=== PATIENT | female | born 1960 | race Caucasian/White ===

== ENCOUNTER 2017-02-16 16:38 | Emergency (ER) | payer OTHER ==
[2017-02-16] MEDS ORDERED: BACIGUENT PACKET TP ONE (17:39)
[2017-02-16] MEDS ORDERED: KEFZOL 1 GM IM ONE (17:40)
[2017-02-16] MEDS ORDERED: BACIGUENT PACKET ONE (17:44)
[2017-02-16] MEDS ORDERED: KEFZOL 1 GM ONE (17:44)
--- NOTE | 2017-02-16 17:46 | ERPHSYRPT ---
- History of Present Illness Time Seen by Provider: 02/16/17 17:39 Source: patient Exam Limitations: no limitations Patient Subjective Stated Complaint: pain and ulcer to left lower leg for one year. took antibiotics in december and it got better but over the past month has gotten worse. Triage Nursing Assessment: ambulated to room without difficulty. skin w/d, color normal. has open area to left ankle with minimal drainage. Physician History: 56-year-old white female arrives with complaint of a ulcer on her left lower leg symptoms for a year. She states she has been seen by her family secondary to this having been recently placed on Bactrim and then changed to doxycycline today when she was seen by nurse practitioner. She has no nausea no vomiting no fevers She does feel like her ulcer is worse for the past couple days. Past medical history includes GERD, osteoarthritis, seizures in the distant past. Past surgical history includes cholecystectomy, tubal ligation, hernia and varicose veins. \ Social history is positive for tobacco Timing/Duration: other (symptoms for a year worse the past couple of weeks) Severity: moderate Modifying Factors: Improves With: other (patient had been on Bactrim and was placed on doxycycline today by outpatient clinic) Allergies/Adverse Reactions: No Known Drug Allergies Allergy (Verified 02/16/17 16:58) Home Medications: Doxycycline Hyclate 100 mg [Vibramycin 100 MG] 100 mg PO BID 02/16/17 [ History] Hx Tetanus, Diphtheria Vaccination/Date Given: No Hx Influenza Vaccination/Date Given: No Hx Pneumococcal Vaccination/Date Given: No - Review of Systems Constitutional: No Fever, No Chills Eyes: No Symptoms Ears, Nose, & Throat: No Symptoms Respiratory: No Cough, No Dyspnea Cardiac: No Chest Pain, No Edema, No Syncope Abdominal/Gastrointestinal: No Abdominal Pain, No Nausea, No Vomiting, No Diarrhea Genitourinary Symptoms: No Dysuria Musculoskeletal: Other (left leg pain at ulcer) Skin: Other (venous stasis ulcer left distal leg) Neurological: No Dizziness, No Focal Weakness, No Sensory Changes Psychological: No Symptoms Endocrine: No Symptoms All Other Systems: Reviewed and Negative - Past Medical History Pertinent Past Medical History: Yes Neurological History: Seizures ENT History: No Pertinent History Cardiac History: No Pertinent History Respiratory History: No Pertinent History Endocrine Medical History: No Pertinent History Musculoskeletal History: Osteoarthritis GI Medical History: GERD History: No Pertinent History Psycho-Social History: No Pertinent History Female Reproductive Disorders: No Pertinent History Other Medical History: last seizure was 1968 - Past Surgical History Past Surgical History: Yes Neuro Surgical History: No Pertinent History Cardiac: No Pertinent History Respiratory: No Pertinent History Gastrointestinal: Cholecystectomy, Hernia Repair Genitourinary: No Pertinent History Musculoskeletal: No Pertinent History Female Surgical History: Tubal Ligation Other Surgical History: Varicose vein surgery - Social History Smoking Status: Current every day smoker How long have you smoked: 30 Exposure to second hand smoke: No Drug Use: none Patient Lives Alone: No - Nursing Vital Signs Nursing Vital Signs: Initial Vital Signs Temperature 98 F 02/16/17 16:53 Pulse Rate 59 L 02/16/17 16:53 Respiratory Rate 16 02/16/17 16:53 Blood Pressure 164/88 02/16/17 16:53 O2 Sat by Pulse Oximetry 97 02/16/17 16:53 Pain Scale Pain Intensity 10 - Physical Exam General Appearance: no apparent distress, alert Eye Exam: PERRL/EOMI, eyes nml inspection Ears, Nose, Throat Exam: normal ENT inspection, TMs normal, pharynx normal, moist mucous membranes Neck Exam: normal inspection, non-tender, supple, full range of motion Respiratory Exam: normal breath sounds, lungs clear, No respiratory distress Cardiovascular Exam: regular rate/rhythm, normal heart sounds, normal peripheral pulses Gastrointestinal/Abdomen Exam: soft, normal bowel sounds, No tenderness, No mass Back Exam: normal inspection, normal range of motion, No CVA tenderness, No vertebral tenderness Extremity Exam: other (patient with multiple varicosities the lower legs venous- stasis ulcer approximately 4 cm left medial lower leg appears to be dry and is not weeping) Neurologic Exam: alert, oriented x 3, cooperative, normal mood/affect, nml cerebellar function, nml station & gait, sensation nml, No motor deficits Skin Exam: warm, dry, other (4 cm venous stasis ulcer left medial leg appears to be dry does not appear to be weeping), No rash Lymphatic Exam: No adenopathy SpO2 Interpretation: normal (97%) SpO2: 97 - Course Nursing assessment & vital signs reviewed: Yes Ordered Tests: Active Orders 24 hr Category Date Time Status Wound Care STAT Care 02/16/17 17:39 Active Medication Summary Generic Name Dose Route Start Last Admin Trade Name Freq PRN Reason Stop Dose Admin Cefazolin Sodium 1 g 02/16/17 17:40 Kefzol 1 Gm IM 02/16/17 17:41 STAT ONE Discontinued Medications Generic Name Dose Route Start Last Admin Trade Name Freq PRN Reason Stop Dose Admin Bacitracin 0.9 gm 02/16/17 17:39 Baciguent Packet TP 02/16/17 17:40 STAT ONE - Progress Progress: improved Progress Note: 02/16/17 17:44 56-year-old white female with the what appears to be a venous stasis ulcer on her left medial lower leg symptoms for a year. She states that it had improved with antibiotics in the past however recently it had become erythematous and began to feel painful. She hasn't seen her family doctor was placed on Bactrim she states that she was changed to doxycycline today by the outpatient clinic. She states she has not been placed on anything for pain. Will go ahead and have the nurses clean the area apply bacitracin. Will give the patient was shot of Rocephin. Will have patient remain on doxycycline. Will write for a very small amount of the [place] patient has been warned that she is not to be on this medication for more than a brief period of time. - Departure Time of Disposition: 17:46 Departure Disposition: Home Clinical Impression: Venous stasis ulcer Qualifiers: Venous stasis ulcer site: other part of lower leg Varicose vein presence: with varicose veins Laterality: left Non-pressure ulcer stage: unspecified non- pressure ulcer stage Qualified Code(s): I83.028 - Varicose veins of left lower extremity with ulcer other part of lower leg; L97.829 - Non-pressure chronic ulcer of other part of left lower leg with unspecified severity Condition: Fair Critical Care Time: No Additional Instructions: Return home. Doxycycline as previously prescribed to today by outpatient clinic. [place] 5/325 #12 one orally every 4-6 hours as needed for pain. Clean area and apply bacitracin daily. Follow-up with Dr. Marquez. Return for acute distress or for severe symptoms. Prescriptions: Hydrocodone/Acetaminophen [[place] 5-325 Tablet] 1 tab PO Q4-6HPRN PRN #12 tablet PRN Reason: Pain
[2017-02-16 17:54] VITALS: BP 127/84; PULSE 52; O2SAT 96
== END 2017-02-16 18:14 | disposition home or self-care (01) ==
LOC: ED 16:38
DX: I83.028 Varicose veins of left lower extremity with ulcer other part of lower leg (principal); L97.829 Non-pressure chronic ulcer of other part of left lower leg with unspecified severity; Z79.899 Other long term (current) drug therapy
CPT/HCPCS: 96372; 99284; J0690; A9270-GY

== ENCOUNTER 2017-07-17 11:38 | Emergency (ER) | payer OTHER, SELFPAY ==
--- NOTE | 2017-07-17 12:11 | ERPHSYRPT ---
- History of Present Illness Time Seen by Provider: 07/17/17 11:58 Source: patient Exam Limitations: no limitations Patient Subjective Stated Complaint: pt states she noticed her right foot hurting for the past 1 week. worse over the past few days. denies any injury. states she has trouble with circulation in both extremities. Triage Nursing Assessment: pt pink, warm, dry. bilaterl lower extremities have edema. pedal pulses equal and palpable. no bruising or deformities noted. Physician History: 56-year-old white female arrives with complaint of pain and swelling of her right foot and distal leg symptoms 1 week she denies any injury. Patient does have a history of [place] these she apparently has had superficial thrombophlebitis in the past. She states she takes [place] for pain she is also been taking Advil and Aleve without relief. She states she contacted her vascular specialist and he recommended that she come to the emergency room because she was unable to get into her clinic here at [facility]. Patient has not had any fevers no nausea no vomiting she denies any injury to her leg Past medical history includes GERD, osteoarthritis, seizures Varicosities in her legs Superficial thrombophlebitis Past surgical history includes cholecystectomy, tubal ligation, hernia, varicose veins. social history is positive for [place]bb[place] use. Method of Injury: unknown Occurred: last week Quality: constant Severity of Pain-Max: mild Severity of Pain-Current: mild Lower Extremities Pain: leg: right, foot: right Modifying Factors: Improves With: nothing Associated Symptoms: none Allergies/Adverse Reactions: No Known Drug Allergies Allergy (Verified 07/17/17 11:58) Home Medications: Meloxicam 15 mg [Meloxicam 15 MG] 15 mg PO DAILY 07/17/17 [History] Hx Tetanus, Diphtheria Vaccination/Date Given: Yes (up to date) Hx Influenza Vaccination/Date Given: No Hx Pneumococcal Vaccination/Date Given: No Immunizations Up to Date: Yes - Review of Systems Constitutional: No Fever, No Chills Eyes: No Symptoms Ears, Nose, & Throat: No Symptoms Respiratory: No Cough, No Dyspnea Cardiac: No Chest Pain, No Edema, No Syncope Abdominal/Gastrointestinal: No Abdominal Pain, No Nausea, No Vomiting, No Diarrhea Musculoskeletal: Arthralgias, Other (pain and swelling right distal leg and foot ) Skin: No Rash Neurological: No Dizziness, No Focal Weakness, No Sensory Changes Psychological: No Symptoms Endocrine: No Symptoms All Other Systems: Reviewed and Negative - Past Medical History Pertinent Past Medical History: Yes Neurological History: Seizures ENT History: No Pertinent History Cardiac History: No Pertinent History Respiratory History: No Pertinent History Endocrine Medical History: No Pertinent History Musculoskeletal History: Osteoarthritis GI Medical History: GERD History: No Pertinent History Psycho-Social History: No Pertinent History Female Reproductive Disorders: No Pertinent History Other Medical History: last seizure was 1968 - Past Surgical History Past Surgical History: Yes Neuro Surgical History: No Pertinent History Cardiac: No Pertinent History Respiratory: No Pertinent History Gastrointestinal: Cholecystectomy, Hernia Repair Genitourinary: No Pertinent History Musculoskeletal: No Pertinent History Female Surgical History: Tubal Ligation Other Surgical History: Varicose vein surgery - Social History Smoking Status: Current every day smoker How long have you smoked: 40 Exposure to second hand smoke: No Drug Use: none Patient Lives Alone: No - Female History Hx Now: No - Nursing Vital Signs Nursing Vital Signs: Initial Vital Signs Temperature 98.0 F 07/17/17 11:57 Pulse Rate 58 L 07/17/17 11:57 Respiratory Rate 18 07/17/17 11:57 Blood Pressure 144/95 07/17/17 11:57 O2 Sat by Pulse Oximetry 99 07/17/17 11:57 Pain Scale Pain Intensity 6 - Physical Exam General Appearance: alert, obese Eyes, Ears, Nose, Throat Exam: moist mucous membranes Neck Exam: non-tender, supple Cardiovascular/Respiratory Exam: chest non-tender, normal breath sounds, regular rate/rhythm, no respiratory distress Gastrointestinal/Abdominal Exam: non-tender, guarding Back Exam: normal inspection, No vertebral tenderness Hips Exam: bilateral: non-tender, normal inspection, normal range of motion, no evidence of injury Legs Exam: right leg: swelling, left leg: non-tender, normal inspection, bilateral leg: normal range of motion, no evidence of injury, other (multiple varicosities bilateral lower legs and feet pain with palpation right distal leg anteriorly posteriorly pain with palpation right proximal foot dorsal pedal posterior tibial pulses intact and symmetrical bilaterally good capillary refill all toes bilaterally) Knees Exam: bilateral knee: non-tender, normal inspection, normal range of motion, no evidence of injury Foot Exam: right foot: swelling, other (pain with palpation right proximal foot) , left foot: non-tender, normal inspection, bilateral foot: normal range of motion, no evidence of injury DTR - Lower Extremities Exam: ankle (R): 2+, ankle (L): 2+ Neuro/Tendon Exam: normal sensation, normal motor functions Mental Status Exam: alert, oriented x 3, cooperative Skin Exam: normal color, warm, dry SpO2 Interpretation: normal (99%) SpO2: 99 Oxygen Delivery: Room Air - Course Nursing assessment & vital signs reviewed: Yes - Radiology Exams Right Foot X-ray Interpretation: Discussed w/ radiologist, Other (osteopeninia and mild spurring of the midfoot and plantar calcaneus. No new or acute findings) Right Ankle X-ray Interpretation: Discussed w/ radiologist, Other (x-ray right ankle: Osteopenia and tiny spurring of the midfoot and plantar calcaneus. Diffuse soft tissue swelling/edema. Tiny soft tissue calcific granuloma in the anterior lateral lower leg. No acute fracture, dislocation, or suspicious bony lesions.) - Radiology Ultrasound Exam Venous Upper Extremity Ultrasound: discussed w/radiologist, Other (venous Doppler right lower extremity : Right leg negative for DVT) Ordered Tests: Active Orders 24 hr Category Date Time Status ANKLE (3 VIEWS) Stat Exams 07/17/17 13:15 Completed FOOT (MINIMUM 3 VIEWS) Stat Exams 07/17/17 13:15 Completed VENOUS UNILAT/LIMITED EXTREMIT [US] Stat Exams 07/17/17 13:00 Completed BMP Stat Lab 07/17/17 12:15 Completed CBC W DIFF Stat Lab 07/17/17 12:15 Completed D-DIMER QUANTITATION Stat Lab 07/17/17 12:15 Completed Medication Summary Discontinued Medications Generic Name Dose Route Start Last Admin Trade Name Amanda PRN Reason Stop Dose Admin Hydrocodone Bitart/Acetaminophen 1 tab 07/17/17 13:17 07/17/17 13:22 [place] 5/325 Mg PO 07/17/17 13:18 1 tab STAT ONE Administration Hydrocodone Bitart/Acetaminophen Confirm 07/17/17 13:21 [place] 5/325 Mg Administered 07/17/17 13:22 Dose 1 tab .ROUTE .STK-MED ONE Lab/Rad Data: Laboratory Result Diagrams 07/17/17 12:15 07/17/17 12:15 Laboratory Results 07/17/17 07/17/17 07/17/17 Range/Units 12:15 12:15 12:15 WBC 4.0 (4.0-10.5) K/mm3 RBC 3.72 L (4.1-5.4) M/mm3 Hgb 11.3 L (12.0-16.0) gm/dl Hct 37.4 (35-47) % MCV 100.5 H (78-100) fl MCH 30.3 (26-32) pg MCHC 30.2 L (32-36) g/dl RDW 14.0 (11.5-14.0) % Plt Count 167 (150-450) K/mm3 MPV 10.4 H (6-9.5) fl Gran % 48.1 (36.0-66.0) % Lymphocytes % 37.9 (24.0-44.0) % Monocytes % 7.9 (0.0-12.0) % Eosinophils % 5.4 H (0.00-5.0) % Basophils % 0.7 (0.0-0.4) % Basophils # 0.03 (0-0.4) D-Dimer 464.23 (0-500) ng/mL Sodium 143 (136-145) mEq/L Potassium 4.1 (3.5-5.1) mEq/L Chloride 108 H (98-107) mEq/L Carbon Dioxide 28.5 (21-32) mEq/L Anion Gap 10.2 (5-15) MEQ/L BUN 20 (9-20) mg/dL Creatinine 0.63 (0.55-1.30) mg/dl Estimated GFR > 60 ML/MIN Glucose 89 (70-110) MG/DL Calcium 8.8 (8.5-10.1) mg/dL - Progress Progress: improved Progress Note: 07/17/17 13:18 56-year-old white female with history of superficial thrombophlebitis of her lower extremities in the past complains of pain in her right foot and distal leg symptoms for a week. Patient states she talked with her specialist today and she was recommended to come into the emergency room she does state that she's been having swelling. Patient had venous Doppler done of her right lower extremity no thromboembolism are noted. D-dimer within normal limits chemistry CBC essentially normal. Patient is tender with palpation to the distal right leg and proximal foot. Will go ahead and obtain x-ray to rule out osseous injury. Patient is on [place] at home for pain she states that these aren't helping her however she hasn't taken any this morning. Patient does have an appointment with her nurse practitioner tomorrow. Will give patient [place] await x-ray report. 07/17/17 13:56 X-ray the patient's right ankle shows osteopenia and tiny spurring of the midfoot and plantar calcaneus. Diffuse soft tissue swelling/edema. Tiny soft tissue calcific granuloma in the anterior lateral lower leg. No acute fracture , dislocation, or suspicious bony lesion. X-ray of the patient's right foot shows osteopenia and mild spurring of the mid foot and plantar calcaneus. No new/acute findings. Patient is already on meloxicam Patient has [place] at home prescribed by her family doctor. She is given [place] one tablet here in the emergency room she did not take any this morning. Patient states she has crutches and a walker at home. Will apply Adebayo wrap to the patient's right ankle. Patient is continue using her walker or crutches weightbearing as tolerated right foot and ankle. Take her meloxicam and [place] as prescribed by her family doctor. Patient states she is scheduled to see Awa Burden tomorrow. She'll be advised to ice and elevate her right ankle. I have told her I only want the [place] wrap on for a day or 2 unless told differently by her family doctor. - Departure Time of Disposition: 13:58 Departure Disposition: Home Clinical Impression: Pain in right ankle and joints of right foot Condition: Fair Critical Care Time: No Referrals: TOBIAS ROBERTSON [Primary Care Provider] - Additional Instructions: Return home. Ice and elevate your right ankle and foot 24-48 hours. Meloxicam as prescribed by your family doctor. [place] as prescribed by your family doctor. Use your crutches or walker weight-bearing as tolerated right foot. Follow-up with your family doctor (nurse practitioner) tomorrow as scheduled. Return for acute distress or for severe symptoms.
[2017-07-17 12:26] LABS: BASOPHIL % 0.7 % (0.0-0.4); Basophil (Absolute #) 0.03 (0-0.4); Eosinophil % 5.4 % (0.00-5.0); Eosinophil (Absolute #) 0.22 (0-0.5); Granulocyte Absolute (ANC) 1.94 (1.4-6.9); Granulocytes % 48.1 % (36.0-66.0); Hematocrit 37.4 % (35-47); Hemoglobin 11.3 gm/dl (12.0-16.0); Lymphocyte (Absolute #) 1.53 (1.0-4.6); Lymphocytes % 37.9 % (24.0-44.0); Mean Cell Volume 100.5 fl (78-100); Mean Corpuscular Hgb Concent. 30.2 g/dl (32-36); Mean Platelet Volume 10.4 fl (6-9.5); Monocyte (Absolute #) 0.32 (0.0-1.3); Monocytes % 7.9 % (0.0-12.0); Platelet Count 167 K/mm3 (150-450); Red Blood Count 3.72 M/mm3 (4.1-5.4)
[2017-07-17 12:28] LABS: Mean Corpuscular Hemoglobin 30.3 pg (26-32)
[2017-07-17 13:00] LABS: ANION GAP 10.2 MEQ/L (5-15); BLOOD UREA NITROGEN 20 mg/dL (9-20); CHLORIDE 108 mEq/L (98-107); Calcium 8.8 mg/dL (8.5-10.1); Carbon Dioxide 28.5 mEq/L (21-32); Creatinine 1 0.63 mg/dl (0.55-1.30); EST GLOMERULAR FILTRATION RATE > 60 ML/MIN; Glucose 89 MG/DL (70-110); Potassium 4.1 mEq/L (3.5-5.1); SODIUM 143 mEq/L (136-145)
[2017-07-17] MEDS ORDERED: NORCO 5/325 MG PO ONE (13:17)
[2017-07-17] MEDS ORDERED: NORCO 5/325 MG ONE (13:21)
--- NOTE | 2017-07-17 13:22 | XRAY ---
Indication: Right lower extremity pain and swelling 1 week. Pain with walking/activity. Two-dimensional sonogram and color Doppler imaging of the major venous vessels of the right leg was performed. Comparison: None No thrombus seen in the examined deep venous vessels of the right leg including greater saphenous vein. Veins demonstrate normal compressibility. Venous waveforms are normal with and without augmentation. Impression: Right leg negative for DVT.
--- NOTE | 2017-07-17 13:44 | XRAY ---
Indication: Pain and swelling 1 week. Comparison: June 20, 2010. 3 nonweightbearing views of the right foot again demonstrates osteopenia and mild spurring of the midfoot and plantar calcaneus. No new/acute findings.
--- NOTE | 2017-07-17 13:49 | XRAY ---
Indication: Pain and swelling 1 week. Comparison: June 20, 2010. 3 views of the right ankle again demonstrates osteopenia and tiny spurring of the midfoot and plantar calcaneus. Diffuse soft tissue swelling/edema. Tiny soft tissue calcific granuloma in the anterior lateral lower leg. No acute fracture, dislocation, or suspicious bony lesions.
[2017-07-17 13:50] VITALS: O2SAT 99
[2017-07-17 14:19] VITALS: BP 168/81; PULSE 59
== END 2017-07-17 14:20 | disposition home or self-care (01) ==
LOC: ED 11:38
DX: M25.571 Pain in right ankle and joints of right foot (principal); M19.90 Unspecified osteoarthritis, unspecified site; I83.93 Asymptomatic varicose veins of bilateral lower extremities; K21.9 Gastro-esophageal reflux disease without esophagitis; G40.909 Epilepsy, unspecified, not intractable, without status epilepticus
CPT/HCPCS: 36415; 73610; 73630; 80048; 85025; 85379; 93971; 99284; A9270-GY

== ENCOUNTER 2018-02-12 16:13 | Emergency (ER) | payer OTHER ==
[2018-02-12 16:43] VITALS: O2SAT 96
[2018-02-12] MEDS ORDERED: TORAdol 30 mg Injection IM ONE (17:11)
[2018-02-12] MEDS ORDERED: TORAdol 30 mg Injection ONE (17:14)
--- NOTE | 2018-02-12 17:17 | ERPHSYRPT ---
- History of Present Illness Time Seen by Provider: 02/12/18 16:49 Source: patient Exam Limitations: no limitations Patient Subjective Stated Complaint: fell yesterday outside. pain to left lower leg and foot and left ribs. also having pain and swelling to right hand. also having a headache. denies striking head. Triage Nursing Assessment: ambulated to room per self. skin w/d, color normal, resp easy. tender left lower leg, left lateral ribs, and right hand. swelling and discoloration noted to right hand. Physician History: 57-year-old white female arrives with complaint of pain in her left ribs, left foot right hand after falling yesterday. She states she has a headache however she did not hit her head nor did she have loss of consciousness. Past medical history includes GERD, osteoarthritis, seizures. Past surgical history includes cholecystectomy, tubal ligation, varicose veins, hernia Social history patient denies tobacco alcohol or illicit drug use Timing/Duration: yesterday Severity: moderate Modifying Factors: Improves With: nothing Associated Symptoms: chest pain (pain in the left ribs with palpation and movement), No nausea, No vomiting, No abdominal pain, No shortness of breath, No heartburn, No diaphoresis, No cough, No chills, No fever, No headaches, No loss of appetite, No malaise, No rash, No syncope, No seizure, No weakness Allergies/Adverse Reactions: No Known Drug Allergies Allergy (Verified 02/12/18 16:23) Home Medications: Furosemide 60 mg PO DAILY 02/12/18 [History] Ibuprofen 200 mg [Motrin 200 mg] 200 mg PO QIDPRN PRN 02/12/18 [History] Naproxen 500 mg PO BID 02/12/18 [History] Potassium Chloride 10 Meq Tab* [Klor Con 10 MEQ] 10 meq PO DAILY 02/12/18 [ History] Hx Tetanus, Diphtheria Vaccination/Date Given: No Hx Influenza Vaccination/Date Given: No Hx Pneumococcal Vaccination/Date Given: Yes - Review of Systems Constitutional: No Fever, No Chills Eyes: No Symptoms Ears, Nose, & Throat: No Symptoms Respiratory: Other (left rib pain) Cardiac: Chest Pain (left rib pain) Abdominal/Gastrointestinal: No Abdominal Pain, No Nausea, No Vomiting, No Diarrhea Musculoskeletal: Other (right hand pain and bruising and swelling, left foot pain) Skin: No Rash Neurological: No Dizziness, No Focal Weakness, No Sensory Changes Psychological: No Symptoms Endocrine: No Symptoms All Other Systems: Reviewed and Negative - Past Medical History Pertinent Past Medical History: Yes Neurological History: Epilepsy ENT History: No Pertinent History Cardiac History: Hypertension, Other Respiratory History: COPD Endocrine Medical History: No Pertinent History Musculoskeletal History: Osteoarthritis, Osteoporosis GI Medical History: GERD History: No Pertinent History Psycho-Social History: No Pertinent History Female Reproductive Disorders: No Pertinent History Other Medical History: vericose veins in B LE, surgery on B LE for vericose veins, torn R meniscus - Past Surgical History Past Surgical History: Yes Neuro Surgical History: No Pertinent History Cardiac: No Pertinent History Respiratory: No Pertinent History Gastrointestinal: Cholecystectomy, Hernia Repair Genitourinary: No Pertinent History Musculoskeletal: No Pertinent History Female Surgical History: Tubal Ligation Other Surgical History: Varicose vein surgery - Social History Smoking Status: Current every day smoker How long have you smoked: 40 Exposure to second hand smoke: No Drug Use: none Patient Lives Alone: No - Female History Hx Now: No - Nursing Vital Signs Nursing Vital Signs: Initial Vital Signs Temperature 98.1 F 02/12/18 16:15 Pulse Rate 80 02/12/18 16:15 Respiratory Rate 16 02/12/18 16:15 Blood Pressure 134/96 02/12/18 16:15 O2 Sat by Pulse Oximetry 96 02/12/18 16:15 Pain Scale Pain Intensity 6 - Physical Exam General Appearance: no apparent distress, alert Eye Exam: PERRL/EOMI, eyes nml inspection Ears, Nose, Throat Exam: normal ENT inspection, TMs normal, pharynx normal, moist mucous membranes Neck Exam: normal inspection, non-tender, supple, full range of motion Respiratory Exam: normal breath sounds, chest tenderness, other (Left ribs tender with palpation inferior to left breast) Cardiovascular Exam: regular rate/rhythm, normal heart sounds, normal peripheral pulses, capillary refill <2 sec, No murmur Gastrointestinal/Abdomen Exam: soft, normal bowel sounds, No tenderness, No mass Back Exam: normal inspection, normal range of motion, No CVA tenderness, No vertebral tenderness Extremity Exam: other (Moderate amount of edema right posterior hand, full range of motion all extremities, left pressing machine tender with palpation medially and laterally) Neurologic Exam: alert, oriented x 3, 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, 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, normal mood/affect, nml cerebellar function, nml station & gait, sensation nml, No motor deficits Skin Exam: normal color, warm, dry, No rash SpO2 Interpretation: normal (96%) SpO2: 96 Oxygen Delivery: Room Air - Course Nursing assessment & vital signs reviewed: Yes EKG Interpreted by Me: RATE (69 bpm), Sinus Rhythm, NORMAL AXIS, Other (EKG: Sinus rhythm, 69 bpm, normal axis, no acute ST or T wave changes noted) - Radiology Exams Right Hand X-ray Interpretation: Interpreted by me (fracture of right fourth metacarpal) Left Foot X-ray Interpretation: Interpreted by me, Negative, No Fracture, No Subluxation Chest X-ray Interpretation: Interpreted by me (chest x-ray: no rib fractures, no pneumothorax, no pneumonia) Ordered Tests: Active Orders 24 hr Category Date Time Status EKG-ER Only STAT Care 02/12/18 17:18 Active CHEST 2 VIEWS (PA AND LAT) Stat Exams 02/12/18 17:10 Taken FOOT (MINIMUM 3 VIEWS) Stat Exams 02/12/18 17:11 Taken HAND (MINIMUM 3 VIEWS) Stat Exams 02/12/18 17:09 Taken Medication Summary Discontinued Medications Generic Name Dose Route Start Last Admin Trade Name Amanda PRN Reason Stop Dose Admin Ketorolac Tromethamine 60 mg 02/12/18 17:11 02/12/18 17:15 Toradol 30 Mg Injection IM 02/12/18 17:12 60 mg STAT ONE Administration Ketorolac Tromethamine Confirm 02/12/18 17:14 Toradol 30 Mg Injection Administered 02/12/18 17:15 Dose 60 mg .ROUTE .STK-MED ONE - Progress Progress: improved Progress Note: 02/12/18 18:23 57-year-old white female arrives with complaint of moderate amount of pain and bruising to her dorsal right hand, pain in her left foot, and pain in her left ribs inferior to her breast after falling yesterday. X-ray of the right hand shows a fracture of her right fourth metacarpal. X-ray of the left foot no fractures or subluxation. Chest x-ray no rib fractures no pneumothorax no pneumonia. Will go ahead and place acewrap and postop shoe on the patient's left foot, will place OCL splint on the patient's right hand. Will write for Nelson for pain. Patient will need to follow-up with [facility]. 02/12/18 18:33 - Departure Time of Disposition: 18:33 Departure Disposition: Home Clinical Impression: Fracture of fourth metacarpal bone of right hand Qualifiers: Encounter type: initial encounter Fracture type: closed Metacarpal location: shaft Fracture alignment: displaced Qualified Code(s): S62.324A - Displaced fracture of shaft of fourth metacarpal bone, right hand, initial encounter for closed fracture Contusion of rib on left side Qualifiers: Encounter type: initial encounter Qualified Code(s): S20.212A - Contusion of left front wall of thorax, initial encounter Sprain of left foot Qualifiers: Encounter type: initial encounter Qualified Code(s): S93.602A - Unspecified sprain of left foot, initial encounter Condition: Fair Critical Care Time: No Referrals: TOBIAS ROBERTSON [Primary Care Provider] - Instructions: Preventing Falls Additional Instructions: Return home. Ice to left ribs left foot and right hand 24-48 hours. Elevate right hand 24-48 hours. Nelson as prescribed for pain. Follow-up with [facility] fracture clinic tomorrow a.m. 8:00. Return for acute distress or for severe symptoms. Prescriptions: Hydrocodone/Acetaminophen [Nelson 5-325 Tablet] 1 tab PO Q4-6HPRN PRN #12 tablet MDD 6 tablets PRN Reason: Pain
[2018-02-12 18:15] VITALS: BP 138/90; PULSE 69
--- NOTE | 2018-02-13 09:31 | XRAY ---
Exam: Two-view chest from 02/12/2018 Comparison: Two-view chest from 04/18/2016. Indication: Patient fell yesterday, complains of left-sided rib pain. Findings: Upright PA and lateral chest films are submitted for evaluation. The heart size and contour are normal. There is slight tortuosity of the distal descending thoracic aorta. The remainder of the wisam and mediastinal structures appears unremarkable. There is mild hyperinflation of the lungs. No air space infiltrates, vascular congestion, pleural fluid, or pneumothorax is seen. The bones appear demineralized. Subtle chronic changes are seen within the lower thoracic spine. This exam does not represent a detailed left rib exam, but a gross left rib fracture is not seen. Impression: 1. Mildly hyperinflated chest without evidence of acute cardiopulmonary disease. 2. No left-sided pneumothorax or pleural effusion is seen. I see no gross evidence of acute fracture of the left rib cage on the PA chest film. However, assessment is limited. If pain persists, left rib films may be helpful for further liquidation.
--- NOTE | 2018-02-13 10:10 | XRAY ---
Exam: 3 view right hand series from 02/12/2018. Comparison: None. Indication: Patient fell yesterday, complains of pain and swelling. Findings: AP, oblique, and 2 lateral radiographs are submitted for evaluation. There is an oblique, slightly overriding fracture of the distal shaft of the right fourth metacarpal. There is about 3.8 mm radial displacement of the distal fractured element at the radial margin of the fracture on the AP image. I also note minimal/mild palmar angulation of the distal fractured element on the lateral radiograph. Overlying soft tissue swelling is seen along the dorsal aspect of the metacarpal region. I also note an old healed fracture of the distal right radius. A sclerotic rimmed oval calcification adjacent to the distal right ulna is believed to represent an ununited old avulsion fracture injury. No other acute fracture or dislocation is seen. The joint spaces appear unremarkable. Impression: 1. Mildly overriding, oblique fracture of distal shaft of right fourth metacarpal with about 3.8 mm lateral displacement of the main distal fractured element along the radial margin of the fracture site. Cortical step-off deformity is slightly less along the ulnar aspect of the fracture measuring 2.5 mm. I also note minimal/mild palmar angulation of the distal fractured element on the lateral radiographs. 2. No other acute right hand fracture or dislocation is seen. 3. Old healed fractures of the distal right radius and ulnar styloid process.
--- NOTE | 2018-02-13 10:20 | XRAY ---
Exam: 3 views of the left foot from 02/12/2018. Comparison: 3 views of the left foot from 06/12/2007. Indication: Patient fell yesterday, complains of pain across the top of her left foot. Findings: AP, oblique, and lateral images of the left foot were obtained. I see no acute fracture or dislocation. The bones are demineralized. The tarsal-metatarsal joints align correctly. There are claw toe deformities of the left second through fifth toes with hyperextension of the respective second through fifth MTP joints and significant flexion of the PIP joints of the second through fifth toes. A tiny plantar left calcaneal spur is again seen. No radiopaque soft tissue foreign body is seen. No other significant focal bone or joint abnormality is seen. Impression: 1. No acute left foot fracture or dislocation is seen. 2. Claw toe deformities of the left second through fifth toes. To a lesser extent, I believe this was seen on the prior left foot study from 06/12/2007 as well. 3. Stable tiny plantar left calcaneal spur.
== END 2018-02-12 18:52 | disposition home or self-care (01) ==
LOC: ED 16:13
DX: S62.324A Displaced fracture of shaft of fourth metacarpal bone, right hand, initial encounter for closed fracture (principal); S20.212A Contusion of left front wall of thorax, initial encounter; S93.602A Unspecified sprain of left foot, initial encounter; W18.39XA Other fall on same level, initial encounter; R51 Headache; R07.89 Other chest pain; M79.641 Pain in right hand; M79.672 Pain in left foot
CPT/HCPCS: 29126; 71046; 73130; 73630; 93005; 96372; 99284; J1885

== ENCOUNTER 2019-01-04 14:11 | Emergency (ER) | payer OTHER ==
--- NOTE | 2019-01-04 14:54 | ERPHSYRPT ---
- History of Present Illness Time Seen by Provider: 01/04/19 14:51 Source: patient Exam Limitations: no limitations Patient Subjective Stated Complaint: states has had lower abd and lower back pain for three to four months. states she has been seeing family doctor and is supposed to get a ct scan done but is waiting on insurance to approve it. states pain keeps getting worse. hx of a fall in september with injury to both knees. Triage Nursing Assessment: ambulated to room per self without difficulty. skin w/d, color normal, resp easy. gait normal. abd soft, nontender at this time. lower backfiller. Physician History: Ms Montaño is a 58 years old female came to ER states has had lower abdominal and lower back pain for three to four months. states she has been seeing family doctor and is supposed to get a ct scan done but is waiting on insurance to approve it. states pain keeps getting worse. hx of a fall in september with injury to both knees Timing/Duration: week(s) (12- 14 weeks) Severity: mild Associated Symptoms: abdominal pain, other (back pain), No heartburn, No diaphoresis, No chills, No chest pain, No fever, No headaches, No loss of appetite, No malaise, No rash, No seizure, No weakness Allergies/Adverse Reactions: No Known Drug Allergies Allergy (Verified 02/12/18 16:23) Home Medications: Furosemide 60 mg PO DAILY 02/12/18 [History] Ibuprofen 200 mg [Motrin 200 mg] 200 mg PO QIDPRN PRN 02/12/18 [History] Naproxen 500 mg PO BID 02/12/18 [History] Potassium Chloride 10 Meq Tab* [Klor Con 10 MEQ] 10 meq PO DAILY 02/12/18 [ History] Hx Tetanus, Diphtheria Vaccination/Date Given: No Hx Influenza Vaccination/Date Given: No Hx Pneumococcal Vaccination/Date Given: Yes - Review of Systems Constitutional: No Fever, No Chills Eyes: No Symptoms Ears, Nose, & Throat: No Symptoms Respiratory: No Cough, No Dyspnea Cardiac: No Chest Pain, No Edema, No Syncope Abdominal/Gastrointestinal: Abdominal Pain, No Nausea, No Vomiting, No Diarrhea Genitourinary Symptoms: No Dysuria Musculoskeletal: Back Pain, No Neck Pain Skin: No Rash Neurological: No Dizziness, No Focal Weakness, No Sensory Changes Psychological: No Symptoms Endocrine: No Symptoms All Other Systems: Reviewed and Negative - Past Medical History Pertinent Past Medical History: Yes Neurological History: Epilepsy ENT History: No Pertinent History Cardiac History: Hypertension, Other Respiratory History: COPD Endocrine Medical History: No Pertinent History Musculoskeletal History: Osteoarthritis, Osteoporosis GI Medical History: GERD History: No Pertinent History Psycho-Social History: No Pertinent History Female Reproductive Disorders: No Pertinent History Other Medical History: vericose veins in B LE, surgery on B LE for vericose veins, torn R meniscus - Past Surgical History Past Surgical History: Yes Neuro Surgical History: No Pertinent History Cardiac: No Pertinent History Respiratory: No Pertinent History Gastrointestinal: Cholecystectomy, Hernia Repair Genitourinary: No Pertinent History Musculoskeletal: No Pertinent History Female Surgical History: Tubal Ligation Other Surgical History: Varicose vein surgery - Social History Smoking Status: Current every day smoker How long have you smoked: 49 Exposure to second hand smoke: No Drug Use: none Patient Lives Alone: No - Nursing Vital Signs Nursing Vital Signs: Initial Vital Signs Temperature 98.3 F 01/04/19 14:16 Pulse Rate 73 01/04/19 14:16 Respiratory Rate 16 01/04/19 14:16 Blood Pressure 161/77 01/04/19 14:16 O2 Sat by Pulse Oximetry 98 01/04/19 14:16 Pain Scale Pain Intensity 7 - Physical Exam General Appearance: no apparent distress, alert Eye Exam: PERRL/EOMI, eyes nml inspection Ears, Nose, Throat Exam: normal ENT inspection, TMs normal, pharynx normal, moist mucous membranes Neck Exam: normal inspection, non-tender, supple, full range of motion Respiratory Exam: normal breath sounds, lungs clear, No respiratory distress Cardiovascular Exam: regular rate/rhythm, normal heart sounds, normal peripheral pulses Gastrointestinal/Abdomen Exam: soft, normal bowel sounds, No tenderness, No mass Back Exam: normal inspection, normal range of motion, No CVA tenderness, No vertebral tenderness Extremity Exam: normal inspection, normal range of motion, pelvis stable Neurologic Exam: alert, oriented x 3, cooperative, normal mood/affect, nml cerebellar function, nml station & gait, sensation nml, No motor deficits Skin Exam: normal color, warm, dry, No rash Lymphatic Exam: No adenopathy SpO2: 98 - Course Nursing assessment & vital signs reviewed: Yes - Radiology Exams Abdomen X-ray Interpretation: Reviewed by me, Negative Ordered Tests: Active Orders 24 hr Category Date Time Status OBSTR/ACUTE ABDOMEN SERIES Stat Exams 01/04/19 14:29 Taken AMYLASE Stat Lab 01/04/19 14:47 Completed CBC W DIFF Stat Lab 01/04/19 14:47 Completed CMP Stat Lab 01/04/19 14:47 Completed CULTURE,URINE Stat Lab 01/04/19 14:45 Received LIPASE Stat Lab 01/04/19 14:47 Completed UA W/RFX UR CULTURE Stat Lab 01/04/19 14:45 Completed Lab/Rad Data: Laboratory Result Diagrams 01/04/19 14:47 01/04/19 14:47 Laboratory Results 01/04/19 01/04/19 01/04/19 Range/Units 14:47 14:47 14:45 WBC 7.8 (4.0-10.5) K/mm3 RBC 4.45 (4.1-5.4) M/mm3 Hgb 13.6 (12.0-16.0) gm/dl Hct 43.4 (35-47) % MCV 97.5 (78-100) fl MCH 30.6 (26-32) pg MCHC 31.3 L (32-36) g/dl RDW 14.1 H (11.5-14.0) % Plt Count 261 (150-450) K/mm3 MPV 10.2 H (6-9.5) fl Gran % 68.9 H (36.0-66.0) % Eos # (Auto) 0.18 (0-0.5) Absolute Lymphs (auto) 1.71 (1.0-4.6) Absolute Monos (auto) 0.52 (0.0-1.3) Lymphocytes % 21.8 L (24.0-44.0) % Monocytes % 6.6 (0.0-12.0) % Eosinophils % 2.3 (0.00-5.0) % Basophils % 0.4 (0.0-0.4) % Absolute Granulocytes 5.40 (1.4-6.9) Basophils # 0.03 (0-0.4) Sodium 143 (137-145) mmol/L Potassium 3.9 (3.5-5.1) mmol/L Chloride 104 (98-107) mmol/L Carbon Dioxide 32 H (22-30) mmol/L Anion Gap 11.4 (5-15) MEQ/L BUN 21 H (7-17) mg/dL Creatinine 0.65 (0.52-1.04) mg/dL Estimated GFR > 60.0 ML/MIN Glucose 87 (74-106) mg/dL Calcium 9.3 (8.4-10.2) mg/dL Total Bilirubin 0.60 (0.2-1.3) mg/dL AST 19 (14-36) U/L ALT 15 (0-35) U/L Alkaline Phosphatase 80 (38-126) U/L Serum Total Protein 7.7 (6.3-8.2) g/dL Albumin 4.2 (3.5-5.0) g/dL Amylase 83 (30-110) U/L Lipase 57 (23-300) U/L Urine Color YELLOW (YELLOW) Urine Appearance CLOUDY (CLEAR) Urine pH 5.0 (5-6) Ur Specific [place] 1.024 (1.005-1.025) Urine Protein NEGATIVE (Negative) Urine Ketones NEGATIVE (NEGATIVE) Urine Blood MODERATE (0-5) Cedrick/ul Urine Nitrite NEGATIVE (NEGATIVE) Urine Bilirubin NEGATIVE (NEGATIVE) Urine Urobilinogen NEGATIVE (0-1) mg/dL Ur Leukocyte Esterase MODERATE (NEGATIVE) Urine WBC (Auto) 26-50 (0-5) /HPF Urine RBC (Auto) 6-10 (0-2) /HPF U Hyaline Cast (Auto) 3-5 (0-2) /LPF U Epithel Cells (Auto) MANY (FEW) /HPF Urine Bacteria (Auto) FEW (NEGATIVE) /HPF Urine Mucus (Auto) SLIGHT (NEGATIVE) /HPF Urine Culture Reflexed YES (NO) Urine Glucose NEGATIVE (NEGATIVE) mg/dL - Progress Progress: improved Counseled pt/family regarding: lab results, diagnosis, need for follow-up, rad results - Departure Departure Disposition: Home Clinical Impression: Constipation by delayed colonic transit Lumbalgia Qualifiers: Chronicity: chronic Back pain laterality: unspecified Sciatica presence: without sciatica Qualified Code(s): M54.5 - Low back pain; G89.29 - Other chronic pain UTI (urinary tract infection) Qualifiers: Urinary tract infection type: site unspecified Hematuria presence: without hematuria Qualified Code(s): N39.0 - Urinary tract infection, site not specified Condition: Stable Critical Care Time: No Referrals: TOBIAS ROBERTSON [Primary Care Provider] - Instructions: Abdominal Muscle Strain, Constipation, Adult (DC), Low Back Pain (DC) Additional Instructions: ABDOMINAL PAIN 1. There are several different causes for abdominal pain, some of which may not be able to be identified on initial examination. 2. The important thing to remember is that bodily functions can change in a short period of time. If you notice any of the following symptoms, return to the emergency department or consult your doctor immediately: A. Worsening pain or no improvement in the next 12 hours. B. Increasing, severe abdominal pain C. Blood in stool D. Black stools E. Persistent vomiting F. Fever or chills or other symptoms BACK INJURY 1. May apply moist heat frequently for relief of pain. Take care not to burn the skin. Do not use heat for more than 30 minutes at a time. 2. Try to sleep on a firm bed, flat on your back. 3. If no improvement is noticed in 2-3 days, follow up with your family physician. 4. If you notice any numbness, tingling, weakness, or problems with your bowel or bladder, you should call your family physician or return to the emergency department. Discharge/Care Plan SAVI MONTAÑO was seen on 01/04/19 in the Emergency Room. The patient was counseled regarding Diagnosis,Lab results, Imaging studies, need for follow up and when to return to the Emergency Room. Prescriptions given: Discharge Note I have spoken with the patient and/or caregivers. I have explained the patient' s condition, diagnosis and treatment plan based on the information available to me at this time. I have answered the patient's and/or caregiver's questions and addressed any concerns. The patient and/or caregivers have as good understanding of the patient's diagnosis, condition and treatment plan as can be expected at this point. The vital signs have been stable. The patient's condition is stable and appropriate for discharge from the emergency department. The patient will pursue further outpatient evaluation with the primary care physician or other designated or consulting physician as outlined in the discharge instructions. The patient and/or caregivers are agreeable to this plan of care and follow-up instructions have been explained in detail. The patient and/or caregivers have received these instruction. The patient/and or caregivers are aware that any significant change in condition or worsening of symptoms should prompt an immediate return to this or the closest emergency department or call 911. Prescriptions: Ciprofloxacin [Cipro 500 MG] 500 mg PO BIDAC #20 tablet
[2019-01-04 14:56] LABS: BASOPHIL % 0.4 % (0.0-0.4); Basophil (Absolute #) 0.03 (0-0.4); Eosinophil % 2.3 % (0.00-5.0); Eosinophil (Absolute #) 0.18 (0-0.5); Granulocytes % 68.9 % (36.0-66.0); Hematocrit 43.4 % (35-47); Hemoglobin 13.6 gm/dl (12.0-16.0); Lymphocyte (Absolute #) 1.71 (1.0-4.6); Lymphocytes % 21.8 % (24.0-44.0); Mean Cell Volume 97.5 fl (78-100); Mean Corpuscular Hemoglobin 30.6 pg (26-32); Mean Corpuscular Hgb Concent. 31.3 g/dl (32-36); Mean Platelet Volume 10.2 fl (6-9.5); Monocytes % 6.6 % (0.0-12.0); Platelet Count 261 K/mm3 (150-450); Red Blood Count 4.45 M/mm3 (4.1-5.4); Red Cell Distribution Width 14.1 % (11.5-14.0); White Blood Count 7.8 K/mm3 (4.0-10.5)
[2019-01-04 15:07] LABS: ALBUMIN 4.2 g/dL (3.5-5.0); ALKALINE PHOSPHATASE 80 U/L (38-126); AMYLASE 83 U/L (30-110); ANION GAP 11.4 MEQ/L (5-15); BLOOD UREA NITROGEN 21 mg/dL (7-17); CHLORIDE 104 mmol/L (98-107); Calcium 9.3 mg/dL (8.4-10.2); Carbon Dioxide 32 mmol/L (22-30); Creatinine 1 0.65 mg/dL (0.52-1.04); Glucose 87 mg/dL (74-106); LIPASE 57 U/L (23-300); Potassium 3.9 mmol/L (3.5-5.1); SGOT/AST 19 U/L (14-36); SGPT/ALT 15 U/L (0-35); SODIUM 143 mmol/L (137-145); Total Protein 7.7 g/dL (6.3-8.2)
[2019-01-04 15:21] VITALS: BP 154/76; PULSE 68
[2019-01-04 15:29] VITALS: O2SAT 98
[2019-01-04 15:32] LABS: Appearance CLOUDY (CLEAR); Bilirubin NEGATIVE (NEGATIVE); Blood MODERATE Ery/ul (0-5); Epithelial Cells MANY /HPF (FEW); Glucose NEGATIVE (NEGATIVE); Ketones NEGATIVE (NEGATIVE); Leukocyte Esterase MODERATE (NEGATIVE); Mucus SLIGHT /HPF (NEGATIVE); Nitrite NEGATIVE (NEGATIVE); Protein,Urine Dip NEGATIVE (Negative); Specific Gravity 1.024 (1.005-1.025); Urobilinogen NEGATIVE mg/dL (0-1); WBC 26-50 /HPF (0-5)
[2019-01-04 15:33] LABS: Bacteria FEW /HPF (NEGATIVE)
--- NOTE | 2019-01-04 22:42 | XRAY ---
Indication: Abdomen/back pain. Comparison: Chest exam February 12, 2018. 2 views of the abdomen nonacute and nonobstructed with mild diffuse colonic fecal debris, cholecystectomy clips, and a few pelvic phleboliths. Solid organs unremarkable. Osseous structures intact with mild osteopenia. Single frontal chest remains hyperinflated and clear. Heart is not enlarged. Bony thorax intact with mild osteopenia, minimal degenerative changes, and mild multifocal thoracolumbar scoliosis. Impression: 1. Mild fecal stasis without obstruction. 2. Stable nonacute hyperinflated chest. 3. Incidental osteopenia and scoliosis.
== END 2019-01-04 15:46 | disposition home or self-care (01) ==
LOC: ED 14:11
DX: K59.01 Slow transit constipation (principal); M54.5 Low back pain; G89.29 Other chronic pain; N39.0 Urinary tract infection, site not specified; I10 Essential (primary) hypertension; J44.9 Chronic obstructive pulmonary disease, unspecified; M19.90 Unspecified osteoarthritis, unspecified site; K21.9 Gastro-esophageal reflux disease without esophagitis; M81.0 Age-related osteoporosis without current pathological fracture
CPT/HCPCS: 36415; 74022; 80053; 81001; 82150; 83690; 85025; 87086; 99283

== ENCOUNTER 2020-12-29 14:21 | Day surgery (SDC) | payer MEDICARE ==
[2020-12-29] MEDS ORDERED: Depo-Medrol 40 MG/ML IM ONE (14:22)
[2020-12-29] MEDS ORDERED: LIDOCAINE HCL 2% 100 MG/5 ML IJ ONE (14:22)
[2020-12-29] MEDS ORDERED: DIPRIVAN 200 MG/20 ML IV ONE (16:02)
[2020-12-29] MEDS ORDERED: Lactated Ringers 1,000 ML IV ONE (16:06)
--- NOTE | 2020-12-29 16:53 | XRAY ---
Indication: Bilateral L4-S1 MBB. Intraoperative fluoroscopy provided for 13 seconds. Single digital spot image submitted for interpretation demonstrate posterior needle tips projecting over the expected left and right L4-S1 nerve roots. Correlate with intraoperative findings/report.
--- NOTE | 2020-12-29 17:04 | XRAY ---
13 seconds of fluoroscopy was used in surgery for a bilateral L4-L5, L5-S1 MBB.
== END 2020-12-29 16:25 | disposition home or self-care (01) ==
LOC: SDC-PAIN 14:21
PROVIDERS: ATTEND Psychiatry & Neurology Pain Medicine
DX: M47.816 Spondylosis without myelopathy or radiculopathy, lumbar region (principal); I82.409 Acute embolism and thrombosis of unspecified deep veins of unspecified lower extremity; M19.90 Unspecified osteoarthritis, unspecified site; I10 Essential (primary) hypertension; J44.9 Chronic obstructive pulmonary disease, unspecified; K21.9 Gastro-esophageal reflux disease without esophagitis; G62.9 Polyneuropathy, unspecified; Z79.899 Other long term (current) drug therapy
CPT/HCPCS: 64493; 64494; 72020; 77002; J1030; J2704

== ENCOUNTER 2021-01-14 10:38 | Emergency (ER) | payer MEDICARE ==
[2021-01-14] MEDS ORDERED: MORPHINE SULFATE 4 MG INJ IV ONE (11:25)
[2021-01-14] MEDS ORDERED: Sodium Chloride 0.9% 1000 ML 1,000 ML IV STA ×2 (11:25→13:54)
[2021-01-14] MEDS ORDERED: Zofran 4 MG/2 ML VIAL IV ONE (11:25)
[2021-01-14] MEDS ORDERED: MORPHINE SULFATE 4 MG INJ ONE (11:41)
[2021-01-14] MEDS ORDERED: Zofran 4 MG/2 ML VIAL ONE (11:41)
[2021-01-14] MEDS ORDERED: Sodium Chloride 0.9% 1000 ML 1,000 ML ONE ×2 (11:41→13:19)
--- NOTE | 2021-01-14 11:47 | ERPHSYRPT ---
- History of Present Illness Time Seen by Provider: 01/14/21 11:03 Patient Subjective Stated Complaint: "I have nausea and my stomach hurts. I was seen at [facility] a week ago and was put on antibiotics and steriods, I was tested for Covid but I was negative. I went to see Dr. Marquez on Sunday because I was still not better and I'm still not better today." Triage Nursing Assessment: Pt presents to ER with complaints of right middle quad abd pains for over a week along with nausea and some shortness of breath. Pt is alert and oriented x 3. Pt respirations slightly labored, mild wheezes noted throughout. Hx of smoking. Pt is able to ambulate with a slow gait, hx of back pain/issues who she see's a pain doctor for. Pt abd is slightly distended and pt states had diarrhea this AM. Pt is tender upon exam. Pt denies vomiting. Pt skin pink, warm, and dry. Physician History: 60 years old female presented in the ER with chief complaint of nausea and right mid abdominal pain for almost 1 week. Patient reports moderate intensity dull aching to sharp pain, intermittent without any significant aggravating or relieving factors, associated with nausea and dry heaving but no vomiting. She is unable to eat or drink because of worsening nausea. She also have a couple of episodes of loose stools yesterday. Patient reports she was recently evaluated at [facility] and later on in the primary care office for cough and wheezing, was on antibiotics and steroids. She still have some cough but is getting better. No fever or chills reported. Denies any urinary symptoms. Timing/Duration: week(s), intermittent, gradual onset, worse Activities at Onset: rest Quality: aching, dullness, sharpness Abdominal Pain Onset Location: RLQ, flank Pain Radiation: no radiation Severity of Pain-Max: moderate Severity of Pain-Current: moderate Modifying Factors: Improves With: nothing Associated Symptoms: diarrhea, nausea, No vomiting Previous symptoms: no prior history Allergies/Adverse Reactions: No Known Drug Allergies Allergy (Verified 01/14/21 11:18) Home Medications: Furosemide 60 mg PO DAILY 02/12/18 [History] Ibuprofen 200 mg [Motrin 200 mg] 200 mg PO QIDPRN PRN 02/12/18 [History] Naproxen 500 mg PO BID 02/12/18 [History] Potassium Chloride 10 Meq Tab* [Klor Con 10 MEQ] 10 meq PO DAILY 02/12/18 [History] Hx Tetanus, Diphtheria Vaccination/Date Given: Yes Hx Influenza Vaccination/Date Given: Yes Hx Pneumococcal Vaccination/Date Given: Yes Immunizations Up to Date: Yes Travel Risk - International Travel Have you traveled outside of the country in past 3 weeks: No - Coronavirus Screening Are you exhibiting any of the following symptoms?: Yes Symptoms: Shortness of Breath, Vomiting/Diarrhea Close contact with a COVID-19 positive Pt in past 14-21 Days: No - Vaccine Status Have you recieved a Covid-19 vaccination: Yes 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 - Vaccination Dates Date of 2cond Vaccination (if applicable): october 19 - Review of Systems Constitutional: Fatigue, Weakness Eyes: No Symptoms Ears, Nose, & Throat: No Symptoms Respiratory: Cough, Wheezing Cardiac: No Symptoms Abdominal/Gastrointestinal: Abdominal Pain, Nausea, Diarrhea Genitourinary Symptoms: No Symptoms Musculoskeletal: Arthralgias, Back Pain Neurological: No Symptoms Psychological: No Symptoms Endocrine: No Symptoms Hematologic/Lymphatic: No Symptoms Immunological/Allergic: No Symptoms - Past Medical History Pertinent Past Medical History: Yes Neurological History: Seizures ENT History: No Pertinent History Cardiac History: Hypertension, Peripheral Vascular Disease Respiratory History: Bronchitis Endocrine Medical History: No Pertinent History Musculoskeletal History: Osteoarthritis GI Medical History: GERD History: No Pertinent History Psycho-Social History: No Pertinent History Female Reproductive Disorders: No Pertinent History Other Medical History: HX ALSO FX RIGHT UPPER HUMERUS. - Past Surgical History Past Surgical History: Yes Neuro Surgical History: No Pertinent History Cardiac: No Pertinent History Respiratory: No Pertinent History Gastrointestinal: Cholecystectomy, Hernia Repair Genitourinary: No Pertinent History Musculoskeletal: No Pertinent History Female Surgical History: Tubal Ligation Other Surgical History: Varicose vein surgery - Social History Smoking Status: Former smoker How long have you smoked: 49 Exposure to second hand smoke: No Drug Use: none Patient Lives Alone: No - Female History Hx Now: No - Nursing Vital Signs Nursing Vital Signs: Initial Vital Signs Temperature 98.2 F 01/14/21 10:58 Pulse Rate 58 L 01/14/21 10:58 Respiratory Rate 20 01/14/21 10:58 Blood Pressure 137/91 01/14/21 10:58 O2 Sat by Pulse Oximetry 92 L 01/14/21 10:58 Pain Scale Pain Intensity 0 - Physical Exam General Appearance: no apparent distress, alert Eye Exam: PERRL/EOMI, eyes nml inspection Ears, Nose, Throat Exam: normal ENT inspection, TMs normal, pharyngeal erythema Neck Exam: normal inspection, non-tender, supple, carotid bruit Respiratory Exam: airway intact, wheezing (Minimal wheezing), No respiratory distress, No accessory muscle use, No crackles/rales Cardiovascular Exam: regular rate/rhythm, normal heart sounds Gastrointestinal/Abdomen Exam: soft, normal bowel sounds, tenderness (Right flank and right lower quadrant with no rebound tenderness.) Back Exam: normal inspection, normal range of motion Extremity Exam: normal inspection, normal range of motion, pelvis stable Neurologic Exam: alert, oriented x 3, cooperative Skin Exam: normal color SpO2 Interpretation: normal SpO2: 92 O2 Delivery: Room Air - Course EKG Interpreted by Me: RATE (60), Sinus Rhythm, NORMAL AXIS, NORMAL INTERVALS, Non-specific ST Changes Ordered Tests: Active Orders 24 hr Category Date Time Status IV Insertion STAT Care 01/14/21 11:25 Completed NPO (ED) STAT Care 01/14/21 11:25 Completed ABDOMEN AND PELVIS W CONTRAST [CT] Stat Exams 01/14/21 11:27 Completed CHEST 1 VIEW (PORTABLE) Stat Exams 01/14/21 11:27 Completed AMYLASE Stat Lab 01/14/21 11:45 Completed CBC W DIFF Stat Lab 01/14/21 11:45 Completed CMP Stat Lab 01/14/21 11:45 Completed LIPASE Stat Lab 01/14/21 11:45 Completed TROPONIN Q3H Lab 01/14/21 13:00 Completed UA W/RFX UR CULTURE Stat Lab 01/14/21 12:47 Completed Respiratory Therapy Assessment DAILY RT 01/14/21 13:35 Completed Medication Summary Discontinued Medications Generic Name Dose Route Start Last Admin Trade Name Freq PRN Reason Stop Dose Admin Albuterol Sulfate 2.5 mg 01/14/21 12:51 01/14/21 13:35 Proventil 2.5 Mg/3 Ml Neb IH 01/14/21 12:52 2.5 mg STAT ONE Administration Albuterol Sulfate Confirm 01/14/21 13:23 Proventil 2.5 Mg/3 Ml Neb Administered 01/14/21 13:24 Dose 2.5 mg IH .STK-MED ONE Calcium Gluconate 1,000 mg 01/14/21 12:51 01/14/21 13:22 Calcium Gluconate 10% 1000 Mg IV 01/14/21 12:52 1,000 mg STAT ONE Administration Calcium Gluconate Confirm 01/14/21 13:16 Calcium Gluconate 10% 1000 Mg Administered 01/14/21 13:17 Dose 1,000 mg IV .STK-MED ONE Dextrose 50 ml 01/14/21 12:51 01/14/21 13:20 D50w 50 Ml Abboject IV 01/14/21 12:52 50 ml STAT ONE Administration Dextrose Confirm 01/14/21 13:19 D50w 50 Ml Abboject Administered 01/14/21 13:20 Dose 50 ml IV .STK-MED ONE Sodium Chloride 1,000 mls @ 999 mls/hr 01/14/21 11:25 01/14/21 12:49 Sodium Chloride 0.9% 1000 Ml IV 01/14/21 12:25 Infused .Q1H1M STA Infusion Sodium Chloride Confirm 01/14/21 11:41 Sodium Chloride 0.9% 1000 Ml Administered 01/14/21 11:42 Dose 1,000 mls @ ud .ROUTE .STK-MED ONE Sodium Chloride 1,000 mls @ 125 mls/hr 01/14/21 13:00 01/14/21 13:20 Sodium Chloride 0.9% 1000 Ml IV 02/13/21 12:59 125 mls/hr .Q8H JIGAR Administration Sodium Chloride 1,000 mls @ 999 mls/hr 01/14/21 13:54 Sodium Chloride 0.9% 1000 Ml IV 01/14/21 14:54 .Q1H1M STA Sodium Chloride Confirm 01/14/21 13:19 Sodium Chloride 0.9% 1000 Ml Administered 01/14/21 13:20 Dose 1,000 mls @ ud .ROUTE .STK-MED ONE Insulin Human Regular 10 unit 01/14/21 12:51 01/14/21 13:21 Humulin R IV 01/14/21 12:52 10 unit STAT ONE Administration Insulin Human Regular Confirm 01/14/21 13:17 Humulin R Administered 01/14/21 13:18 Dose 10 unit .ROUTE .STK-MED ONE Morphine Sulfate 4 mg 01/14/21 11:25 01/14/21 11:49 Morphine Sulfate 4 Mg Inj IV 01/14/21 11:26 4 mg STAT ONE Administration Morphine Sulfate Confirm 01/14/21 11:41 Morphine Sulfate 4 Mg Inj Administered 01/14/21 11:42 Dose 4 mg .ROUTE .STK-MED ONE Ondansetron HCl 4 mg 01/14/21 11:25 01/14/21 11:49 Zofran 4 Mg/2 Ml Vial IV 01/14/21 11:26 4 mg STAT ONE Administration Ondansetron HCl Confirm 01/14/21 11:41 Zofran 4 Mg/2 Ml Vial Administered 01/14/21 11:42 Dose 4 mg .ROUTE .STK-MED ONE Patiromer 8.4 gm 01/14/21 13:33 01/14/21 13:35 Veltassa PO 01/14/21 13:34 8.4 gm STAT STA Administration Patiromer Confirm 01/14/21 13:31 Veltassa Administered 01/14/21 13:32 Dose 8.4 gm PO .STK-MED ONE Sodium Bicarbonate 50 meq 01/14/21 12:51 01/14/21 13:24 Sodium Bicarbonate 50 Meq/50 Ml Abboject IV 01/14/21 12:52 50 meq STAT ONE Administration Sodium Bicarbonate Confirm 01/14/21 13:18 Sodium Bicarbonate 50 Meq/50 Ml Vial Administered 01/14/21 13:19 Dose 50 meq .ROUTE .STK-MED ONE Sodium Bicarbonate Confirm 01/14/21 13:24 Sodium Bicarbonate 50 Meq/50 Ml Abboject Administered 01/14/21 13:25 Dose 50 meq IV .STK-MED ONE Sodium Polystyrene Sulfonate 30 g 01/14/21 12:51 01/14/21 13:32 Kayexylate 15 Gm/60 Ml PO 01/14/21 12:52 Not Given STAT ONE Sodium Polystyrene Sulfonate Confirm 01/14/21 13:18 Kayexylate 15 Gm/60 Ml Administered 01/14/21 13:19 Dose 30 g .ROUTE .STK-MED ONE Lab/Rad Data: Laboratory Result Diagrams 01/14/21 11:45 01/14/21 11:45 Laboratory Results 01/14/21 01/14/2101/14/21 Range/Units 13:00 12:47 11:45 WBC (4.0-10.5) K/mm3 RBC (4.1-5.4) M/mm3 Hgb (12.0-16.0) gm/dl Hct (35-47) % MCV (78-100) fl MCH (26-32) pg MCHC (32-36) g/dl RDW (11.5-14.0) % Plt Count (150-450) K/mm3 MPV (7.5-11.0) fl Gran % (36.0-66.0) % Eos # (Auto) (0-0.5) Absolute Lymphs (auto) (1.0-4.6) Absolute Monos (auto) (0.0-1.3) Lymphocytes % (24.0-44.0) % Monocytes % (0.0-12.0) % Eosinophils % (0.00-5.0) % Basophils % (0.0-0.4) % Absolute Granulocytes (1.4-6.9) Basophils # (0-0.4) Sodium 136 L (137-145) mmol/L Potassium 6.0 H* (3.5-5.1) mmol/L Chloride 100 (98-107) mmol/L Carbon Dioxide 27 (22-30) mmol/L Anion Gap 14.9 (5-15) MEQ/L BUN 68 H (7-17) mg/dL Creatinine 2.61 H (0.52-1.04) mg/dL Estimated GFR 19.8 ML/MIN Glucose 97 (74-106) mg/dL Calcium 10.0 (8.4-10.2) mg/dL Total Bilirubin 0.50 (0.2-1.3) mg/dL AST 27 (14-36) U/L ALT 27 (0-35) U/L Alkaline Phosphatase 91 (38-126) U/L Troponin I < 0.012 (0.000-0.034) ng/mL Serum Total Protein 7.7 (6.3-8.2) g/dL Albumin 4.4 (3.5-5.0) g/dL Amylase 82 (30-110) U/L Lipase 52 (23-300) U/L Urine Color YELLOW (YELLOW) Urine Appearance CLEAR (CLEAR) Urine pH 5.0 (5-6) Ur Specific [place] 1.040 (1.005-1.025) Urine Protein NEGATIVE (Negative) Urine Ketones NEGATIVE (NEGATIVE) Urine Blood NEGATIVE (0-5) Cedrick/ul Urine Nitrite NEGATIVE (NEGATIVE) Urine Bilirubin NEGATIVE (NEGATIVE) Urine Urobilinogen NEGATIVE (0-1) mg/dL Ur Leukocyte Esterase NEGATIVE (NEGATIVE) Urine WBC (Auto) 0-2 (0-5) /HPF Urine RBC (Auto) NONE (0-2) /HPF U Epithel Cells (Auto) RARE (FEW) /HPF Urine Bacteria (Auto) NONE SEEN (NEGATIVE) /HPF Urine Mucus (Auto) SLIGHT (NEGATIVE) /HPF Urine Culture Reflexed NO (NO) Urine Glucose 50 (NEGATIVE) mg/dL 01/14/21 Range/Units 11:45 WBC 14.9 H (4.0-10.5) K/mm3 RBC 5.42 H (4.1-5.4) M/mm3 Hgb 15.7 (12.0-16.0) gm/dl Hct 50.3 H (35-47) % MCV 92.8 (78-100) fl MCH 29.0 (26-32) pg MCHC 31.2 L (32-36) g/dl RDW 15.5 H (11.5-14.0) % Plt Count 338 (150-450) K/mm3 MPV 10.0 (7.5-11.0) fl Gran % 79.6 H (36.0-66.0) % Eos # (Auto) 0 (0-0.5) Absolute Lymphs (auto) 2.34 (1.0-4.6) Absolute Monos (auto) 0.68 (0.0-1.3) Lymphocytes % 15.7 L (24.0-44.0) % Monocytes % 4.6 (0.0-12.0) % Eosinophils % 0.0 (0.00-5.0) % Basophils % 0.1 (0.0-0.4) % Absolute Granulocytes 11.85 H (1.4-6.9) Basophils # 0.01 (0-0.4) Sodium (137-145) mmol/L Potassium (3.5-5.1) mmol/L Chloride (98-107) mmol/L Carbon Dioxide (22-30) mmol/L Anion Gap (5-15) MEQ/L BUN (7-17) mg/dL Creatinine (0.52-1.04) mg/dL Estimated GFR ML/MIN Glucose (74-106) mg/dL Calcium (8.4-10.2) mg/dL Total Bilirubin (0.2-1.3) mg/dL AST (14-36) U/L ALT (0-35) U/L Alkaline Phosphatase (38-126) U/L Troponin I (0.000-0.034) ng/mL Serum Total Protein (6.3-8.2) g/dL Albumin (3.5-5.0) g/dL Amylase (30-110) U/L Lipase (23-300) U/L Urine Color (YELLOW) Urine Appearance (CLEAR) Urine pH (5-6) Ur Specific [place] (1.005-1.025) Urine Protein (Negative) Urine Ketones (NEGATIVE) Urine Blood (0-5) Cedrick/ul Urine Nitrite (NEGATIVE) Urine Bilirubin (NEGATIVE) Urine Urobilinogen (0-1) mg/dL Ur Leukocyte Esterase (NEGATIVE) Urine WBC (Auto) (0-5) /HPF Urine RBC (Auto) (0-2) /HPF U Epithel Cells (Auto) (FEW) /HPF Urine Bacteria (Auto) (NEGATIVE) /HPF Urine Mucus (Auto) (NEGATIVE) /HPF Urine Culture Reflexed (NO) Urine Glucose (NEGATIVE) mg/dL - Progress Progress: improved, re-examined Progress Note: 01/14/21 13:55 60 years old is evaluated for abdominal pain with nausea with some cough and wheezing. She is given fluid bolus. Work-up showed white count of 14.9 and chemistry profile acute renal failure with baseline normal renal functions and today BUN of 68 and creatinine of 2.61. She has a potassium of 6.0, which I believe is secondary to renal failure and fluid will help but have given her hyperkalemia meds per protocol with dextrose/insulin/albuterol/calcium gluconate/bicarb and Veltassa. EKG did not show any acute changes. Negative troponins. I have ordered CT abdomen pelvis with contrast which radiology has done without having kidney functions resulted and it did show some gas bubble in the bladder which could be iatrogenic versus gas-forming bacteria. Patient does not have any suprapubic area tenderness. Denies any urinary symptoms. She does not urinated despite giving her fluid bolus. She is given another fluid bolus which hopefully will help some with acute renal failure from Bactrim intake/decreased oral intake/contrast related injury as well. We will continue to monitor renal functions. I have discussed with Dr. Marquez, reviewed history, work-up and risk for contrast related renal injury, recommended transfer to facility with nephrology services. I do agree with him. I have discussed with Dr. Gibbons, reviewed history work-up and current management, agreed with transfer. Plan discussed with patient and also about accidental injection of IV contrast despite having renal failure who understands and agrees with it. Discussed with Dr.: Elodia, Other (Edwige RAUSCH [facility] ER physician) Counseled pt/family regarding: lab results, diagnosis, rad results - Departure Departure Disposition: Transfer Clinical Impression: Hyperkalemia Acute renal failure Qualifiers: Acute renal failure type: unspecified Qualified Code(s): N17.9 - Acute kidney failure, unspecified Condition: Stable Critical Care Time: Yes Critical Care Time(excluding separately billable procedures): Critical 30-74 mins Referrals: TOBIAS MARQUEZ [Primary Care Provider] -
[2021-01-14 11:55] LABS: Absolute Neutrophil Ct (ANC) 11.85 (1.4-6.9); BASOPHIL % 0.1 % (0.0-0.4); Basophil (Absolute #) 0.01 (0-0.4); Eosinophil (Absolute #) 0 (0-0.5); Hematocrit 50.3 % (35-47); Hemoglobin 15.7 gm/dl (12.0-16.0); Lymphocyte (Absolute #) 2.34 (1.0-4.6); Lymphocytes % 15.7 % (24.0-44.0); Mean Cell Volume 92.8 fl (78-100); Mean Corpuscular Hgb Concent. 31.2 g/dl (32-36); Monocyte (Absolute #) 0.68 (0.0-1.3); Monocytes % 4.6 % (0.0-12.0); Neutrophil % 79.6 % (36.0-66.0); Platelet Count 338 K/mm3 (150-450); Red Blood Count 5.42 M/mm3 (4.1-5.4); Red Cell Distribution Width 15.5 % (11.5-14.0); White Blood Count 14.9 K/mm3 (4.0-10.5)
[2021-01-14 12:15] LABS: ALBUMIN 4.4 g/dL (3.5-5.0); ANION GAP 14.9 MEQ/L (5-15); BILIRUBIN,TOTAL 0.5 mg/dL (0.2-1.3); Creatinine 1 2.61 mg/dL (0.52-1.04); EST GLOMERULAR FILTRATION RATE 19.8 ML/MIN; Total Protein 7.7 g/dL (6.3-8.2)
--- NOTE | 2021-01-14 12:45 | XRAY ---
Indication: Nausea, vomiting, and right abdomen pain. UTI. Multiple contiguous axial images obtained through the abdomen and pelvis using 80 cc Isovue 370 contrast. Comparison: January 10, 2019. Lung bases remain clear. Heart not enlarged. Stable small hiatal hernia. Noncontrasted stomach and bowel loops remain nonobstructed with normal appendix. There is again mild diffuse scattered colonic fecal debris throughout, less than before. Stable sigmoid diverticulosis without diverticulitis. Stable 1.8 cm right renal cyst and cholecystectomy clips. No free fluid/air. Urinary bladder demonstrates new intraluminal air bubble either iatrogenic from recent catheterization versus gas-forming bacterial infection. Remaining liver, pancreas, spleen, adrenal glands, kidneys, ureters, bladder, and aorta are unremarkable. No pathologic retroperitoneal lymphadenopathy. Osseous structures intact. Stable small fatty umbilical hernia. Impression: 1. New urinary bladder intraluminal air bubble either iatrogenic versus gas-forming bacterial infection. 2. Diffuse fecal stasis less than before. 3. Again incidental small hiatal hernia, right renal cyst, sigmoid diverticulosis, and fatty umbilical hernia.
--- NOTE | 2021-01-14 12:47 | XRAY ---
Indication: Cough. COPD. Comparison: September 14, 2019. Portable apical lordotic chest remains hyperinflated and clear again with a few tiny calcified granulomas. Heart not enlarged. Bony thorax intact again with mild osteopenia. Impression: Continued nonacute hyperinflated chest with chronic features.
[2021-01-14] MEDS ORDERED: Calcium Gluconate 10% 1000 MG IV ONE ×2 (12:51→13:16)
[2021-01-14] MEDS ORDERED: PROVENTIL 2.5 MG/3 ML NEB IH ONE ×2 (12:51→13:23)
[2021-01-14] MEDS ORDERED: SODIUM BICARBONATE 50 MEQ/50 ML ABBOJECT IV ONE ×2 (12:51→13:24)
[2021-01-14] MEDS ORDERED: HUMULIN R IV ONE (12:51)
[2021-01-14] MEDS ORDERED: D50W 50 ml Abboject IV ONE ×2 (12:51→13:19)
[2021-01-14] MEDS ORDERED: Sodium Chloride 0.9% 1000 ML 1,000 ML IV SCH (13:00)
[2021-01-14 13:07] VITALS: BP 131/86
[2021-01-14] MEDS ORDERED: HUMULIN R ONE (13:17)
[2021-01-14] MEDS ORDERED: Sodium Bicarbonate 50 MEQ/50 ML VIAL ONE (13:18)
[2021-01-14] MEDS ORDERED: Kayexylate 15 GM/60 ML ONE (13:18)
[2021-01-14] MEDS: Kayexylate 15 GM/60 ML PO ONE ×2 (13:21→13:32)
[2021-01-14] MEDS ORDERED: VELTASSA PO ONE (13:31)
[2021-01-14] MEDS ORDERED: VELTASSA PO STA (13:33)
[2021-01-14 13:38] VITALS: PULSE 58; O2SAT 92
[2021-01-14 14:39] LABS: Appearance CLEAR (CLEAR); Bilirubin NEGATIVE (NEGATIVE); Blood NEGATIVE Ery/ul (0-5); Epithelial Cells RARE /HPF (FEW); Glucose 50 mg/dL (NEGATIVE); Ketones NEGATIVE (NEGATIVE); Leukocyte Esterase NEGATIVE (NEGATIVE); Mucus SLIGHT /HPF (NEGATIVE); Nitrite NEGATIVE (NEGATIVE); Protein,Urine Dip NEGATIVE (Negative); Urobilinogen NEGATIVE mg/dL (0-1); WBC 0-2 /HPF (0-5)
[2021-01-14 14:42] LABS: Bacteria NONE SEEN /HPF (NEGATIVE)
== END 2021-01-14 14:46 | disposition short-term general hospital (02) ==
LOC: ED 10:38
DX: R10.31 Right lower quadrant pain (principal); E87.5 Hyperkalemia; N17.9 Acute kidney failure, unspecified; R19.7 Diarrhea, unspecified; Z79.899 Other long term (current) drug therapy; R11.2 Nausea with vomiting, unspecified; R53.1 Weakness
CPT/HCPCS: 36000; 36415; 71045; 74177; 80053; 81001; 82150; 83690; 84484; 85025; 94640; 96360; 96361; 96374; 96375; 99285; 99291; J0610; J1815; J2270; J2405; J7609; A9270-GY

== ENCOUNTER 2021-01-15 17:00 | Emergency (ER) | payer MEDICARE ==
[2021-01-15] MEDS ORDERED: Zofran 4 MG/2 ML VIAL IV ONE (17:50)
[2021-01-15] MEDS ORDERED: Sodium Chloride 0.9% 1000 ML 1,000 ML IV STA ×2 (17:50→19:15)
[2021-01-15] MEDS ORDERED: Sodium Chloride 0.9% 1000 ML 1,000 ML ONE ×2 (17:50→19:33)
[2021-01-15] MEDS ORDERED: Zofran 4 MG/2 ML VIAL ONE (17:50)
[2021-01-15 18:11] LABS: Absolute Neutrophil Ct (ANC) 12.64 (1.4-6.9); Basophil (Absolute #) 0 (0-0.4); Eosinophil (Absolute #) 0 (0-0.5); Hematocrit 45.9 % (35-47); Hemoglobin 14.1 gm/dl (12.0-16.0); Lymphocyte (Absolute #) 1.02 (1.0-4.6); Lymphocytes % 7.2 % (24.0-44.0); Mean Cell Volume 94.8 fl (78-100); Mean Corpuscular Hemoglobin 29.1 pg (26-32); Mean Corpuscular Hgb Concent. 30.7 g/dl (32-36); Monocyte (Absolute #) 0.51 (0.0-1.3); Monocytes % 3.6 % (0.0-12.0); Neutrophil % 89.2 % (36.0-66.0); Platelet Count 301 K/mm3 (150-450); Red Blood Count 4.84 M/mm3 (4.1-5.4); Red Cell Distribution Width 15.5 % (11.5-14.0); White Blood Count 14.2 K/mm3 (4.0-10.5)
[2021-01-15 18:23] LABS: Appearance SLIGHTLY CLOUDY (CLEAR); Bilirubin NEGATIVE (NEGATIVE); Blood NEGATIVE Ery/ul (0-5); Epithelial Cells RARE /HPF (FEW); Glucose 50 mg/dL (NEGATIVE); Ketones NEGATIVE (NEGATIVE); Leukocyte Esterase NEGATIVE (NEGATIVE); Mucus SLIGHT /HPF (NEGATIVE); Nitrite NEGATIVE (NEGATIVE); Protein,Urine Dip NEGATIVE (Negative); RBC NONE SEEN /HPF (0-2); Specific Gravity 1.024 (1.005-1.025); Urobilinogen NEGATIVE mg/dL (0-1); WBC 0-2 /HPF (0-5)
[2021-01-15 18:45] LABS: ALBUMIN 3.5 g/dL (3.5-5.0); ANION GAP 13.9 MEQ/L (5-15); BILIRUBIN,TOTAL 0.2 mg/dL (0.2-1.3); Calcium 9.3 mg/dL (8.4-10.2); Creatinine 1 1.28 mg/dL (0.52-1.04); EST GLOMERULAR FILTRATION RATE 45.1 ML/MIN; Potassium 5.6 mmol/L (3.5-5.1); Total Protein 6.3 g/dL (6.3-8.2)
--- NOTE | 2021-01-15 19:05 | ERPHSYRPT ---
- History of Present Illness Historian: patient Patient Subjective Stated Complaint: Pt was at this ER yesteday anf N&V and was transfered to [facility] due to acute kidney failure, pt got to [facility] and they took some blood and then released her stating that her labs were a little better, pt continues to have N&V, weakness and abdominal pain in the RLQ Triage Nursing Assessment: Pt brought to the ER by her daughter, hypertensive, rates pain 7/10 in her abdomen, tearful, pain to abdomen with palpatation, pulses normal, reports that she hasn't been having as many bowel movements as normal, N&V Physician History: 60 yo wf seen in ER yesterday for N/V and transferred to [facility] for DENICE but was discharged presents w RLQ pain/N/V. Pain is sharp and 5/10 presently. It has been up to a 7. She denies hematemesis/diarrhea/melena/hematochezia/dysuria/hematuria. Timing/Duration: week(s) (1wk) Quality: sharpness Abdominal Pain Onset Location: LLQ Pain Radiation: no radiation Severity of Pain-Max: moderate Severity of Pain-Current: moderate Modifying Factors: Improves With: nothing Associated Symptoms: No back, No chest pain, No diaphoresis, No diarrhea, No fev er/chills, No fatigue, No headache Previous symptoms: no prior history Allergies/Adverse Reactions: No Known Drug Allergies Allergy (Verified 01/15/21 17:42) Home Medications: Furosemide 60 mg PO DAILY 02/12/18 [History] Ibuprofen 200 mg [Motrin 200 mg] 200 mg PO QIDPRN PRN 02/12/18 [History] Naproxen 500 mg PO BID 02/12/18 [History] Potassium Chloride 10 Meq Tab* [Klor Con 10 MEQ] 10 meq PO DAILY 02/12/18 [History] Carvedilol 3.125 mg [Coreg 3.125 MG] 3.125 mg PO BID 01/15/21 [History] lisinopriL [Lisinopril] 10 mg PO DAILY 01/15/21 [History] Hx Tetanus, Diphtheria Vaccination/Date Given: Yes Hx Influenza Vaccination/Date Given: Yes Hx Pneumococcal Vaccination/Date Given: Yes Travel Risk - International Travel Have you traveled outside of the country in past 3 weeks: No - Coronavirus Screening Are you exhibiting any of the following symptoms?: No Close contact with a COVID-19 positive Pt in past 14-21 Days: No - Vaccine Status Have you recieved a Covid-19 vaccination: Yes [place] [employer]: Moderna - Vaccination Dates Date of 2cond Vaccination (if applicable): october 19 - Review of Systems Constitutional: No Symptoms Eyes: No Symptoms Ears, Nose, & Throat: No Symptoms Respiratory: No Symptoms, Cough Cardiac: No Symptoms Abdominal/Gastrointestinal: Abdominal Pain, Nausea, Vomiting, No Diarrhea, No Constipation, No Hematemesis, No Hematochezia, No Melena, No Dysphagia, No Appetite Changes Genitourinary Symptoms: No Symptoms Musculoskeletal: No Symptoms Skin: No Symptoms Neurological: No Symptoms Psychological: No Symptoms Endocrine: No Symptoms Hematologic/Lymphatic: No Symptoms Immunological/Allergic: No Symptoms - Past Medical History Pertinent Past Medical History: Yes Neurological History: Seizures ENT History: No Pertinent History Cardiac History: Hypertension, Peripheral Vascular Disease Respiratory History: Bronchitis Endocrine Medical History: No Pertinent History Musculoskeletal History: Osteoarthritis GI Medical History: GERD History: No Pertinent History Psycho-Social History: No Pertinent History Female Reproductive Disorders: No Pertinent History Other Medical History: HX ALSO FX RIGHT UPPER HUMERUS. - Past Surgical History Past Surgical History: Yes Neuro Surgical History: No Pertinent History Cardiac: No Pertinent History Respiratory: No Pertinent History Gastrointestinal: Cholecystectomy, Hernia Repair Genitourinary: No Pertinent History Musculoskeletal: No Pertinent History Female Surgical History: Tubal Ligation Other Surgical History: Varicose vein surgery - Social History Smoking Status: Former smoker How long have you smoked: 49 Exposure to second hand smoke: No Drug Use: none Patient Lives Alone: No Significant Family History: no pertinent family hx - Female History Hx Now: No - Nursing Vital Signs Nursing Vital Signs: Initial Vital Signs Temperature 98.0 F 01/15/21 17:33 Pulse Rate 68 01/15/21 17:33 Blood Pressure 161/87 01/15/21 17:33 O2 Sat by Pulse Oximetry 97 01/15/21 17:33 Pain Scale Pain Intensity 4 Hypertensive - Physical Exam General Appearance: no apparent distress Eye Exam: PERRL/EOMI, eyes nml inspection Ears, Nose, Throat Exam: normal ENT inspection, TMs normal, pharynx normal, moist mucous membranes Neck Exam: normal inspection, non-tender, supple, full range of motion, No meningismus, No mass, No Brudzinski, No Kernig's Respiratory Exam: airway intact, wheezing (Occ, but overall clear) Cardiovascular Exam: regular rate/rhythm, normal heart sounds, normal peripheral pulses, No murmur Gastrointestinal/Abdomen Exam: soft, normal bowel sounds, tenderness (Mild RLQ TTP wo guarding/rebound) Back Exam: normal inspection, normal range of motion Extremity Exam: pedal edema (Chronic, non-pitting) Neurologic Exam: alert, oriented x 3, cooperative, cma or lpn II-XII nml as tested, no rmal mood/affect, sensation nml Skin Exam: normal color, warm, dry Lymphatic Exam: No adenopathy SpO2 Interpretation: normal SpO2: 99 O2 Delivery: Room Air - Course Nursing assessment & vital signs reviewed: Yes - CT Exams Abdomen/Pelvis CT Interpretation: Tele-radiologist Report (NAD) Ordered Tests: Active Orders 24 hr Category Date Time Status IV Insertion STAT Care 01/15/21 18:14 Completed ABDOMEN AND PELVIS W/0 CONTRAS [CT] Stat Exams 01/15/21 19:14 Completed AMYLASE Stat Lab 01/15/21 18:07 Completed BMP Stat Lab 01/15/21 21:15 Completed CBC W DIFF Stat Lab 01/15/21 18:07 Completed CMP Stat Lab 01/15/21 18:07 Completed LIPASE Stat Lab 01/15/21 18:07 Completed TROPONIN Q3H Lab 01/15/21 18:07 Completed UA W/RFX UR CULTURE Stat Lab 01/15/21 17:50 Completed Medication Summary Discontinued Medications Generic Name Dose Route Start Last Admin Trade Name Amanda PRN Reason Stop Dose Admin Fentanyl Citrate 50 mcg 01/15/21 19:17 01/15/21 19:19 Sublimaze 100 Mcg/2 Ml IV 01/15/21 19:18 50 mcg STAT ONE Administration Fentanyl Citrate Confirm 01/15/21 19:18 Sublimaze 100 Mcg/2 Ml Administered 01/15/21 19:19 Dose 100 mcg .ROUTE .STK-MED ONE Sodium Chloride 1,000 mls @ 999 mls/hr 01/15/21 17:50 01/15/21 19:11 Sodium Chloride 0.9% 1000 Ml IV 01/15/21 18:50 Infused .Q1H1M STA Infusion Sodium Chloride Confirm 01/15/21 17:50 Sodium Chloride 0.9% 1000 Ml Administered 01/15/21 17:51 Dose 1,000 mls @ ud .ROUTE .STK-MED ONE Sodium Chloride 1,000 mls @ 999 mls/hr 01/15/21 19:15 01/15/21 20:57 Sodium Chloride 0.9% 1000 Ml IV 01/15/21 20:15 Infused .Q1H1M STA Infusion Sodium Chloride Confirm 01/15/21 19:33 Sodium Chloride 0.9% 1000 Ml Administered 01/15/21 19:34 Dose 1,000 mls @ ud .ROUTE .STK-MED ONE Ondansetron HCl 4 mg 01/15/21 17:50 01/15/21 17:51 Zofran 4 Mg/2 Ml Vial IV 01/15/21 17:51 4 mg STAT ONE Administration Ondansetron HCl Confirm 01/15/21 17:50 Zofran 4 Mg/2 Ml Vial Administered 01/15/21 17:51 Dose 4 mg .ROUTE .STK-MED ONE Lab/Rad Data: Laboratory Result Diagrams 01/15/21 18:07 01/15/21 21:15 Laboratory Results 01/15/21 01/15/21 01/15/21 Range/Units 21:15 18:07 18:07 WBC (4.0-10.5) K/mm3 RBC (4.1-5.4) M/mm3 Hgb (12.0-16.0) gm/dl Hct (35-47) % MCV (78-100) fl MCH (26-32) pg MCHC (32-36) g/dl RDW (11.5-14.0) % Plt Count (150-450) K/mm3 MPV (7.5-11.0) fl Gran % (36.0-66.0) % Eos # (Auto) (0-0.5) Absolute Lymphs (auto) (1.0-4.6) Absolute Monos (auto) (0.0-1.3) Lymphocytes % (24.0-44.0) % Monocytes % (0.0-12.0) % Eosinophils % (0.00-5.0) % Basophils % (0.0-0.4) % Absolute Granulocytes (1.4-6.9) Basophils # (0-0.4) Sodium 140 138 (137-145) mmol/L Potassium 5.3 H 5.6 H (3.5-5.1) mmol/L Chloride 105 105 (98-107) mmol/L Carbon Dioxide 27 25 (22-30) mmol/L Anion Gap 13.5 13.9 (5-15) MEQ/L BUN 48 H 49 H (7-17) mg/dL Creatinine 1.12 H 1.28 H (0.52-1.04) mg/dL Estimated GFR 52.6 45.1 ML/MIN Glucose 97 110 H (74-106) mg/dL Calcium 8.6 9.3 (8.4-10.2) mg/dL Total Bilirubin 0.20 (0.2-1.3) mg/dL AST 25 (14-36) U/L ALT 24 (0-35) U/L Alkaline Phosphatase 87 (38-126) U/L Troponin I < 0.012 (0.000-0.034) ng/mL Serum Total Protein 6.3 (6.3-8.2) g/dL Albumin 3.5 (3.5-5.0) g/dL Amylase 84 (30-110) U/L Lipase 84 (23-300) U/L Urine Color (YELLOW) Urine Appearance (CLEAR) Urine pH (5-6) Ur Specific [place] (1.005-1.025) Urine Protein (Negative) Urine Ketones (NEGATIVE) Urine Blood (0-5) [place]/ul Urine Nitrite (NEGATIVE) Urine Bilirubin (NEGATIVE) Urine Urobilinogen (0-1) mg/dL Ur Leukocyte Esterase (NEGATIVE) Urine WBC (Auto) (0-5) /HPF Urine RBC (Auto) (0-2) /HPF U Epithel Cells (Auto) (FEW) /HPF Urine Bacteria (Auto) (NEGATIVE) /HPF Urine Mucus (Auto) (NEGATIVE) /HPF Urine Culture Reflexed (NO) Urine Glucose (NEGATIVE) mg/dL 01/15/21 01/15/21 Range/Units 18:07 17:50 WBC 14.2 H (4.0-10.5) K/mm3 RBC 4.84 (4.1-5.4) M/mm3 Hgb 14.1 (12.0-16.0) gm/dl Hct 45.9 (35-47) % MCV 94.8 (78-100) fl MCH 29.1 (26-32) pg MCHC 30.7 L (32-36) g/dl RDW 15.5 H (11.5-14.0) % Plt Count 301 (150-450) K/mm3 MPV 10.0 (7.5-11.0) fl Gran % 89.2 H (36.0-66.0) % Eos # (Auto) 0 (0-0.5) Absolute Lymphs (auto) 1.02 (1.0-4.6) Absolute Monos (auto) 0.51 (0.0-1.3) Lymphocytes % 7.2 L (24.0-44.0) % Monocytes % 3.6 (0.0-12.0) % Eosinophils % 0.0 (0.00-5.0) % Basophils % 0.0 (0.0-0.4) % Absolute Granulocytes 12.64 H (1.4-6.9) Basophils # 0 (0-0.4) Sodium (137-145) mmol/L Potassium (3.5-5.1) mmol/L Chloride (98-107) mmol/L Carbon Dioxide (22-30) mmol/L Anion Gap (5-15) MEQ/L BUN (7-17) mg/dL Creatinine (0.52-1.04) mg/dL Estimated GFR ML/MIN Glucose (74-106) mg/dL Calcium (8.4-10.2) mg/dL Total Bilirubin (0.2-1.3) mg/dL AST (14-36) U/L ALT (0-35) U/L Alkaline Phosphatase (38-126) U/L Troponin I (0.000-0.034) ng/mL Serum Total Protein (6.3-8.2) g/dL Albumin (3.5-5.0) g/dL Amylase (30-110) U/L Lipase (23-300) U/L Urine Color YELLOW (YELLOW) Urine Appearance SLIGHTLY CLOUDY (CLEAR) Urine pH 5.0 (5-6) Ur Specific [place] 1.024 (1.005-1.025) Urine Protein NEGATIVE (Negative) Urine Ketones NEGATIVE (NEGATIVE) Urine Blood NEGATIVE (0-5) [place]/ul Urine Nitrite NEGATIVE (NEGATIVE) Urine Bilirubin NEGATIVE (NEGATIVE) Urine Urobilinogen NEGATIVE (0-1) mg/dL Ur Leukocyte Esterase NEGATIVE (NEGATIVE) Urine WBC (Auto) 0-2 (0-5) /HPF Urine RBC (Auto) NONE SEEN (0-2) /HPF U Epithel Cells (Auto) RARE (FEW) /HPF Urine Bacteria (Auto) NONE (NEGATIVE) /HPF Urine Mucus (Auto) SLIGHT (NEGATIVE) /HPF Urine Culture Reflexed NO (NO) Urine Glucose 50 (NEGATIVE) mg/dL - Progress Progress: improved Progress Note: 01/15/21 20:57 2L NS bolus 4mg IV Zofran 50umg Iv Fentanyl 01/15/21 21:37 Potassium decreasing and Creatinine improving before discharge. Pt has appointment w stripper and printer next week 01/16/21 01:37 Counseled pt/family regarding: lab results, diagnosis, need for follow-up, rad results - Departure Departure Disposition: Home Clinical Impression: Abdominal pain, Hyperkalemia, Acute kidney failure Condition: Stable Critical Care Time: No Referrals: TOBIAS ROBERTSON [Primary Care Provider] - Instructions: Acute Abdomen (Belly Pain), Adult (DC), Nausea and Vomiting, Adult (DC) Additional Instructions: Zofran for nausea/vomiting Follow up with stripper and printer on Sunday Return to ER for increasing pain or temperature greater than 100.5 Prescriptions: Ondansetron ODT 4 MG [Zofran Odt 4 mg] 4 mg PO Q6H PRN PRN #10 tab.rapdis PRN Reason: Nausea/Vomiting
[2021-01-15] MEDS ORDERED: SUBLIMAZE 100 MCG/2 ML IV ONE (19:17)
[2021-01-15] MEDS ORDERED: SUBLIMAZE 100 MCG/2 ML ONE (19:18)
[2021-01-15 20:25] VITALS: PULSE 60
[2021-01-15 21:27] LABS: ANION GAP 13.5 MEQ/L (5-15); Calcium 8.6 mg/dL (8.4-10.2); Creatinine 1 1.12 mg/dL (0.52-1.04); EST GLOMERULAR FILTRATION RATE 52.6 ML/MIN; Potassium 5.3 mmol/L (3.5-5.1)
[2021-01-15 22:09] VITALS: BP 136/100
--- NOTE | 2021-01-15 22:34 | XRAY ---
Indication: Nausea and emesis. Renal failure. Multiple contiguous axial images obtained through the abdomen and pelvis without contrast. Comparison: January 14, 2021. Lung bases remain clear. Heart not enlarged. Stable small hiatal hernia. Noncontrasted stomach and bowel loops remain nonobstructed again with normal appendix. There is again mild diffuse colonic fecal debris, sigmoid diverticulosis, small right renal cyst, small fatty umbilical hernia. And cholecystectomy. No free fluid/air. Remaining liver, pancreas, spleen, adrenal glands, kidneys, ureters, bladder, and uterus unremarkable for noncontrast exam. Minimal aortic calcifications without AAA. Impression: No change compared to CT abdomen/pelvis 1 day earlier. Again fecal stasis, small hiatal hernia, right renal cyst, sigmoid diverticulosis, and fatty umbilical hernia. Comment: Preliminary interpretation was made by [facility]. No critical discrepancy.
[2021-01-16 01:37] VITALS: O2SAT 99
== END 2021-01-15 22:24 | disposition home or self-care (01) ==
LOC: ED 17:00
DX: R10.9 Unspecified abdominal pain (principal); R11.2 Nausea with vomiting, unspecified; Z79.899 Other long term (current) drug therapy; I10 Essential (primary) hypertension; E87.5 Hyperkalemia; N17.9 Acute kidney failure, unspecified
CPT/HCPCS: 36000; 36415; 74176; 80048; 80053; 81001; 82150; 83690; 84484; 85025; 96360; 96361; 96374; 96375; 99284; J2405; J3010

== ENCOUNTER 2021-01-22 20:50 | Emergency (ER) | payer MEDICARE ==
--- NOTE | 2021-01-22 21:01 | ERPHSYRPT ---
- History of Present Illness Time Seen by Provider: 01/22/21 21:01 Source: patient, family Exam Limitations: no limitations Physician History: This is a 60-year-old obese white female who has known history of some renal insufficiency, hypertension, seizure disorder, peripheral vascular disease, bronchitis, gastroesophageal reflux disease and lymphedema of her bilateral lower extremities and presents with complaints of worsening peripheral edema. She is on lisinopril, low-dose Lasix and carvedilol. Dr. Marquez is her primary care physician and they have been working with her to get some of this edema in her lower extremities resolved. However there is a balance between using her Lasix and the renal insufficiency. Patient states that her renal function is worsening and she has an appointment to see a head wood grinder (Dr. Kirkland) on 01/28/2021. Timing/Duration: week(s) (Condition is worsening over the last several weeks.) Severity: moderate Modifying Factors: Improves With: other (It is interfering with her daily activities of walking.) Associated Symptoms: denies symptoms Allergies/Adverse Reactions: No Known Drug Allergies Allergy (Verified 01/22/21 21:14) Home Medications: Furosemide 20 mg PO DAILY 02/12/18 [History] Ibuprofen 200 mg [Motrin 200 mg] 200 mg PO QIDPRN PRN 02/12/18 [History] Naproxen 500 mg PO BID 02/12/18 [History] Carvedilol 3.125 mg [Coreg 3.125 MG] 3.125 mg PO BID 01/15/21 [History] lisinopriL [Lisinopril] 10 mg PO DAILY 01/15/21 [History] Albuterol 2.5 mg/3 ml Neb [Proventil 2.5 mg/3 ml Neb] 1 amp IH Q4-6HPRN PRN 01/22/21 [History] Fluticasone Propion/Salmeterol [Fluticasone-Salmeterol 250-50] 1 blist IH BID 01/22/21 [History] Hydrocodone/Acetaminophen [Hydrocodone-Acetamin 5-325 mg] 1 mg PO Q4H PRN PRN 01/22/21 [History] Hx Tetanus, Diphtheria Vaccination/Date Given: Yes Hx Influenza Vaccination/Date Given: Yes Hx Pneumococcal Vaccination/Date Given: Yes Travel Risk - International Travel Have you traveled outside of the country in past 3 weeks: No - Coronavirus Screening Are you exhibiting any of the following symptoms?: No Close contact with a COVID-19 positive Pt in past 14-21 Days: No - Vaccine Status Have you recieved a Covid-19 vaccination: Yes Cider Maker: Moderna - Vaccination Dates Date of 2cond Vaccination (if applicable): october 19 - Review of Systems Constitutional: No Symptoms Eyes: No Symptoms Ears, Nose, & Throat: No Symptoms Respiratory: No Symptoms Cardiac: No Symptoms Abdominal/Gastrointestinal: No Symptoms Genitourinary Symptoms: No Symptoms Musculoskeletal: Other (swelling bilateral) Neurological: No Symptoms Psychological: No Symptoms Endocrine: No Symptoms Hematologic/Lymphatic: No Symptoms Immunological/Allergic: No Symptoms All Other Systems: Reviewed and Negative - Past Medical History Pertinent Past Medical History: Yes Neurological History: Seizures ENT History: No Pertinent History Cardiac History: Hypertension, Peripheral Vascular Disease Respiratory History: Bronchitis Endocrine Medical History: No Pertinent History Musculoskeletal History: Osteoarthritis GI Medical History: GERD History: No Pertinent History Psycho-Social History: No Pertinent History Female Reproductive Disorders: No Pertinent History Other Medical History: HX ALSO FX RIGHT UPPER HUMERUS. - Past Surgical History Past Surgical History: Yes Neuro Surgical History: No Pertinent History Cardiac: No Pertinent History Respiratory: No Pertinent History Gastrointestinal: Cholecystectomy, Hernia Repair Genitourinary: No Pertinent History Musculoskeletal: No Pertinent History Female Surgical History: Tubal Ligation Other Surgical History: Varicose vein surgery - Social History Smoking Status: Former smoker How long have you smoked: 49 Exposure to second hand smoke: No Drug Use: none Patient Lives Alone: No Significant Family History: no pertinent family hx - Nursing Vital Signs Nursing Vital Signs: Initial Vital Signs Temperature 98.5 F 01/22/21 21:13 Pulse Rate 99 H 01/22/21 21:13 Respiratory Rate 22 01/22/21 21:13 Blood Pressure 132/96 01/22/21 21:13 O2 Sat by Pulse Oximetry 98 01/22/21 21:13 Pain Scale Pain Intensity 0 - Physical Exam General Appearance: no apparent distress, alert, anxiety Eye Exam: PERRL/EOMI, eyes nml inspection Ears, Nose, Throat Exam: normal ENT inspection, moist mucous membranes Neck Exam: normal inspection, non-tender, supple, full range of motion Respiratory Exam: normal breath sounds, lungs clear, airway intact, No chest tenderness, No respiratory distress Cardiovascular Exam: regular rate/rhythm, normal heart sounds, normal peripheral pulses Gastrointestinal/Abdomen Exam: soft, normal bowel sounds, No tenderness Pelvic Exam: not done Rectal Exam: not done Back Exam: normal inspection, normal range of motion, CVA tenderness Extremity Exam: pedal edema, swelling, tenderness Neurologic Exam: alert, oriented x 3, cooperative, marine cargo surveyor II-XII nml as tested, normal mood/affect, nml cerebellar function, nml station & gait, sensation nml Skin Exam: normal color, warm, dry Lymphatic Exam: No adenopathy SpO2 Interpretation: normal O2 Delivery: Room Air - Course Nursing assessment & vital signs reviewed: Yes Ordered Tests: Active Orders 24 hr Category Date Time Status IV Insertion STAT Care 01/22/21 22:23 Active CBC W DIFF Stat Lab 01/22/21 22:53 Completed CMP Stat Lab 01/22/21 22:53 Completed Medication Summary Generic Name Dose Route Start Last Admin Trade Name Freq PRN Reason Stop Dose Admin Furosemide 40 mg 01/22/21 23:22 Lasix 40 Mg/4 Ml IV 01/22/21 23:23 STAT ONE Lab/Rad Data: Laboratory Result Diagrams 01/22/21 22:53 01/22/21 22:53 Laboratory Results 01/22/21 01/22/21 Range/Units 22:53 22:53 WBC 12.2 H (4.0-10.5) K/mm3 RBC 4.23 (4.1-5.4) M/mm3 Hgb 12.2 (12.0-16.0) gm/dl Hct 41.0 (35-47) % MCV 96.9 (78-100) fl MCH 28.8 (26-32) pg MCHC 29.8 L (32-36) g/dl RDW 16.0 H (11.5-14.0) % Plt Count 186 (150-450) K/mm3 MPV 10.5 (7.5-11.0) fl Gran % 89.6 H (36.0-66.0) % Eos # (Auto) 0.01 (0-0.5) Absolute Lymphs (auto) 0.78 L (1.0-4.6) Absolute Monos (auto) 0.48 (0.0-1.3) Lymphocytes % 6.4 L (24.0-44.0) % Monocytes % 3.9 (0.0-12.0) % Eosinophils % 0.1 (0.00-5.0) % Basophils % 0.0 (0.0-0.4) % Absolute Granulocytes 10.89 H (1.4-6.9) Basophils # 0 (0-0.4) Sodium 137 (137-145) mmol/L Potassium 4.9 (3.5-5.1) mmol/L Chloride 104 (98-107) mmol/L Carbon Dioxide 28 (22-30) mmol/L Anion Gap 9.9 (5-15) MEQ/L BUN 32 H (7-17) mg/dL Creatinine 0.69 (0.52-1.04) mg/dL Estimated GFR > 60.0 ML/MIN Glucose 103 (74-106) mg/dL Calcium 8.5 (8.4-10.2) mg/dL Total Bilirubin 0.50 (0.2-1.3) mg/dL AST 35 (14-36) U/L ALT 43 H (0-35) U/L Alkaline Phosphatase 75 (38-126) U/L Serum Total Protein 6.5 (6.3-8.2) g/dL Albumin 3.5 (3.5-5.0) g/dL - Progress Progress: improved, pain not gone completely, re-examined Counseled pt/family regarding: lab results, diagnosis, need for follow-up - Departure Departure Disposition: Home Clinical Impression: Lymphedema Condition: Stable Critical Care Time: No Referrals: TOBIAS MARQUEZ [Primary Care Provider] - Additional Instructions: Tomorrow, 01/23/2021, increase your Lasix dosing to 2 times a day. On 01/24/2021 call your prescribing doctor and your head wood grinder for further management and instructions.
[2021-01-22 21:14] VITALS: O2SAT 98
[2021-01-22 22:56] LABS: Absolute Neutrophil Ct (ANC) 10.89 (1.4-6.9); Basophil (Absolute #) 0 (0-0.4); Eosinophil % 0.1 % (0.00-5.0); Eosinophil (Absolute #) 0.01 (0-0.5); Hemoglobin 12.2 gm/dl (12.0-16.0); Lymphocyte (Absolute #) 0.78 (1.0-4.6); Lymphocytes % 6.4 % (24.0-44.0); Mean Cell Volume 96.9 fl (78-100); Mean Corpuscular Hemoglobin 28.8 pg (26-32); Mean Corpuscular Hgb Concent. 29.8 g/dl (32-36); Mean Platelet Volume 10.5 fl (7.5-11.0); Monocyte (Absolute #) 0.48 (0.0-1.3); Monocytes % 3.9 % (0.0-12.0); Neutrophil % 89.6 % (36.0-66.0); Platelet Count 186 K/mm3 (150-450); Red Blood Count 4.23 M/mm3 (4.1-5.4); White Blood Count 12.2 K/mm3 (4.0-10.5)
[2021-01-22 23:11] LABS: ALBUMIN 3.5 g/dL (3.5-5.0); ALKALINE PHOSPHATASE 75 U/L (38-126); ANION GAP 9.9 MEQ/L (5-15); BLOOD UREA NITROGEN 32 mg/dL (7-17); CHLORIDE 104 mmol/L (98-107); Calcium 8.5 mg/dL (8.4-10.2); Carbon Dioxide 28 mmol/L (22-30); Creatinine 1 0.69 mg/dL (0.52-1.04); EST GLOMERULAR FILTRATION RATE > 60.0 ML/MIN; Glucose 103 mg/dL (74-106); Potassium 4.9 mmol/L (3.5-5.1); SGOT/AST 35 U/L (14-36); SGPT/ALT 43 U/L (0-35); SODIUM 137 mmol/L (137-145); Total Protein 6.5 g/dL (6.3-8.2)
[2021-01-22] MEDS ORDERED: Lasix 40 MG/4 ML IV ONE (23:22)
[2021-01-22] MEDS ORDERED: Lasix 40 MG/4 ML ONE (23:28)
[2021-01-22 23:57] VITALS: BP 120/60; PULSE 76
== END 2021-01-22 23:57 | disposition home or self-care (01) ==
LOC: ED 20:50
DX: I89.0 Lymphedema, not elsewhere classified (principal); I10 Essential (primary) hypertension; Z79.899 Other long term (current) drug therapy
CPT/HCPCS: 36000; 36415; 80053; 85025; 96374; 99284; J1940

== ENCOUNTER 2021-02-05 11:45 | Observation (INO) | payer MEDICARE ==
[2021-02-05] MEDS ORDERED: Sodium Chloride 0.9% 1000 ML 1,000 ML IV SCH (12:30)
[2021-02-05] MEDS ORDERED: Sodium Chloride 0.9% 1000 ML 1,000 ML ONE (12:47)
[2021-02-05 13:45] LABS: Absolute Neutrophil Ct (ANC) 7.32 (1.4-6.9); BASOPHIL % 0.2 % (0.0-0.4); Basophil (Absolute #) 0.02 (0-0.4); Eosinophil % 2.1 % (0.00-5.0); Hematocrit 39.3 % (35-47); Hemoglobin 12.2 gm/dl (12.0-16.0); Lymphocyte (Absolute #) 1.42 (1.0-4.6); Lymphocytes % 14.9 % (24.0-44.0); Mean Cell Volume 95.4 fl (78-100); Mean Corpuscular Hemoglobin 29.6 pg (26-32); Monocyte (Absolute #) 0.54 (0.0-1.3); Monocytes % 5.7 % (0.0-12.0); Neutrophil % 77.1 % (36.0-66.0); Platelet Count 247 K/mm3 (150-450); Red Blood Count 4.12 M/mm3 (4.1-5.4); White Blood Count 9.5 K/mm3 (4.0-10.5)
[2021-02-05 13:54] LABS: INR 1.15 (0.8-3.0); PROTIME 13.6 SECONDS (9.4-12.5)
[2021-02-05 13:56] LABS: PTT 34.8 SECONDS (25.1-36.5)
[2021-02-05 13:59] LABS: ALBUMIN 4.1 g/dL (3.5-5.0); ALKALINE PHOSPHATASE 112 U/L (38-126); ANION GAP 14.3 MEQ/L (5-15); BLOOD UREA NITROGEN 15 mg/dL (7-17); CHLORIDE 97 mmol/L (98-107); Calcium 9.2 mg/dL (8.4-10.2); Carbon Dioxide 29 mmol/L (22-30); Creatinine 1 0.91 mg/dL (0.52-1.04); EST GLOMERULAR FILTRATION RATE > 60.0 ML/MIN; Glucose 96 mg/dL (74-106); SGOT/AST 30 U/L (14-36); SGPT/ALT 23 U/L (0-35); SODIUM 137 mmol/L (137-145); Total Protein 7.3 g/dL (6.3-8.2)
--- NOTE | 2021-02-05 14:25 | ERPHSYRPT ---
- History of Present Illness Time Seen by Provider: 02/05/21 12:25 Source: patient Exam Limitations: no limitations Patient Subjective Stated Complaint: Pt c/o of melody lower leg and feet pain due to cellulitis Triage Nursing Assessment: Pt brought to the ER by her , nichole wnl, rates pain 7/10 in BLE, melody lower calves are red and oozing and swollen, pt has worn the hospital socks since she was discharged at this hospital several weeks ago, right bottom foot is whitish/solis and looks "water-logged" Physician History: Patient is a 60-year-old white female who presents with a complaint of pain redness and swelling of both lower legs and feet. She recently was seen in the ER for transient renal failure creatinine went to greater than 2 however did come down to normal again she was diagnosed with cellulitis of both feet and the swelling has been bad since Sunday. 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 Marquez yesterday as well placed on a water pill. Which she has not gotten. Timing/Duration: day(s) (4) Quality: painful Severity: severe Location: feet (Both legs ankles and feet), extremities Possible Causes: no cause identified Associated Symptoms: fever, rash Allergies/Adverse Reactions: No Known Drug Allergies Allergy (Verified 02/05/21 12:21) Home Medications: Furosemide 40 mg PO QID 02/12/18 [History] Ibuprofen 200 mg [Motrin 200 mg] 200 mg PO QIDPRN PRN 02/12/18 [History] Naproxen 500 mg PO BID 02/12/18 [History] Carvedilol 3.125 mg [Coreg 3.125 MG] 3.125 mg PO BID 01/15/21 [History] lisinopriL [Lisinopril] 10 mg PO DAILY 01/15/21 [History] Albuterol 2.5 mg/3 ml Neb [Proventil 2.5 mg/3 ml Neb] 1 amp IH Q4-6HPRN PRN 01/22/21 [History] Fluticasone Propion/Salmeterol [Fluticasone-Salmeterol 250-50] 1 blist IH BID 01/22/21 [History] Cephalexin Mh 500 mg [Keflex 500 mg] 500 mg PO QID 02/05/21 [History] Oxycodone HCl/Acetaminophen [Oxycodone-Acetaminophen 5-325] 1 each PO BID 02/05/21 [History] Hx Tetanus, Diphtheria Vaccination/Date Given: Yes Hx Influenza Vaccination/Date Given: Yes Hx Pneumococcal Vaccination/Date Given: Yes Travel Risk - International Travel Have you traveled outside of the country in past 3 weeks: No - Coronavirus Screening Are you exhibiting any of the following symptoms?: No Close contact with a COVID-19 positive Pt in past 14-21 Days: No - Vaccine Status Have you recieved a Covid-19 vaccination: Yes 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: [employer] - Vaccination Dates Date of 2cond Vaccination (if applicable): october 19 - Review of Systems Constitutional: Fever, No Chills Eyes: No Symptoms Ears, Nose, & Throat: No Symptoms Respiratory: No Cough, No Dyspnea Cardiac: No Chest Pain, No Edema, No Syncope Abdominal/Gastrointestinal: No Abdominal Pain, No Nausea, No Vomiting, No Diarrhea Genitourinary Symptoms: No Dysuria Musculoskeletal: No Back Pain, No Neck Pain Skin: Cellulitis, No Rash Neurological: No Dizziness, No Focal Weakness, No Sensory Changes Psychological: No Symptoms Endocrine: No Symptoms All Other Systems: Reviewed and Negative - Past Medical History Pertinent Past Medical History: Yes Neurological History: Seizures ENT History: No Pertinent History Cardiac History: Hypertension, Peripheral Vascular Disease Respiratory History: Bronchitis Endocrine Medical History: No Pertinent History Musculoskeletal History: Osteoarthritis GI Medical History: GERD History: No Pertinent History Psycho-Social History: No Pertinent History Female Reproductive Disorders: No Pertinent History Other Medical History: HX ALSO FX RIGHT UPPER HUMERUS. - Past Surgical History Past Surgical History: Yes Neuro Surgical History: No Pertinent History Cardiac: No Pertinent History Respiratory: No Pertinent History Gastrointestinal: Cholecystectomy, Hernia Repair Genitourinary: No Pertinent History Musculoskeletal: No Pertinent History Female Surgical History: Tubal Ligation Other Surgical History: Varicose vein surgery - Social History Smoking Status: Former smoker How long have you smoked: 49 Exposure to second hand smoke: No Drug Use: none Patient Lives Alone: No Significant Family History: no pertinent family hx - Female History Hx Now: No - Nursing Vital Signs Nursing Vital Signs: Initial Vital Signs Temperature 99.0 F 02/05/21 12:10 Pulse Rate 95 H 02/05/21 12:10 Blood Pressure 125/88 02/05/21 12:10 O2 Sat by Pulse Oximetry 99 02/05/21 12:10 Pain Scale Pain Intensity 6 - Physical Exam General Appearance: mild distress, alert Eye Exam: PERRL/EOMI, eyes nml inspection Ears, Nose, Throat Exam: normal ENT inspection, pharynx normal, moist mucous membranes Neck Exam: normal inspection, non-tender, supple, full range of motion Respiratory Exam: normal breath sounds, lungs clear, No respiratory distress Cardiovascular Exam: regular rate/rhythm, normal heart sounds Gastrointestinal/Abdomen Exam: soft, mass, No tenderness Back Exam: normal inspection, normal range of motion, No CVA tenderness, No vertebral tenderness Extremity Exam: inflammation, swelling, tenderness, other (Being from both legs marked edema and erythema) Neurologic Exam: alert, oriented x 3, cooperative, normal mood/affect, sensation nml, No motor deficits Skin Exam: normal color, warm, dry SpO2: 95 - Course Nursing assessment & vital signs reviewed: Yes - Radiology Exams Chest X-ray Interpretation: Interpreted by me, Negative Ordered Tests: Active Orders 24 hr Category Date Time Status IV Insertion STAT Care 02/05/21 12:23 Active CHEST 1 VIEW (PORTABLE) Stat Exams 02/05/21 12:27 Taken BLOOD CULTURE Stat Lab 02/05/21 13:47 Received CBC W DIFF Stat Lab 02/05/21 12:23 Completed CMP Stat Lab 02/05/21 13:47 Completed CULTURE,URINE Stat Lab 02/05/21 12:28 Ordered CULTURE,WOUND Stat Lab 02/05/21 12:36 Ordered Lactic Acid Stat Lab 02/05/21 12:23 Completed MAGNESIUM Stat Lab 02/05/21 13:47 Received NT PRO BNP Stat Lab 02/05/21 13:47 Received PROTIME WITH INR Stat Lab 02/05/21 13:47 Completed PTT Stat Lab 02/05/21 13:47 Completed TROPONIN Q3H Lab 02/05/21 13:47 Received TROPONIN Q3H Lab 02/05/21 15:30 Ordered TROPONIN Q3H Lab 02/05/21 18:30 Ordered TROPONIN Q3H Lab 02/05/21 21:30 Ordered TROPONIN Q3H Lab 02/06/21 00:30 Ordered UA W/RFX UR CULTURE Stat Lab 02/05/21 12:27 Ordered Medication Summary Generic Name Dose Route Start Last Admin Trade Name Amanda PRN Reason Stop Dose Admin Sodium Chloride 1,000 mls @ 100 mls/hr 02/05/21 12:30 02/05/21 12:49 Sodium Chloride 0.9% 1000 Ml IV 03/07/21 12:29 100 mls/hr .Q10H JIGAR Administration Lab/Rad Data: Laboratory Result Diagrams 02/05/21 12:23 02/05/21 13:47 Laboratory Results 02/05/21 02/05/21 02/05/21 Range/Units 13:47 13:47 12:23 WBC (4.0-10.5) K/mm3 RBC (4.1-5.4) M/mm3 Hgb (12.0-16.0) gm/dl Hct (35-47) % MCV (78-100) fl MCH (26-32) pg MCHC (32-36) g/dl RDW (11.5-14.0) % Plt Count (150-450) K/mm3 MPV (7.5-11.0) fl Gran % (36.0-66.0) % Eos # (Auto) (0-0.5) Absolute Lymphs (auto) (1.0-4.6) Absolute Monos (auto) (0.0-1.3) Lymphocytes % (24.0-44.0) % Monocytes % (0.0-12.0) % Eosinophils % (0.00-5.0) % Basophils % (0.0-0.4) % Absolute Granulocytes (1.4-6.9) Basophils # (0-0.4) PT 13.6 H (9.4-12.5) SECONDS INR 1.15 (0.8-3.0) APTT 34.8 (25.1-36.5) SECONDS Sodium 137 (137-145) mmol/L Potassium 4.0 (3.5-5.1) mmol/L Chloride 97 L (98-107) mmol/L Carbon Dioxide 29 (22-30) mmol/L Anion Gap 14.3 (5-15) MEQ/L BUN 15 (7-17) mg/dL Creatinine 0.91 (0.52-1.04) mg/dL Estimated GFR > 60.0 ML/MIN Glucose 96 (74-106) mg/dL Lactic Acid 0.8 (0.4-2.0) Calcium 9.2 (8.4-10.2) mg/dL Total Bilirubin 0.60 (0.2-1.3) mg/dL AST 30 (14-36) U/L ALT 23 (0-35) U/L Alkaline Phosphatase 112 (38-126) U/L Serum Total Protein 7.3 (6.3-8.2) g/dL Albumin 4.1 (3.5-5.0) g/dL 02/05/21 Range/Units 12:23 WBC 9.5 (4.0-10.5) K/mm3 RBC 4.12 (4.1-5.4) M/mm3 Hgb 12.2 (12.0-16.0) gm/dl Hct 39.3 (35-47) % MCV 95.4 (78-100) fl MCH 29.6 (26-32) pg MCHC 31.0 L (32-36) g/dl RDW 16.0 H (11.5-14.0) % Plt Count 247 (150-450) K/mm3 MPV 10.0 (7.5-11.0) fl Gran % 77.1 H (36.0-66.0) % Eos # (Auto) 0.20 (0-0.5) Absolute Lymphs (auto) 1.42 (1.0-4.6) Absolute Monos (auto) 0.54 (0.0-1.3) Lymphocytes % 14.9 L (24.0-44.0) % Monocytes % 5.7 (0.0-12.0) % Eosinophils % 2.1 (0.00-5.0) % Basophils % 0.2 (0.0-0.4) % Absolute Granulocytes 7.32 H (1.4-6.9) Basophils # 0.02 (0-0.4) PT (9.4-12.5) SECONDS INR (0.8-3.0) APTT (25.1-36.5) SECONDS Sodium (137-145) mmol/L Potassium (3.5-5.1) mmol/L Chloride (98-107) mmol/L Carbon Dioxide (22-30) mmol/L Anion Gap (5-15) MEQ/L BUN (7-17) mg/dL Creatinine (0.52-1.04) mg/dL Estimated GFR ML/MIN Glucose (74-106) mg/dL Lactic Acid (0.4-2.0) Calcium (8.4-10.2) mg/dL Total Bilirubin (0.2-1.3) mg/dL AST (14-36) U/L ALT (0-35) U/L Alkaline Phosphatase (38-126) U/L Serum Total Protein (6.3-8.2) g/dL Albumin (3.5-5.0) g/dL - Progress Progress: unchanged Discussed with : Elodia Will see patient in: hospital (full admit) - Departure Departure Disposition: In-patient Admission Clinical Impression: Cellulitis Condition: Fair Critical Care Time: No Referrals: TOBIAS MARQUEZ [Primary Care Provider] -
[2021-02-05] MEDS ORDERED: Zofran 4 MG/2 ML VIAL IV PRN (14:27)
[2021-02-05] MEDS: TYLENOL 325 MG PO PRN (16:48)
[2021-02-05] MEDS ORDERED: PHARMACY DOSING REQUIRED: VANCOMYCIN IV STA (18:13)
[2021-02-05] MEDS ORDERED: PHARMACY DOSING REQUEST MC ONE ×2 (18:14→23:11)
[2021-02-05] MEDS: Lasix 40 MG/4 ML IV SCH (18:26)
[2021-02-05] MEDS ORDERED: Sodium Chloride 100ML MINI-BAG PLUS 100 ML IV ONE ×2 (18:29→23:16)
[2021-02-05] MEDS ORDERED: Zosyn 3.375 GM Vial IV ONE ×2 (18:29→23:15)
[2021-02-05] MEDS: Zosyn 3.375 GM Vial 3.375 GM in Sodium Chloride 100ML MINI-BAG PLUS 100 ML IV SCH ×2 (18:32→23:24)
--- NOTE | 2021-02-05 19:22 | XRAY ---
Indication: Weakness, fatigue, short of breath. Comparison: January 14, 2021. Portable chest unchanged again hyperinflated and clear with a few incidental tiny calcified granulomas. Heart not enlarged. Bony thorax intact again with mild osteopenia. No new/acute findings.
[2021-02-05 19:54] LABS: Appearance CLEAR (CLEAR); Bacteria NONE SEEN /HPF (NEGATIVE); Bilirubin NEGATIVE (NEGATIVE); Blood NEGATIVE Ery/ul (0-5); Epithelial Cells RARE /HPF (FEW); Glucose NEGATIVE (NEGATIVE); Hyaline Casts 0-2 /LPF (0-2); Ketones SMALL (NEGATIVE); Leukocyte Esterase TRACE (NEGATIVE); Mucus SLIGHT /HPF (NEGATIVE); Nitrite NEGATIVE (NEGATIVE); Protein,Urine Dip NEGATIVE (Negative); Urobilinogen 2 mg/dL (0-1)
[2021-02-05] MEDS: PERCOCET TABLET 5/325MG PO PRN (19:57)
[2021-02-05] MEDS ORDERED: VANCOMYCIN 1.5 GRAM/300 ML BAG 1.5 GM/300 ML PIGGYBACK IV SCH (20:00)
[2021-02-05] MEDS ORDERED: PROVENTIL 2.5 MG/3 ML NEB IH PRN (20:33)
[2021-02-05] MEDS ORDERED: ENOXAPARIN SODIUM SQ ONE ×2 (21:32→23:09)
[2021-02-05] MEDS: Coreg 3.125 MG PO SCH (21:35)
[2021-02-05] MEDS ORDERED: ENOXAPARIN SODIUM SQ SCH (22:00)
[2021-02-05] MEDS ORDERED: WIXELA 500-50 INHUB IH SCH (22:00)
[2021-02-06] MEDS ORDERED: Sodium Chloride 0.9% 100 ML BAG 100 ML ONE (06:12)
[2021-02-06] MEDS ORDERED: Zosyn 3.375 GM Vial IV ONE (06:13)
[2021-02-06] MEDS ORDERED: Sodium Chloride 100ML MINI-BAG PLUS 100 ML IV ONE (06:14)
[2021-02-06] MEDS: Lasix 40 MG/4 ML IV SCH ×2 (06:19→17:53)
[2021-02-06] MEDS: Zosyn 3.375 GM Vial 3.375 GM in Sodium Chloride 100ML MINI-BAG PLUS 100 ML IV SCH ×3 (06:20→17:53)
--- NOTE | 2021-02-06 06:29 | XRAY ---
Indication: Fluid overload. Lymphedema. Multiple contiguous axial images obtained through the abdomen and pelvis using 100 cc Isovue 370 contrast and PE protocol. Comparison: January 15, 2021 CT chest reported separately. Noncontrasted stomach and bowel loops nonobstructed. Remains normal appendix, sigmoid diverticulosis, tiny right renal cysts, cholecystectomy, and small fatty umbilical hernia. No free fluid/air. Remaining liver, pancreas, spleen, adrenal glands, kidneys, ureters, bladder, uterus, and aorta are unremarkable. No pathologic retroperitoneal lymphadenopathy. Impression: 1. Stable right renal cysts, sigmoid diverticulosis, and fatty umbilical hernia. 2. Remaining CT abdomen/pelvis with contrast exam is negative. Comment: Preliminary interpretation made by [facility]. No critical discrepancy.
--- NOTE | 2021-02-06 06:32 | XRAY ---
Indication: Fluid overload. Lymphedema. Elevated d-dimer. Multiple contiguous axial images obtained through the chest using 100 cc Isovue 370 contrast and PE protocol. Comparison: None There is adequate opacification of the pulmonary arteries to include the lobar and segmental branches. Very tiny nonoccluding pulmonary emboli in the posterior segment of the right upper lobe. No other pulmonary embolus. Heart not enlarged. Aorta is normal in course and caliber. No pathologic mediastinal/hilar lymphadenopathy. Small hiatal hernia. Lungs are hyperinflated and clear. Bony thorax intact with mild osteopenia. CT abdomen/pelvis reported separately. Impression: 1. Very tiny nonoccluding right upper lobe pulmonary emboli. 2. Small hiatal hernia. Comment: Preliminary interpretation made by [facility]. No critical discrepancy.
[2021-02-06] MEDS: PROVENTIL 2.5 MG/3 ML NEB IH SCH ×4 (06:58→19:19)
[2021-02-06] MEDS: Advair Hfa 115/21 Common canister IH SCH ×2 (07:01→19:19)
[2021-02-06 07:04] LABS: Absolute Neutrophil Ct (ANC) 6.17 (1.4-6.9); BASOPHIL % 0.2 % (0.0-0.4); Basophil (Absolute #) 0.02 (0-0.4); Eosinophil % 1.9 % (0.00-5.0); Eosinophil (Absolute #) 0.16 (0-0.5); Hematocrit 35.4 % (35-47); Hemoglobin 10.9 gm/dl (12.0-16.0); Lymphocyte (Absolute #) 1.58 (1.0-4.6); Lymphocytes % 18.5 % (24.0-44.0); Mean Cell Volume 95.7 fl (78-100); Mean Corpuscular Hemoglobin 29.5 pg (26-32); Mean Corpuscular Hgb Concent. 30.8 g/dl (32-36); Mean Platelet Volume 10.5 fl (7.5-11.0); Monocyte (Absolute #) 0.62 (0.0-1.3); Monocytes % 7.3 % (0.0-12.0); Neutrophil % 72.1 % (36.0-66.0); Platelet Count 266 K/mm3 (150-450); Red Cell Distribution Width 16.2 % (11.5-14.0); White Blood Count 8.6 K/mm3 (4.0-10.5)
[2021-02-06 07:07] LABS: ALBUMIN 3.4 g/dL (3.5-5.0); ALKALINE PHOSPHATASE 88 U/L (38-126); ANION GAP 11.8 MEQ/L (5-15); BLOOD UREA NITROGEN 18 mg/dL (7-17); CHLORIDE 98 mmol/L (98-107); Calcium 8.7 mg/dL (8.4-10.2); Carbon Dioxide 29 mmol/L (22-30); Creatinine 1 0.96 mg/dL (0.52-1.04); EST GLOMERULAR FILTRATION RATE > 60.0 ML/MIN; Glucose 107 mg/dL (74-106); Potassium 3.7 mmol/L (3.5-5.1); SGOT/AST 25 U/L (14-36); SGPT/ALT 20 U/L (0-35); SODIUM 135 mmol/L (137-145); Total Protein 6.3 g/dL (6.3-8.2)
[2021-02-06] MEDS: PERCOCET TABLET 5/325MG PO PRN ×2 (07:55→15:06)
[2021-02-06] MEDS ORDERED: ZOFRAN ODT 4 MG PO PRN (08:05)
[2021-02-06] MEDS: Coreg 3.125 MG PO SCH ×2 (09:17→21:07)
[2021-02-06] MEDS: ENOXAPARIN SODIUM SQ SCH ×2 (09:17→21:07)
[2021-02-06] MEDS: VANCOMYCIN 1.25 GM/250 ML BAG 1.25 GM/250 ML PIGGYBACK IV SCH ×2 (09:42→21:15)
[2021-02-06] MEDS ORDERED: Bactroban OINTMENT TP SCH (10:00)
[2021-02-06] MEDS ORDERED: Zestril 10 MG PO SCH (10:00)
[2021-02-06] MEDS ORDERED: BACIGUENT 30 GM TOP SCH (11:00)
[2021-02-06] MEDS ORDERED: Zosyn 3.375 GM Vial 3.375 GM in Sodium Chloride 100ML MINI-BAG PLUS 100 ML IV SCH (20:00)
--- NOTE | 2021-02-06 21:28 | XRAY ---
Indication: Bilateral leg swelling. Two-dimensional sonogram and color Doppler imaging of the major venous vessels of the left and right leg performed. Comparison: January 26, 2021. Proximal left femoral vein demonstrates new nonoccluding thrombus. No other thrombus seen in the examined deep venous vessels of the left and right leg including greater saphenous vein. Patent veins demonstrate normal compressibility. Venous waveforms are normal with and without augmentation. Impression: 1. New nonoccluding DVT proximal left femoral vein. 2. Right leg remains negative for DVT. Comment: Preliminary report given.
[2021-02-07] MEDS: Zosyn 3.375 GM Vial 3.375 GM in Sodium Chloride 100ML MINI-BAG PLUS 100 ML IV SCH ×4 (00:15→18:22)
[2021-02-07] MEDS: Lasix 40 MG/4 ML IV SCH ×2 (06:25→18:22)
[2021-02-07 06:27] LABS: Hematocrit 35.9 % (35-47); Hemoglobin 10.9 gm/dl (12.0-16.0); Mean Cell Volume 96.5 fl (78-100); Mean Corpuscular Hemoglobin 29.3 pg (26-32); Mean Corpuscular Hgb Concent. 30.4 g/dl (32-36); Mean Platelet Volume 10.4 fl (7.5-11.0); Platelet Count 262 K/mm3 (150-450); Red Blood Count 3.72 M/mm3 (4.1-5.4); Red Cell Distribution Width 16.4 % (11.5-14.0); White Blood Count 8.9 K/mm3 (4.0-10.5)
[2021-02-07] MEDS: PROVENTIL 2.5 MG/3 ML NEB IH SCH ×4 (06:45→19:40)
[2021-02-07 06:47] LABS: ALBUMIN 2.9 g/dL (3.5-5.0); ANION GAP 11.5 MEQ/L (5-15); BILIRUBIN,TOTAL 0.2 mg/dL (0.2-1.3); Calcium 8.3 mg/dL (8.4-10.2); Creatinine 1 1.02 mg/dL (0.52-1.04); EST GLOMERULAR FILTRATION RATE 58.6 ML/MIN; Potassium 3.5 mmol/L (3.5-5.1); Total Protein 5.3 g/dL (6.3-8.2)
[2021-02-07] MEDS: Advair Hfa 115/21 Common canister IH SCH ×2 (06:49→19:40)
[2021-02-07] MEDS ORDERED: PHARMACY DOSING REQUEST MC ONE (07:35)
[2021-02-07] MEDS: PERCOCET TABLET 5/325MG PO PRN ×2 (08:10→14:27)
[2021-02-07 08:14] LABS: BAND 1 % (0.0-2.0); Eosinophil 2 % (0.00-3.0); Lymphocytes 31 % (24-44); Neutrophils 66 % (36.0-66.0); Total Cells Counted 100
[2021-02-07 08:15] LABS: Platelet Estimate NORMAL (NORMAL)
[2021-02-07] MEDS: ELIQUIS 2.5 MG TABLET PO SCH ×2 (10:26→21:09)
[2021-02-07] MEDS: VANCOMYCIN 1.25 GM/250 ML BAG 1.25 GM/250 ML PIGGYBACK IV SCH ×2 (10:27→21:10)
[2021-02-07] MEDS: Coreg 3.125 MG PO SCH ×2 (10:28→21:09)
--- NOTE | 2021-02-07 14:13 | HP ---
CHIEF COMPLAINT: Leg swelling and pain. HISTORY OF PRESENT ILLNESS: The patient is a 60 year-old white female who had been seen as an outpatient for lower leg edema and what appeared to be some cellulitis. She had been placed initially on Keflex and did not improve. We added Bactrim. The patient was also given Lasix 40 mg t.i.d. and the patient did not respond to this in fact may be even getting a little worse. She presented herself to the emergency room and was admitted to the hospital for further evaluation and management. PAST MEDICAL/SURGICAL HISTORY: Previously the patient has had blood clots in her legs. Previously she has had varicose vein surgery. She had cholecystectomy and hernia repair. She has osteoarthritis and gastroesophageal reflux disease, hypertension, peripheral vascular disease. MEDICATIONS: Her current home medication list includes: Albuterol PRN for chronic obstructive pulmonary disease exacerbation. Carvedilol 3.125 mg twice a day, Keflex 500 mg four times a day. She takes Fluticasone/Salmeterol inhaler, Lasix 40 mg b.i.d. which has been increased to three times a day at home recently. Lisinopril 10 mg a day, Zofran PRN nausea. She gets oxycodone 5/325 PRN for pain and recent addition of Bactrim DS twice a day as well. ALLERGIES: NKDA. PHYSICAL EXAMINATION: The patient's vital signs on admission showed her temperature to be 99.0F, pulse 95, blood pressure 125/88, respiratory rate 16. O2 saturation 99% on room air. HEENT: Normocephalic, atraumatic. Pupils equal round reactive to light. Extraocular movements intact. Oropharynx is pink and moist. NECK: Supple without lymphadenopathy, thyromegaly or JVD. CHEST: Clear to auscultation. HEART: Regular rate and rhythm, without murmurs, rubs or gallops. ABDOMEN: Soft. No palpable masses. EXTREMITIES: Revealed 3 to 4+ edema and percy appearance of both lower extremities. There is also now developing blisters over the top of her feet. Otherwise the patient had no cyanosis or clubbing. NEUROLOGIC: She patient is alert and oriented x3 with no focal deficits noted. LAB DATA AND TESTS: Laboratory studies in the emergency room showed: Troponin less than 0.012. ProBNP was normal at 480. Magnesium 2.0, lactic acid 0.8. Hemoglobin 12.2, white count 9,500, PLT count 247,000. Metabolic panel was essentially completely normal with a glucose of 96, BUN 15, creatinine 0.91. Her INR was 1.15. COVID test was negative. D-dimer was elevated at 3447. Procalcitonin 0.066. UA was essentially normal. Second lactic acid was 0.7. The patient due to the other D-dimer had a CT scan of the chest to rule out pulmonary embolism protocol which did not show obstructing right upper lobe pulmonary embolus and tiny nonoccluding emboli otherwise noted as well. She had CT scan of abdomen and pelvis which were essentially unremarkable. ASSESSMENT: A patient with chronic lymphedema and history of deep vein thrombosis and now pulmonary embolism has been admitted to the hospital on subcu Lovenox treatments initially. She is in here also for Lasix 40 mg IV every 12 hours to help decompress her lower extremities. She will receive physical therapy evaluation and treatment of the lower extremity wounds and she has been placed on IV antibiotics for the treatment of what appears to be the cellulitis.
[2021-02-08] MEDS ORDERED: Sodium Chloride 0.9% 1000 ML 1,000 ML ONE (01:16)
[2021-02-08] MEDS: Zosyn 3.375 GM Vial 3.375 GM in Sodium Chloride 100ML MINI-BAG PLUS 100 ML IV SCH ×2 (01:16→06:07)
[2021-02-08] MEDS: TYLENOL 325 MG PO PRN (01:17)
[2021-02-08 05:48] LABS: Hematocrit 34.1 % (35-47); Hemoglobin 10.3 gm/dl (12.0-16.0); Mean Cell Volume 97.2 fl (78-100); Mean Corpuscular Hemoglobin 29.3 pg (26-32); Mean Corpuscular Hgb Concent. 30.2 g/dl (32-36); Mean Platelet Volume 10.4 fl (7.5-11.0); Platelet Count 264 K/mm3 (150-450); Red Blood Count 3.51 M/mm3 (4.1-5.4); Red Cell Distribution Width 16.3 % (11.5-14.0); White Blood Count 7.5 K/mm3 (4.0-10.5)
[2021-02-08 05:55] LABS: ANION GAP 10.9 MEQ/L (5-15); BLOOD UREA NITROGEN 25 mg/dL (7-17); CHLORIDE 101 mmol/L (98-107); Calcium 8.6 mg/dL (8.4-10.2); Carbon Dioxide 28 mmol/L (22-30); Creatinine 1 0.81 mg/dL (0.52-1.04); EST GLOMERULAR FILTRATION RATE > 60.0 ML/MIN; Glucose 91 mg/dL (74-106); Potassium 3.6 mmol/L (3.5-5.1); SODIUM 137 mmol/L (137-145)
[2021-02-08] MEDS: Lasix 40 MG/4 ML IV SCH (06:07)
[2021-02-08] MEDS: PROVENTIL 2.5 MG/3 ML NEB IH SCH ×2 (06:32→10:42)
[2021-02-08] MEDS: Advair Hfa 115/21 Common canister IH SCH (06:32)
[2021-02-08 07:13] LABS: BAND 3 % (0.0-2.0); Basophil 1 % (0.0-1.0); Eosinophil 3 % (0.00-3.0); Lymphocytes 12 % (24-44); Monocyte 4 % (0.0-12.0); Neutrophils 77 % (36.0-66.0); Platelet Estimate NORMAL (NORMAL); Total Cells Counted 100
[2021-02-08 07:55] VITALS: BP 120/74
[2021-02-08] MEDS: PERCOCET TABLET 5/325MG PO PRN (08:44)
[2021-02-08] MEDS: Coreg 3.125 MG PO SCH (09:02)
[2021-02-08] MEDS: ELIQUIS 2.5 MG TABLET PO SCH (09:02)
[2021-02-08] MEDS ORDERED: TROUGH DRUG LEVELS IJ ONE (09:30)
[2021-02-08 10:47] VITALS: PULSE 70; O2SAT 94
--- NOTE | 2021-02-09 14:00 | DS ---
DISCHARGE DIAGNOSES: 1) CELLULITIS IN BILATERAL LOWER EXTREMITIES. 2) CHRONIC LYMPHEDEMA. 3) DEEP VEIN THROMBOSIS. 4) PULMONARY EMBOLISM. HISTORY: The patient is a 60 year-old white female who has gained a lot of weight over the past few months to year or so and now has chronic lymphedema in her lower extremities. We tried outpatient management with initially Keflex and increasing the Lasix. She was initially seen in acute care clinic. She followed up in my office and we changed her to Bactrim and increased her Lasix. However the patient continued to get worse and presented to the emergency room and was subsequently admitted to the hospital for further evaluation and management for the cellulitis and lower extremity edema. HOSPITAL COURSE: The patient was treated with IV Vancomycin and Zosyn during her stay. The redness did seem to improve on this therapy. She had wounds that had developed or there were blisters over the top of the feet. We engaged with physical therapy for evaluation of this and her legs are now wrapped with treatment. The patient did begin feeling better. She was changed from the IV Lasix to 40 mg twice a day with minimal improvement in the edema. However, the patient was definitely feeling better. She was also noted to be positive for deep vein thrombosis. She has a history of deep vein thrombosis of the legs and CT scan of the chest did show that she had an occlusion of the right upper segment of the right lung for which we started the patient on Lovenox treatments. At this time however will change her over to Eliquis when she goes home at 5 mg twice a day. We feel that she is able to go home at this point in time to continue to elevate the legs when she can above her heart. She will be taking Lasix 40 mg t.i.d. and will give Augmentin 875 twice a day for the cellulitis issues. We will see her in the office again later this week. She will continue to get rehab where she can her legs wrapped about every other day. If the patient feels that she is getting worse she is to return back to the hospital or call us at any time she should need for questions that she might have but at this time I feel the patient is safe to discharge home. The most recent laboratories did show the patient's white count to be 7,500, hemoglobin 10.3, PLT count was normal at 264,000. She did have 3 bands and 77 polyps however this is why we continued to the antibiotics. Her kidney functions remained good with a BUN high at 25 with creatinine 0.81. Electrolytes remained normal. The patient at this time will be discharged home with continue of her usual home medications and carvedilol 6.125 twice a day, Fluticasone-Salmeterol inhaler, lisinopril 10 mg a day and oxycodone 5/325 every 4 hours PRN pain.
== END 2021-02-08 11:10 | disposition home or self-care (01) ==
LOC: ED 11:45 → MED SURG 16:25 → INTOOBSV 16:25
PROVIDERS: ADMIT Family Medicine; ATTEND Family Medicine
DX: L03.116 Cellulitis of left lower limb (principal); L03.115 Cellulitis of right lower limb; I26.99 Other pulmonary embolism without acute cor pulmonale; I89.0 Lymphedema, not elsewhere classified; I82.412 Acute embolism and thrombosis of left femoral vein; Z79.899 Other long term (current) drug therapy
CPT/HCPCS: 29581; 36000; 36415; 71045; 71260; 74178; 80048; 80053; 81001; 83605; 83735; 83880; 84145; 84484; 85025; 85379; 85610; 85730; 87040; 87070; 87077; 87086; 87186; 93970; 94640; 94760; 96360; 96361; 97161; 99285; G0378; U0003; J1650; J1940; J7609; A9270-GY; J3370

== ENCOUNTER 2021-02-18 08:51 | Emergency (ER) | payer MEDICARE ==
[2021-02-18 09:06] VITALS: BP 134/91; PULSE 77; O2SAT 100
--- NOTE | 2021-02-18 09:14 | ERPHSYRPT ---
- History of Present Illness Time Seen by Provider: 02/18/21 09:00 Source: patient, EMS Exam Limitations: no limitations Patient Subjective Stated Complaint: Back pain Triage Nursing Assessment: Patient brought into ED via EMS and transferred to be d with assist of 4. Patient A+O x3. patient's skin pink, warm and dry. Patient complains of left sided lower back pain into tail bone. Patient has hx of chronic back pain and sees pain dr. Patient complains of constant aching pain intermittent sharp pain 10/10 when ambulating. Patient denies recent trauma or injury to back. No visible injuries or bruising noted. Physician History: This is a 60-year-old obese white female patient of Dr. Robertson as well as metal temperer Dr. Kirkland, filling mixer Dr. Khanna, and pain specialist Dr. Kingsley, who presents with pain in her lower spine at the level of the lumbar region. Patient was seen yesterday at the pain clinic and given steroid injections per her report. When she got home she was told to lay down and keep her legs elevated. Today when she attempted to get up there was a sharp pain in that area and she is unable to move without sharp shooting pains in the lumbar spine region. Patient denies any acute trauma or acute injury. Patient is on Eliquis for a pulmonary embolus that was diagnosed relatively recently. Patient has a history of chronic back pain, hypertension, COPD, renal insufficiency, peripheral vascular disease, peripheral edema and gastroesophageal reflux disease. Patient has appointment to see Dr. Kingsley again next week on 02/22/2021. She has a prescription of Flexeril and oxycodone at home. They did not seem to be helping her. Patient denies urinary incontinence, patient denies loss of bowel control, patient denies numbness in her feet. She has no urinary tract infection symptoms. She denies chest pain. She denies shortness of breath. Timing/Duration: yesterday Method of Injury: other (No injury) Quality: sharp, stabbing Back Pain Location: lumbar spine Severity of Pain-Max: moderate Severity of Pain-Current: moderate Modifying Factors: Improves With: movement Associated Symptoms: lower back pain, muscle spasms, No urinary incontinence, No loss of bowel control, No numbness in legs/feet Previous symptoms: same symptoms as today, recently seen, recently treated Allergies/Adverse Reactions: No Known Drug Allergies Allergy (Verified 02/18/21 08:54) Home Medications: Carvedilol 3.125 mg [Coreg 3.125 MG] 3.125 mg PO BID 01/15/21 [History] lisinopriL [Lisinopril] 10 mg PO DAILY 01/15/21 [History] Albuterol 2.5 mg/3 ml Neb [Proventil 2.5 mg/3 ml Neb] 1 amp IH Q4-6HPRN PRN 01/22/21 [History] Fluticasone Propion/Salmeterol [Fluticasone-Salmeterol 250-50] 1 blist IH BID 01/22/21 [History] Oxycodone HCl/Acetaminophen [Oxycodone-Acetaminophen 5-325] 1 each PO BID 02/05/21 [History] Hx Tetanus, Diphtheria Vaccination/Date Given: Yes Hx Influenza Vaccination/Date Given: Yes Hx Pneumococcal Vaccination/Date Given: No Immunizations Up to Date: Yes Travel Risk - International Travel Have you traveled outside of the country in past 3 weeks: No - Coronavirus Screening Are you exhibiting any of the following symptoms?: No Close contact with a COVID-19 positive Pt in past 14-21 Days: No - Vaccine Status Have you recieved a Covid-19 vaccination: Yes Slash Trimmer: Unknown - Vaccination Dates Date of 2cond Vaccination (if applicable): 10/19/20 Dates if Unknown: september and october 2020 - Review of Systems Constitutional: No Symptoms Eyes: No Symptoms Ears, Nose, & Throat: No Symptoms Respiratory: No Symptoms Cardiac: No Symptoms Abdominal/Gastrointestinal: No Symptoms Genitourinary Symptoms: No Symptoms Musculoskeletal: Back Pain, No Fall, No Injury Skin: No Symptoms Neurological: No Symptoms Psychological: No Symptoms Endocrine: No Symptoms Hematologic/Lymphatic: No Symptoms Immunological/Allergic: No Symptoms All Other Systems: Reviewed and Negative - Past Medical History Pertinent Past Medical History: Yes Neurological History: Seizures ENT History: No Pertinent History Cardiac History: Deep Vein Thrombosis, Hypertension Respiratory History: Bronchitis Endocrine Medical History: No Pertinent History Musculoskeletal History: Fractures GI Medical History: GERD History: No Pertinent History Psycho-Social History: No Pertinent History Female Reproductive Disorders: No Pertinent History Other Medical History: PT. HAS SMOKING HX, GERD, R HUMERUS FX, CHOLCYSTECTOMY, TUBAL, HERNIA. - Past Surgical History Past Surgical History: Yes Neuro Surgical History: No Pertinent History Cardiac: No Pertinent History Respiratory: No Pertinent History Gastrointestinal: Cholecystectomy, Hernia Repair Genitourinary: No Pertinent History Musculoskeletal: No Pertinent History Female Surgical History: Tubal Ligation Other Surgical History: Varicose vein surgery - Social History Smoking Status: Former smoker How long have you smoked: 49 Exposure to second hand smoke: No Drug Use: none Patient Lives Alone: No Significant Family History: no pertinent family hx - Female History Hx Now: No - Nursing Vital Signs Nursing Vital Signs: Initial Vital Signs Temperature 97.7 F 02/18/21 08:55 Pulse Rate 77 02/18/21 08:55 Respiratory Rate 18 02/18/21 08:55 Blood Pressure 134/91 02/18/21 08:55 O2 Sat by Pulse Oximetry 100 02/18/21 08:55 Pain Scale Pain Intensity 10 - Physical Exam General Appearance: no apparent distress, alert, anxiety, obese Eye Exam: PERRL/EOMI, eyes nml inspection Ears, Nose, Throat Exam: normal ENT inspection, moist mucous membranes Neck Exam: normal inspection, non-tender, supple, full range of motion Respiratory Exam: normal breath sounds, lungs clear, airway intact, No chest tenderness, No respiratory distress Gastrointestinal Exam: No tenderness Pelvic Exam: not done Rectal Exam: not done Back Exam: vertebral tenderness (Lumbar spine region), decreased range of motion, muscle spasm (Bilateral paraspinous muscle at the level of the lumbar spine), No CVA tenderness Extremity Exam: normal inspection, normal range of motion, pelvis stable Neurologic Exam: alert, oriented x 3, cooperative, business services representative II-XII nml as tested Skin Exam: normal color, warm, dry Lymphatic Exam: No adenopathy SpO2 Interpretation: normal SpO2: 100 - Course Nursing assessment & vital signs reviewed: Yes Ordered Tests: Active Orders 24 hr Category Date Time Status LUMBAR SPINE W/O [CT] Stat Exams 02/18/21 09:15 Taken CULTURE,URINE Stat Lab 02/18/21 09:18 Received UA W/RFX UR CULTURE Stat Lab 02/18/21 09:18 Completed Medication Summary Discontinued Medications Generic Name Dose Route Start Last Admin Trade Name Freq PRN Reason Stop Dose Admin Ceftriaxone Sodium 1,000 mg 02/18/21 10:46 02/18/21 11:12 Rocephin 1000 Mg Inj IM 02/18/21 10:47 1,000 mg STAT ONE Administration Ceftriaxone Sodium Confirm 02/18/21 11:03 Rocephin 1000 Mg Inj Administered 02/18/21 11:04 Dose 1,000 mg .ROUTE .STK-MED ONE Hydromorphone HCl 1 mg 02/18/21 10:48 02/18/21 11:12 Hydromorphone 1 Mg/Ml Injection IM 02/18/21 10:49 1 mg STAT ONE Administration Hydromorphone HCl Confirm 02/18/21 11:03 Hydromorphone 1 Mg/Ml Injection Administered 02/18/21 11:04 Dose 1 mg .ROUTE .STK-MED ONE Lidocaine HCl Confirm 02/18/21 11:03 Xylocaine 1% Hcl 20 Ml Mdv Administered 02/18/21 11:04 Dose 2 ml .ROUTE .STK-MED ONE Ondansetron HCl 4 mg 02/18/21 10:48 02/18/21 11:13 Zofran Odt 4 Mg PO 02/18/21 10:49 4 mg STAT ONE Administration Ondansetron HCl Confirm 02/18/21 11:02 Zofran Odt 4 Mg Administered 02/18/21 11:03 Dose 4 mg .ROUTE .STK-MED ONE Orphenadrine Citrate 60 mg 02/18/21 10:49 02/18/21 11:12 Norflex 60 Mg/2 Ml IM 02/18/21 10:50 60 mg STAT ONE Administration Orphenadrine Citrate Confirm 02/18/21 11:02 Norflex 60 Mg/2 Ml Administered 02/18/21 11:03 Dose 60 mg .ROUTE .STK-MED ONE Lab/Rad Data: Laboratory Results 02/18/21 Range/Units 09:18 Urine Color BRENDAN (YELLOW) Urine Appearance SLIGHTLY CLOUDY (CLEAR) Urine pH 5.0 (5-6) Ur Specific [place] 1.031 (1.005-1.025) Urine Protein 30 (Negative) Urine Ketones TRACE (NEGATIVE) Urine Blood NEGATIVE (0-5) [place]/ul Urine Nitrite NEGATIVE (NEGATIVE) Urine Bilirubin NEGATIVE (NEGATIVE) Urine Urobilinogen 2 (0-1) mg/dL Ur Leukocyte Esterase MODERATE (NEGATIVE) Urine WBC (Auto) 51-100 (0-5) /HPF Urine RBC (Auto) 0-2 (0-2) /HPF U Epithel Cells (Auto) RARE (FEW) /HPF Urine Bacteria (Auto) RARE (NEGATIVE) /HPF Urine Mucus (Auto) SLIGHT (NEGATIVE) /HPF Urine Culture Reflexed YES (NO) Urine Glucose NEGATIVE (NEGATIVE) mg/dL - Progress Progress: improved, pain not gone completely, re-examined Progress Note: 02/18/21 11:24 I reviewed the lumbar spine films with Dr. Petersen our radiologist. He states that there is some sclerosis of region just medial to the left SI joint. There is no evidence of any acute fracture or subluxation of the lumbar spine. This was also present on the CAT scan of the lumbar spine on 02/05/2021. 02/18/21 11:25 Medical decision making: This patient will be sent home with a prescription for Norflex to be taken only twice a day. She is to stop taking her Flexeril (cyclobenzaprine). She is to make an appointment for follow-up with her pain specialist and with Dr. Robertson next week. Patient is already on oxycodone so I will not add any narcotic medication to her regimen. 02/18/21 11:32 Counseled pt/family regarding: diagnosis, need for follow-up, rad results - Departure Departure Disposition: Home Clinical Impression: Low back pain Condition: Stable Critical Care Time: No Referrals: TOBIAS ROBERTSON [Primary Care Provider] - Additional Instructions: Stop taking your Flexeril (cyclobenzaprine) medication. Only take your Norflex medication twice a day. Continue your oxycodone as prescribed. Call Dr. Robertson and your pain specialist today to make an appointment for early next week. Prescriptions: Orphenadrine Citrate 100 mg [Norflex 100 MG Tablet] 100 mg PO BID #8 tab MDD 2
[2021-02-18 09:29] LABS: Appearance SLIGHTLY CLOUDY (CLEAR); Bacteria RARE /HPF (NEGATIVE); Bilirubin NEGATIVE (NEGATIVE); Blood NEGATIVE Ery/ul (0-5); Epithelial Cells RARE /HPF (FEW); Glucose NEGATIVE (NEGATIVE); Ketones TRACE (NEGATIVE); Leukocyte Esterase MODERATE (NEGATIVE); Mucus SLIGHT /HPF (NEGATIVE); Nitrite NEGATIVE (NEGATIVE); Protein,Urine Dip 30 (Negative); RBC 0-2 /HPF (0-2); Specific Gravity 1.031 (1.005-1.025); Urobilinogen 2 mg/dL (0-1); WBC 51-100 /HPF (0-5)
[2021-02-18] MEDS ORDERED: Rocephin 1000 MG INJ IM ONE (10:46)
[2021-02-18] MEDS ORDERED: ZOFRAN ODT 4 MG PO ONE (10:48)
[2021-02-18] MEDS ORDERED: Hydromorphone 1 mg/ml Injection IM ONE (10:48)
[2021-02-18] MEDS ORDERED: Norflex 60 MG/2 ML IM ONE (10:49)
[2021-02-18] MEDS ORDERED: ZOFRAN ODT 4 MG ONE (11:02)
[2021-02-18] MEDS ORDERED: Norflex 60 MG/2 ML ONE (11:02)
[2021-02-18] MEDS ORDERED: XYLOCAINE 1% HCL 20 ML MDV ONE (11:03)
[2021-02-18] MEDS ORDERED: Hydromorphone 1 mg/ml Injection ONE (11:03)
[2021-02-18] MEDS ORDERED: Rocephin 1000 MG INJ ONE (11:03)
--- NOTE | 2021-02-18 11:33 | XRAY ---
Exam: CT of the lumbar spine without IV contrast from 02/18/2021. CTDI: 57.99 mGy Comparison: Five-view lumbar spine series from 08/31/2019. Indication: 60-year-old female with lumbar spine pain; status post injections. Technique: Non-IV Contrast axial images were obtained through the entire lumbar spine. Reconstructed coronal and sagittal images were created and reviewed. Findings: I see no acute fracture, spondylolisthesis, or spondylolysis. The vertebral body heights are well-maintained. No findings of central canal spinal stenosis are seen. The disc heights are fairly well-preserved. There appears to be mild diffuse annular bulging of the L5-S1 disc on the sagittal images. A definite focal disc herniation is not seen on the axial images. The remainder of the lumbar discs reveal no significant abnormality. The neural foramen are patent bilaterally throughout the lumbar spine. There is mild bilateral L5-S1 facet joint arthropathy, right greater than left. Some vacuum phenomena is seen on the right. There is also minimal vacuum phenomena seen within both sacroiliac joints. Surgical clips consistent with prior cholecystectomy are seen. There is minimal vascular calcification within the distal abdominal aorta and right common iliac artery. Moderate sigmoid colon diverticulosis is partially seen. I note some mild curvilinear sclerosis within the lateral aspect of the left side of the sacrum. I do not see a definite fracture line. However, in the appropriate clinical setting, an insufficiency fracture should be considered. For example, see coronal image #54. Impression: 1. No acute lumbar spine fracture, spondylolisthesis, or spondylolysis is seen. There is some curvilinear sclerosis within the left side of the sacrum, best seen on the coronal images. Although a definite fracture line is not seen, in the appropriate clinical setting, an insufficiency fracture should be considered. This curvilinear sclerotic density is seen on a CT study of the abdomen/pelvis from 02/05/2021 in retrospect. Interestingly, this is not seen on a CT study of the abdomen/pelvis from 01/15/2021. Correlate clinically as to point tenderness. This was discussed with Dr. Mcclain, emergency department physician, at approximately 11:15 AM on 02/18/2021. 2. Mild diffuse annular bulging of the L5-S1 disc is seen without focal disc herniation or central canal stenosis. The other lumbar discs appear essentially unremarkable. 3. Mild bilateral facet joint arthropathy is seen at L5-S1, right greater than left. 4. The sigmoid colon is partially included on this study and reveals moderate diverticulosis.
== END 2021-02-18 12:06 | disposition home or self-care (01) ==
LOC: ED 08:51
DX: M54.5 Low back pain (principal); I10 Essential (primary) hypertension; J44.9 Chronic obstructive pulmonary disease, unspecified; Z79.899 Other long term (current) drug therapy
CPT/HCPCS: 72131; 81001; 87086; 96372; 99284; J0696; J1170; J2360; Q0162

== ENCOUNTER 2021-02-18 22:58 | Observation (INO) | payer MEDICARE ==
--- NOTE | 2021-02-18 23:10 | ERPHSYRPT ---
- History of Present Illness Time Seen by Provider: 02/18/21 23:05 Source: patient, EMS Exam Limitations: no limitations Physician History: This is a 60-year-old obese white female patient of Dr. Marquez who has chronic low back pain, hypertension, COPD, renal insufficiency, peripheral vascular disease and peripheral edema chronically and presents with significant lumbar pain. Patient was seen by her pain specialist on 02/17/2021. She received steroid injections and nonsteroidal anti-inflammatory injection. This morning, she was having acute pain in her lower back. Patient presents to the emergency department here 12 hours ago approximately and denies any injury/trauma. Patient underwent a CAT scan of the lumbar spine which showed no acute fractures but chronic changes present. Her urinalysis was free of infection. Patient was sent home and told to take her oxycodone and Norflex replaced her Flexeril. Patient returns to the emergency department here approximately 12 hours after discharge from this emergency department with intractable back pain. She has not had any new falls or trauma since her discharge to home 12 hours ago Timing/Duration: today Method of Injury: other Quality: sharp ([place]) Back Pain Location: lumbar spine Back Pain Radiation: buttocks Severity of Pain-Max: moderate Severity of Pain-Current: moderate Modifying Factors: Improves With: movement Associated Symptoms: denies symptoms, lower back pain, muscle spasms, No fever, No urinary incontinence, No loss of bowel control, No numbness in legs/feet, No tingling in legs/feet Previous symptoms: same symptoms as today, recently seen, recently treated Allergies/Adverse Reactions: No Known Drug Allergies Allergy (Verified 02/18/21 08:54) Home Medications: Carvedilol 3.125 mg [Coreg 3.125 MG] 3.125 mg PO BID 01/15/21 [History] lisinopriL [Lisinopril] 10 mg PO DAILY 01/15/21 [History] Albuterol 2.5 mg/3 ml Neb [Proventil 2.5 mg/3 ml Neb] 1 amp IH Q4-6HPRN PRN 01/22/21 [History] Fluticasone Propion/Salmeterol [Fluticasone-Salmeterol 250-50] 1 blist IH BID 01/22/21 [History] Oxycodone HCl/Acetaminophen [Oxycodone-Acetaminophen 5-325] 1 each PO BID 02/05/21 [History] Hx Tetanus, Diphtheria Vaccination/Date Given: Yes Hx Influenza Vaccination/Date Given: Yes Hx Pneumococcal Vaccination/Date Given: No Travel Risk - International Travel Have you traveled outside of the country in past 3 weeks: No - Coronavirus Screening Are you exhibiting any of the following symptoms?: No Close contact with a COVID-19 positive Pt in past 14-21 Days: No - Vaccine Status Have you recieved a Covid-19 vaccination: Yes Cut Out Stitcher: Unknown - Vaccination Dates Date of 2cond Vaccination (if applicable): 10/19/20 Dates if Unknown: september and october 2020 - Review of Systems Constitutional: No Symptoms Eyes: No Symptoms Ears, Nose, & Throat: No Symptoms Respiratory: No Symptoms Cardiac: No Symptoms Abdominal/Gastrointestinal: No Symptoms Genitourinary Symptoms: No Symptoms Musculoskeletal: Back Pain Skin: No Symptoms Neurological: No Symptoms Psychological: No Symptoms Endocrine: No Symptoms Hematologic/Lymphatic: No Symptoms Immunological/Allergic: No Symptoms All Other Systems: Reviewed and Negative - Past Medical History Pertinent Past Medical History: Yes Neurological History: Seizures ENT History: No Pertinent History Cardiac History: Deep Vein Thrombosis, Hypertension Respiratory History: Bronchitis Endocrine Medical History: No Pertinent History Musculoskeletal History: Fractures GI Medical History: GERD History: No Pertinent History Psycho-Social History: No Pertinent History Female Reproductive Disorders: No Pertinent History Other Medical History: PT. HAS SMOKING HX, GERD, R HUMERUS FX, CHOLCYSTECTOMY, TUBAL, HERNIA. - Past Surgical History Past Surgical History: Yes Neuro Surgical History: No Pertinent History Cardiac: No Pertinent History Respiratory: No Pertinent History Gastrointestinal: Cholecystectomy, Hernia Repair Genitourinary: No Pertinent History Musculoskeletal: No Pertinent History Female Surgical History: Tubal Ligation Other Surgical History: Varicose vein surgery - Social History Smoking Status: Former smoker How long have you smoked: 49 Exposure to second hand smoke: No Drug Use: none Patient Lives Alone: No Significant Family History: no pertinent family hx - Nursing Vital Signs Nursing Vital Signs: Initial Vital Signs Temperature 99.8 F 02/18/21 23:04 Pulse Rate 83 02/18/21 23:04 Respiratory Rate 18 02/18/21 23:04 Blood Pressure 120/79 02/18/21 23:04 O2 Sat by Pulse Oximetry 98 02/18/21 23:04 Pain Scale Pain Intensity [Lower Back] 7 Pain Intensity 7 - Physical Exam General Appearance: mild distress, alert, anxiety, obese Eye Exam: PERRL/EOMI, eyes nml inspection Ears, Nose, Throat Exam: normal ENT inspection, moist mucous membranes Neck Exam: normal inspection, non-tender, supple, full range of motion Respiratory Exam: normal breath sounds, lungs clear, airway intact, No chest tenderness, No respiratory distress Cardiovascular Exam: regular rate/rhythm, normal heart sounds, normal peripheral pulses Pelvic Exam: not done Rectal Exam: not done Back Exam: normal inspection, vertebral tenderness (Number level), decreased range of motion, muscle spasm, No CVA tenderness Extremity Exam: normal inspection, normal range of motion, pelvis stable Neurologic Exam: alert, oriented x 3, cooperative, lock setter II-XII nml as tested, normal mood/affect Skin Exam: normal color, warm, dry Lymphatic Exam: No adenopathy SpO2 Interpretation: normal O2 Delivery: Room Air - Course Nursing assessment & vital signs reviewed: Yes - Progress Progress: pain not gone completely, re-examined Progress Note: 02/18/21 23:15 Medical decision making: This patient was discharged from this emergency department 12 hours ago. Her pain regimen has been ineffective for her. She has failed outpatient therapy and we will admit her with intractable back pain. I called Dr. Woodard, the hospitalist on-call for Dr. Marquez. He stated we did not need to repeat our earlier work-up since it is at only 12 hours old. He wants the patient placed on a DIGITAL PERFORMANCE ANALYST Dilaudid. I will also add as needed Ativan. Discussed with : Amairani Counseled pt/family regarding: diagnosis, need for follow-up - Departure Departure Disposition: Observation Clinical Impression: Intractable low back pain Condition: Stable Critical Care Time: No Referrals: TOBIAS MARQUEZ [Primary Care Provider] -
[2021-02-19] MEDS ORDERED: TYLENOL 325 MG PO PRN (00:32)
[2021-02-19] MEDS ORDERED: Ativan 2 MG/1 ML VIAL IV PRN (00:32)
[2021-02-19] MEDS ORDERED: Zofran 4 MG/2 ML VIAL IV PRN (00:32)
[2021-02-19] MEDS: Sodium Chloride 0.9% 1000 ML 1,000 ML IV SCH ×2 (00:43→20:02)
[2021-02-19] MEDS: DILAUDID 1 MG/1ML PCA IV PRN ×2 (01:39→18:49)
[2021-02-19] MEDS ORDERED: PROVENTIL 2.5 MG/3 ML NEB IH PRN (05:08)
[2021-02-19] MEDS: Advair Hfa 115/21 Common canister IH SCH ×2 (08:38→19:32)
[2021-02-19] MEDS ORDERED: Zestril 10 MG PO SCH (10:15)
[2021-02-19] MEDS ORDERED: Lasix 40 MG PO SCH (10:15)
[2021-02-19] MEDS: Lasix 40 MG PO SCH ×3 (11:13→21:08)
[2021-02-19] MEDS: ELIQUIS 2.5 MG TABLET PO SCH ×2 (11:13→21:07)
[2021-02-19] MEDS: Coreg 3.125 MG PO SCH ×2 (11:13→21:08)
[2021-02-19] MEDS: Norflex 100 MG Tablet PO SCH ×2 (11:13→21:07)
[2021-02-19] MEDS: PERCOCET TABLET 5/325MG PO SCH ×2 (11:14→21:07)
[2021-02-19 11:36] LABS: Absolute Neutrophil Ct (ANC) 7.02 (1.4-6.9); BASOPHIL % 0.2 % (0.0-0.4); Basophil (Absolute #) 0.02 (0-0.4); Eosinophil % 1.4 % (0.00-5.0); Eosinophil (Absolute #) 0.13 (0-0.5); Hematocrit 35.8 % (35-47); Hemoglobin 10.9 gm/dl (12.0-16.0); Lymphocyte (Absolute #) 1.25 (1.0-4.6); Lymphocytes % 13.9 % (24.0-44.0); Mean Cell Volume 98.4 fl (78-100); Mean Corpuscular Hemoglobin 29.9 pg (26-32); Mean Corpuscular Hgb Concent. 30.4 g/dl (32-36); Monocyte (Absolute #) 0.58 (0.0-1.3); Monocytes % 6.4 % (0.0-12.0); Neutrophil % 78.1 % (36.0-66.0); Platelet Count 299 K/mm3 (150-450); Red Blood Count 3.64 M/mm3 (4.1-5.4); Red Cell Distribution Width 16.2 % (11.5-14.0)
[2021-02-19 12:20] LABS: ALBUMIN 3.5 g/dL (3.5-5.0); ALKALINE PHOSPHATASE 78 U/L (38-126); ANION GAP 10.6 MEQ/L (5-15); BLOOD UREA NITROGEN 18 mg/dL (7-17); CHLORIDE 103 mmol/L (98-107); Carbon Dioxide 28 mmol/L (22-30); Creatinine 1 0.78 mg/dL (0.52-1.04); EST GLOMERULAR FILTRATION RATE > 60.0 ML/MIN; Glucose 109 mg/dL (74-106); NT PRO BNP 450 pg/mL (0-900); Potassium 4.2 mmol/L (3.5-5.1); SGOT/AST 37 U/L (14-36); SGPT/ALT 41 U/L (0-35); SODIUM 137 mmol/L (137-145); Total Protein 6.6 g/dL (6.3-8.2)
--- NOTE | 2021-02-19 12:54 | PCM.HP ---
History of Present Illness - Chief Complaint Chief Complaint: Intractable back pain History of Present Illness: is a 60 year old obese white female patient of Dr. Marquez who has chronic low back pain, hypertension, COPD, renal insufficiency, peripheral vascular disease and peripheral edema chronically and presents with significant lumbar pain. Patient was seen by her pain specialist on 02/17/2021. She received steroid injections and nonsteroidal anti-inflammatory injection. This morning, she was having acute pain in her lower back. Patient presents to the emergency department here 12 hours ago approximately and denies any injury/trauma. Patient underwent a CAT scan of the lumbar spine which showed no acute fractures but chronic changes present. Her urinalysis was free of infection. Patient was sent home and told to take her oxycodone and Norflex replaced her Flexeril. Patient returns to the emergency department here approximately 12 hours after discharge from this emergency department with intractable back pain. She has not had any new falls or trauma since her discharge to home 12 hours ago Timing/Duration: today Method of Injury: other Quality: sharp ([place]) Back Pain Location: lumbar spine Back Pain Radiation: buttocks Severity of Pain-Max: moderate Severity of Pain-Current: moderate Modifying Factors: Improves With: movement Associated Symptoms: denies symptoms, lower back pain, muscle spasms, No fever, No urinary incontinence, No loss of bowel control, No numbness in legs/feet, No tingling in legs/feet Previous symptoms: same symptoms as today, recently seen, recently treated - Review of Systems Constitutional: No Fever, No Chills Eyes: No Symptoms Ears, Nose, & Throat: No Symptoms Respiratory: No Cough, No Short Of Breath Cardiac: No Chest Pain, No Edema, No Syncope Abdominal/Gastrointestinal: No Abdominal Pain, No Nausea, No Vomiting, No Diarrhea Genitourinary Symptoms: No Dysuria Musculoskeletal: No Back Pain, No Neck Pain Skin: No Rash Neurological: No Dizziness, No Focal Weakness, No Sensory Changes Psychological: No Symptoms Endocrine: No Symptoms Hematologic/Lymphatic: No Symptoms Immunological/Allergic: No Symptoms Medications & Allergies Home Medications: Home Medication List Carvedilol 3.125 mg [Coreg 3.125 MG] 3.125 mg PO BID 01/15/21 [History Confirmed 02/18/21] Ondansetron ODT 4 MG [Zofran Odt 4 mg] 4 mg PO Q6H PRN PRN #10 tab.rapdis 01/15/21 [Rx Confirmed 02/18/21] lisinopriL [Lisinopril] 10 mg PO DAILY 01/15/21 [History Confirmed 02/18/21] Albuterol 2.5 mg/3 ml Neb [Proventil 2.5 mg/3 ml Neb] 1 amp IH Q4-6HPRN PRN 01/22/21 [History Confirmed 02/18/21] Fluticasone Propion/Salmeterol [Fluticasone-Salmeterol 250-50] 1 blist IH BID 01/22/21 [History Confirmed 02/18/21] Oxycodone HCl/Acetaminophen [Oxycodone-Acetaminophen 5-325] 1 each PO BID 02/05/21 [History Confirmed 02/18/21] Amoxicillin/Potassium Clav [Augmentin 875-125 Tablet] 875 mg PO BID 10 Days #20 tablet 02/08/21 [Rx Confirmed 02/18/21] Apixaban [Eliquis] 5 mg PO BID 30 Days #60 tablet 02/08/21 [Rx Confirmed 02/18/21] Furosemide 40 mg PO TID 30 Days #90 tablet 02/08/21 [Rx Confirmed 02/18/21] Orphenadrine Citrate 100 mg [Norflex 100 MG Tablet] 100 mg PO BID #8 tab MDD 2 02/18/21 [Rx Confirmed 02/18/21] Allergies/Adverse Reactions: Allergies Allergy/AdvReac Type Severity Reaction Status Date / Time No Known Drug Allergies Allergy Verified 02/18/21 23:16 - Past Medical History Past Medical History: Yes Neurological History: Seizures ENT History: No Pertinent History Cardiac History: Deep Vein Thrombosis, Hypertension Respiratory History: Bronchitis Endocrine Medical History: No Pertinent History Musculoskelatal History: Fractures GI Medical History: GERD History: No Pertinent History Pyscho-Social History: No Pertinent History Reproductive Disorders: No Pertinent History Comment: PT. HAS SMOKING HX, GERD, R HUMERUS FX, CHOLCYSTECTOMY, TUBAL, HERNIA. - Female History Are you now?: No - Past Surgical History Past Surgical History: Yes Neuro Surgical History: No Pertinent History Cardiac History: No Pertinent History Respiratory Surgery: No Pertinent History GI Surgical History: Cholecystectomy, Hernia Repair Genitourinary Surgical Hx: No Pertinent History Musculskeletal Surgical Hx: No Pertinent History Female Surgical History: Tubal Ligation Other Surgical History: Varicose vein surgery - Social History Smoking Status: Former smoker How long have you smoked: 49 Exposure to second hand smoke: No Alcohol: None Drug Use: none Significant Family History: no pertinent family hx - Physical Exam Vital Signs: Vital Signs - 24 hr Temp Pulse Resp BP BP Pulse Ox 02/19/21 08:38 72 18 97 02/19/21 08:00 98.0 F 72 20 102/59 97 02/19/21 05:39 96 02/19/21 05:09 87 21 96 02/19/21 04:00 98.1 F 76 21 117/71 96 02/19/21 02:01 91 L 02/19/21 02:00 98.7 F 85 24 125/60 96 02/19/21 01:39 91 L 02/19/21 00:13 82 18 105/72 95 02/18/21 23:04 99.8 F 83 18 120/79 98 General Appearance: no apparent distress, alert Neurologic Exam: alert, oriented x 3, cooperative, normal mood/affect, nml cerebellar function, nml station & gait, sensation nml, No motor deficits Eye Exam: PERRL/EOMI, eyes nml inspection Ears, Nose, Throat Exam: normal ENT inspection, TMs normal, pharynx normal, moist mucous membranes Neck Exam: normal inspection, non-tender, supple, full range of motion Respiratory Exam: normal breath sounds, lungs clear, No respiratory distress Cardiovascular Exam: regular rate/rhythm, normal heart sounds, normal peripheral pulses Gastrointestinal/Abdomen Exam: soft, normal bowel sounds, No tenderness, No mass Back Exam: vertebral tenderness, decreased range of motion, muscle spasm, No normal range of motion, No CVA tenderness Extremity Exam: normal inspection, normal range of motion, pelvis stable Skin Exam: normal color, warm, dry, No rash Lymphatic Exam: No adenopathy Results - Labs Lab/Micro Results: Lab Results-Last 24 Hours 02/18/21 02/19/21 02/19/21 Range/Units 23:21 11:22 11:22 WBC 9.0 (4.0-10.5) K/mm3 RBC 3.64 L (4.1-5.4) M/mm3 Hgb 10.9 L (12.0-16.0) gm/dl Hct 35.8 (35-47) % MCV 98.4 (78-100) fl MCH 29.9 (26-32) pg MCHC 30.4 L (32-36) g/dl RDW 16.2 H (11.5-14.0) % Plt Count 299 (150-450) K/mm3 MPV 10.0 (7.5-11.0) fl Gran % 78.1 H (36.0-66.0) % Eos # (Auto) 0.13 (0-0.5) Absolute Lymphs (auto) 1.25 (1.0-4.6) Absolute Monos (auto) 0.58 (0.0-1.3) Lymphocytes % 13.9 L (24.0-44.0) % Monocytes % 6.4 (0.0-12.0) % Eosinophils % 1.4 (0.00-5.0) % Basophils % 0.2 (0.0-0.4) % Absolute Granulocytes 7.02 H (1.4-6.9) Basophils # 0.02 (0-0.4) Sodium 137 (137-145) mmol/L Potassium 4.2 (3.5-5.1) mmol/L Chloride 103 (98-107) mmol/L Carbon Dioxide 28 (22-30) mmol/L Anion Gap 10.6 (5-15) MEQ/L BUN 18 H (7-17) mg/dL Creatinine 0.78 (0.52-1.04) mg/dL Estimated GFR > 60.0 ML/MIN Glucose 109 H (74-106) mg/dL Calcium 9.0 (8.4-10.2) mg/dL Total Bilirubin 0.30 (0.2-1.3) mg/dL AST 37 H (14-36) U/L ALT 41 H (0-35) U/L Alkaline Phosphatase 78 (38-126) U/L NT-Pro-B Natriuret Pep 450 (0-900) pg/mL Serum Total Protein 6.6 (6.3-8.2) g/dL Albumin 3.5 (3.5-5.0) g/dL SARS-CoV-2 (PCR) NEGATIVE (NEGATIVE) - Other Procedures and Tests Respiratory Therapy 02/19/21 02:08 Oxygen Nasal Cannula 2 lpm 02/19/21 05:09 Respiratory Therapy Assessment DAILY Assessment/Plan (1) Intractable low back pain Current Visit: Yes Status: Acute Assessment & Plan: Chief Complaint Diagnosis Intractable back pain Allergies Allergy/AdvReac Type Severity Reaction Status Date / Time No Known Drug Allergies Allergy Verified 02/18/21 23:16 Vital Signs (Last 24 hours) Temp Pulse Resp BP BP Pulse Ox 02/19/21 08:38 72 18 97 02/19/21 08:00 98.0 F 72 20 102/59 97 02/19/21 05:39 96 02/19/21 05:09 87 21 96 02/19/21 04:00 98.1 F 76 21 117/71 96 02/19/21 02:01 91 L 02/19/21 02:00 98.7 F 85 24 125/60 96 02/19/21 01:39 91 L 02/19/21 00:13 82 18 105/72 95 02/18/21 23:04 99.8 F 83 18 120/79 98 Current Medications Generic Name Dose Route Start Last Admin Trade Name Freq PRN Reason Stop Dose Admin Acetaminophen 650 mg 02/19/21 00:32 Tylenol 325 Mg PO 03/21/21 00:31 Q4H PRN PRN PAIN, FEVER, HEADACHE Albuterol Sulfate 2.5 mg 02/19/21 05:08 Proventil 2.5 Mg/3 Ml Neb IH 03/21/21 05:07 Q4H PRN PRN SHORTNESS OF BREATH/WHEEZING Apixaban 5 mg 02/19/21 10:15 02/19/21 11:13 Eliquis 2.5 Mg Tablet PO 03/21/21 10:14 5 mg BID JIGAR Administration Carvedilol 3.125 mg 02/19/21 10:15 02/19/21 11:13 Coreg 3.125 Mg PO 03/21/21 10:14 3.125 mg BID JIGAR Administration Furosemide 40 mg 02/19/21 10:15 02/19/21 11:13 Lasix 40 Mg PO 03/21/21 10:14 40 mg TID DIURETIC JIGAR Administration Hydromorphone HCl 30 mg 02/19/21 01:12 02/19/21 01:39 Dilaudid 1 Mg/1ml Title Clerk IV 02/24/21 01:11 30 mg UD PRN Administration PAIN Sodium Chloride 1,000 mls @ 50 mls/hr 02/19/21 00:32 02/19/21 00:43 Sodium Chloride 0.9% 1000 Ml IV 03/21/21 00:31 50 mls/hr .Q20H JIGAR Administration Lisinopril 10 mg 02/19/21 10:15 02/19/21 11:13 Zestril 10 Mg PO 03/21/21 10:14 10 mg DAILY JIGAR Administration Lorazepam 0.5 mg 02/19/21 00:32 Ativan 2 Mg/1 Ml Vial IV 03/21/21 00:31 Q4H PRN PRN ANXIETY Ondansetron HCl 4 mg 02/19/21 00:32 Zofran 4 Mg/2 Ml Vial IV 03/21/21 00:31 Q6H PRN PRN NAUSEA/VOMITING Ondansetron HCl 4 mg 02/19/21 10:08 Zofran Odt 4 Mg PO 03/21/21 10:07 Q6H PRN PRN NAUSEA/VOMITING Orphenadrine Citrate 100 mg 02/19/21 10:15 02/19/21 11:13 Norflex 100 Mg Tablet PO 03/21/21 10:14 100 mg BID JIGAR Administration Oxycodone/Acetaminophen 1 tab 02/19/21 10:15 02/19/21 11:14 Percocet Tablet 5/325mg PO 02/24/21 10:14 Not Given BID JIGAR Fluticasone/Salmeterol 2 puff 02/19/21 07:00 02/19/21 08:38 Advair Hfa 115/21 Common Canister* IH 03/21/21 06:59 2 puff BIDRT JIGAR Administration Discontinued Medications Generic Name Dose Route Start Last Admin Trade Name Freq PRN Reason Stop Dose Admin Furosemide 40 mg 02/19/21 10:15 Lasix 40 Mg PO 03/21/21 10:14 TID JIGAR Intake & Output (Last 24 hours) 02/17/21 02/18/21 02/19/21 02/20/21 11:59 11:59 11:59 11:59 Intake Total 502 Balance 502 Weight 131.4 kg Microbiology Results (Last 24 hours) 02/19/21 10:00 Urine, Indwelling Catheter Urine Culture - Pending Laboratory Results (Last 24 hours) 02/19/21 02/19/21 02/18/21 11:22 11:22 23:21 WBC 9.0 RBC 3.64 L Hgb 10.9 L Hct 35.8 MCV 98.4 MCH 29.9 MCHC 30.4 L RDW 16.2 H Plt Count 299 MPV 10.0 Gran % 78.1 H Eos # (Auto) 0.13 Absolute Lymphs (auto) 1.25 Absolute Monos (auto) 0.58 Lymphocytes % 13.9 L Monocytes % 6.4 Eosinophils % 1.4 Basophils % 0.2 Absolute Granulocytes 7.02 H Basophils # 0.02 Sodium 137 Potassium 4.2 Chloride 103 Carbon Dioxide 28 Anion Gap 10.6 BUN 18 H Creatinine 0.78 Estimated GFR > 60.0 Glucose 109 H Calcium 9.0 Total Bilirubin 0.30 AST 37 H ALT 41 H Alkaline Phosphatase 78 NT-Pro-B Natriuret Pep 450 Serum Total Protein 6.6 Albumin 3.5 SARS-CoV-2 (PCR) NEGATIVE Orders (Last 24 hours) Category Date Time Status Bedrest TOLERATED Activity 02/19/21 00:32 Active Catheter Care Record Q6H Care 02/19/21 09:09 Active Code Status Order ROUTINE Care 02/19/21 00:32 Active Frank [Catheter-[place] Frank] STAT Care 02/19/21 09:09 Active IV Insertion ROUTINE Care 02/19/21 00:[address] in Observation ROUTINE Care 02/19/21 00:32 Active Weight,Daily 0600 Care 02/19/21 00:32 Active Infection Control Consult ROUTINE Cons 02/19/21 02:58 Active Life Insurance Underwriter/Discharge Plan ROUTINE Cons 02/19/21 02:58 Active House Regular Diet Diet 02/19/21 Breakfast Active BNP [NT PRO BNP] Routine Lab 02/19/21 11:22 Completed CBC W DIFF Routine Lab 02/19/21 11:22 Completed CMP Routine Lab 02/19/21 11:22 Completed CULTURE,URINE Routine Lab 02/19/21 10:00 Received SARS-CoV-2 [facility] Stat Lab 02/18/21 23:21 Completed Acetaminophen 325 mg [Tylenol 325 mg] Med 02/19/21 00:32 Active 650 mg PO Q4H PRN PRN Albuterol 2.5 mg/3 ml Neb [Proventil 2.5 mg/3 ml Neb Med 02/19/21 05:08 Active ] 2.5 mg IH Q4H PRN PRN Apixaban [Eliquis 2.5 mg Tablet] Med 02/19/21 10:15 Active 5 mg PO BID Carvedilol 3.125 mg [Coreg 3.125 MG] Med 02/19/21 10:15 Active 3.125 mg PO BID Fluticasone/Salmeterol [Advair Hfa Common Med 02/19/21 07:00 Active canister*] 2 puff IH BIDRT Furosemide 40 mg [Lasix 40 MG] Med 02/19/21 10:15 Discontinued 40 mg PO TID Furosemide 40 mg [Lasix 40 MG] Med 02/19/21 10:15 Active 40 mg PO TID DIURETIC Hydromorphone HCl 30 mg/30 ml* [Dilaudid 1 mg/1Ml DOCUMENT PREPARATION SPECIALIST Med 02/19/21 01:12 Active *] 30 mg IV UD PRN Lisinopril 10 mg [Zestril 10 MG] Med 02/19/21 10:15 Active 10 mg PO DAILY Lorazepam 2 mg/1 ml [Ativan 2 MG/1 ML VIAL] Med 02/19/21 00:32 Active 0.5 mg IV Q4H PRN PRN NaCl 0.9% 1000 ml [Sodium Chloride 0.9% 1000 ML] 1,000 Med 02/19/21 00:32 Active ml IV 50 mls/hr Ondansetron HCl 4 mg/2 ml [Zofran 4 MG/2 ML VIAL] Med 02/19/21 00:32 A ctive 4 mg IV Q6H PRN PRN Ondansetron ODT 4 MG [Zofran Odt 4 mg] Med 02/19/21 10:08 Active 4 mg PO Q6H PRN PRN Orphenadrine Citrate 100 mg [Norflex 100 MG Tablet Med 02/19/21 10:15 Active *] 100 mg PO BID Oxycodone/APAP 5 mg/325 mg [Percocet Tablet 5/325Mg Med 02/19/21 10:15 Active *] 1 tab PO BID OT Screen per Nursing Assess ONCE OT 02/19/21 02:58 Active PT Eval & Treat (MD Order) ONCE PT 02/19/21 00:32 Active PT Screen per Nursing Assess ONCE PT 02/19/21 02:58 Active Oxygen Nasal Cannula 2 lpm RT 02/19/21 02:08 Active Pulse Oximetry CONTINUOUS RT 02/19/21 00:32 Active RT Screen per Nursing Assess ONCE RT 02/19/21 02:58 Completed Respiratory Therapy Assessment DAILY RT 02/19/21 05:09 Active Patient Care Notes (Last 24 hours) 02/19/21 09:07 Nursing Note by AlexaCecile Unable to get up due to pain. Unable to void using bedpan. Dr Woodard notified and order for frank. Initialized on 02/19/21 09:07 - END OF NOTE 02/19/21 05:53 Nursing Note by Jeanna Jovel pt O2 was 96% on RA during admission, after hooking up to DOCUMENT PREPARATION SPECIALIST, pt O2 was 88-90 called RT and put pt on 2L NC, O2 sat is now 96-98%. Initialized on 02/19/21 05:53 - END OF NOTE Code(s): M54.5 - LOW BACK PAIN
[2021-02-19] MEDS ORDERED: NON-FORMULARY ITEM (Apixaban [Eliquis] 5 MG) PO SCH (22:00)
[2021-02-20] MEDS: Advair Hfa 115/21 Common canister IH SCH ×2 (07:26→19:09)
--- NOTE | 2021-02-20 08:02 | PCM.NOTE ---
Date and Time: 02/20/21 0800 Subjective Assessment: doing ok - Review of Systems Constitutional: No Fever, No Chills Eyes: No Symptoms Ears, Nose, & Throat: No Symptoms Respiratory: No Cough, No Short Of Breath Cardiac: No Chest Pain, No Edema, No Syncope Abdominal/Gastrointestinal: No Abdominal Pain, No Nausea, No Vomiting, No Diarrhea Genitourinary Symptoms: No Dysuria Musculoskeletal: Back Pain, No Neck Pain Skin: No Rash Neurological: No Dizziness, No Focal Weakness, No Sensory Changes Psychological: No Symptoms Endocrine: No Symptoms Hematologic/Lymphatic: No Symptoms Immunological/Allergic: No Symptoms Objective Exam General Appearance: no apparent distress, alert Neurologic Exam: alert, oriented x 3, cooperative, normal mood/affect, nml cerebellar function, sensation nml, No motor deficits Skin Exam: normal color, warm, dry Eye Exam: PERRL, EOMI, eyes nml inspection Ears, Nose, Throat Exam: normal ENT inspection, pharynx normal, moist mucous membranes Neck Exam: normal inspection, non-tender, supple, full range of motion Respiratory Exam: normal breath sounds, lungs clear, No respiratory distress Cardiovascular Exam: regular rate/rhythm, normal heart sounds Gastrointestinal/Abdomen Exam: soft, No tenderness, No mass Extremity Exam: normal inspection, normal range of motion Back Exam: normal inspection, normal range of motion, No CVA tenderness, No vertebral tenderness Pelvic Exam: deferred Rectal Exam: deferred OBJECTIVE DATA Vital Signs: Vital Signs - 24 hr Temp Pulse Resp BP BP Pulse Ox 02/20/21 07:26 57 L 16 96 02/20/21 06:36 99 02/20/21 04:00 97.9 F 60 16 85/65 96 02/19/21 23:51 98.5 F 65 22 90/70 95 02/19/21 19:52 98.5 F 59 L 21 86/54 97 02/19/21 19:32 60 16 94 L 02/19/21 18:49 97 02/19/21 16:00 98.4 F 64 18 92/58 97 02/19/21 12:00 98.4 F 74 20 100/50 97 02/19/21 09:39 97 02/19/21 08:38 72 18 97 Pain Assessment - Last Documented Pain Intensity [Lower Back] 7 Pain Intensity 4 Intake and Output: Intake & Output 08/05/02/18/21 02/19/21 02/20/21 11:59 11:59 11:59 11:59 Intake Total 502 3449 Output Total 525 Balance 502 0404 Weight 131.4 kg 136 kg Lab Results: Lab Results-Last 24 Hours 02/19/21 02/19/21 Range/Units 11:22 11:22 WBC 9.0 (4.0-10.5) K/mm3 RBC 3.64 L (4.1-5.4) M/mm3 Hgb 10.9 L (12.0-16.0) gm/dl Hct 35.8 (35-47) % MCV 98.4 (78-100) fl MCH 29.9 (26-32) pg MCHC 30.4 L (32-36) g/dl RDW 16.2 H (11.5-14.0) % Plt Count 299 (150-450) K/mm3 MPV 10.0 (7.5-11.0) fl Gran % 78.1 H (36.0-66.0) % Eos # (Auto) 0.13 (0-0.5) Absolute Lymphs (auto) 1.25 (1.0-4.6) Absolute Monos (auto) 0.58 (0.0-1.3) Lymphocytes % 13.9 L (24.0-44.0) % Monocytes % 6.4 (0.0-12.0) % Eosinophils % 1.4 (0.00-5.0) % Basophils % 0.2 (0.0-0.4) % Absolute Granulocytes 7.02 H (1.4-6.9) Basophils # 0.02 (0-0.4) Sodium 137 (137-145) mmol/L Potassium 4.2 (3.5-5.1) mmol/L Chloride 103 (98-107) mmol/L Carbon Dioxide 28 (22-30) mmol/L Anion Gap 10.6 (5-15) MEQ/L BUN 18 H (7-17) mg/dL Creatinine 0.78 (0.52-1.04) mg/dL Estimated GFR > 60.0 ML/MIN Glucose 109 H (74-106) mg/dL Calcium 9.0 (8.4-10.2) mg/dL Total Bilirubin 0.30 (0.2-1.3) mg/dL AST 37 H (14-36) U/L ALT 41 H (0-35) U/L Alkaline Phosphatase 78 (38-126) U/L NT-Pro-B Natriuret Pep 450 (0-900) pg/mL Serum Total Protein 6.6 (6.3-8.2) g/dL Albumin 3.5 (3.5-5.0) g/dL Assessment/Plan (1) Intractable low back pain Current Visit: Yes Status: Acute Assessment & Plan: Chief Complaint Diagnosis Intractable back pain Allergies Allergy/AdvReac Type Severity Reaction Status Date / Time No Known Drug Allergies Allergy Verified 02/18/21 23:16 Vital Signs (Last 24 hours) Temp Pulse Resp BP BP Pulse Ox 02/20/21 07:26 57 L 16 96 02/20/21 06:36 99 02/20/21 04:00 97.9 F 60 16 85/65 96 02/19/21 23:51 98.5 F 65 22 90/70 95 02/19/21 19:52 98.5 F 59 L 21 86/54 97 02/19/21 19:32 60 16 94 L 02/19/21 18:49 97 02/19/21 16:00 98.4 F 64 18 92/58 97 02/19/21 12:00 98.4 F 74 20 100/50 97 02/19/21 09:39 97 02/19/21 08:38 72 18 97 Current Medications Generic Name Dose Route Start Last Admin Trade Name Freq PRN Reason Stop Dose Admin Acetaminophen 650 mg 02/19/21 00:32 Tylenol 325 Mg PO 03/21/21 00:31 Q4H PRN PRN PAIN, FEVER, HEADACHE Albuterol Sulfate 2.5 mg 02/19/21 05:08 Proventil 2.5 Mg/3 Ml Neb IH 03/21/21 05:07 Q4H PRN PRN SHORTNESS OF BREATH/WHEEZING Apixaban 5 mg 02/19/21 10:15 02/19/21 21:07 Eliquis 2.5 Mg Tablet PO 03/21/21 10:14 5 mg BID JIGAR Administration Carvedilol 3.125 mg 02/19/21 10:15 02/19/21 21:08 Coreg 3.125 Mg PO 03/21/21 10:14 Not Given BID JIGAR Furosemide 40 mg 02/19/21 10:15 02/19/21 21:08 Lasix 40 Mg PO 03/21/21 10:14 Not Given TID DIURETIC JIGAR Hydromorphone HCl 30 mg 02/19/21 01:12 02/19/21 18:49 Dilaudid 1 Mg/1ml Substance Abuse Nurse IV 02/24/21 01:11 6.9 mg UD PRN Administration PAIN Sodium Chloride 1,000 mls @ 50 mls/hr 02/19/21 00:32 02/19/21 20:02 Sodium Chloride 0.9% 1000 Ml IV 03/21/21 00:31 50 mls/hr .Q20H JIGAR Administration Lisinopril 10 mg 02/19/21 10:15 02/19/21 11:13 Zestril 10 Mg PO 03/21/21 10:14 10 mg DAILY JIGAR Administration Lorazepam 0.5 mg 02/19/21 00:32 Ativan 2 Mg/1 Ml Vial IV 03/21/21 00:31 Q4H PRN PRN ANXIETY Ondansetron HCl 4 mg 02/19/21 00:32 Zofran 4 Mg/2 Ml Vial IV 03/21/21 00:31 Q6H PRN PRN NAUSEA/VOMITING Ondansetron HCl 4 mg 02/19/21 10:08 Zofran Odt 4 Mg PO 03/21/21 10:07 Q6H PRN PRN NAUSEA/VOMITING Orphenadrine Citrate 100 mg 02/19/21 10:15 02/19/21 21:07 Norflex 100 Mg Tablet PO 03/21/21 10:14 100 mg BID JIGAR Administration Oxycodone/Acetaminophen 1 tab 02/19/21 10:15 02/19/21 21:07 Percocet Tablet 5/325mg PO 02/24/21 10:14 Not Given BID JIGAR Fluticasone/Salmeterol 2 puff 02/19/21 07:00 02/20/21 07:26 Advair Hfa 115/21 Common Canister* IH 03/21/21 06:59 2 puff BIDRT JIGAR Administration Discontinued Medications Generic Name Dose Route Start Last Admin Trade Name Freq PRN Reason Stop Dose Admin Furosemide 40 mg 02/19/21 10:15 Lasix 40 Mg PO 03/21/21 10:14 TID JIGAR Intake & Output (Last 24 hours) 02/17/21 02/18/21 02/19/21 02/20/21 11:59 11:59 11:59 11:59 Intake Total 502 3449 Output Total 525 Balance 502 2924 Weight 131.4 kg 136 kg Microbiology Results (Last 24 hours) 02/19/21 10:00 Urine, Indwelling Catheter Urine Culture - Preliminary NO GROWTH TO DATE Laboratory Results (Last 24 hours) 02/19/21 02/19/21 11:22 11:22 WBC 9.0 RBC 3.64 L Hgb 10.9 L Hct 35.8 MCV 98.4 MCH 29.9 MCHC 30.4 L RDW 16.2 H Plt Count 299 MPV 10.0 Gran % 78.1 H Eos # (Auto) 0.13 Absolute Lymphs (auto) 1.25 Absolute Monos (auto) 0.58 Lymphocytes % 13.9 L Monocytes % 6.4 Eosinophils % 1.4 Basophils % 0.2 Absolute Granulocytes 7.02 H Basophils # 0.02 Sodium 137 Potassium 4.2 Chloride 103 Carbon Dioxide 28 Anion Gap 10.6 BUN 18 H Creatinine 0.78 Estimated GFR > 60.0 Glucose 109 H Calcium 9.0 Total Bilirubin 0.30 AST 37 H ALT 41 H Alkaline Phosphatase 78 NT-Pro-B Natriuret Pep 450 Serum Total Protein 6.6 Albumin 3.5 Orders (Last 24 hours) Category Date Time Status Catheter Care Record Q6H Care 02/19/21 09:09 Active Frank [Catheter-[place] Frank] STAT Care 02/19/21 09:09 Active BNP [NT PRO BNP] Routine Lab 02/19/21 11:22 Completed CBC W DIFF Routine Lab 02/19/21 11:22 Completed CMP Routine Lab 02/19/21 11:22 Completed CULTURE,URINE Routine Lab 02/19/21 10:00 Results Apixaban [Eliquis 2.5 mg Tablet] Med 02/19/21 10:15 Active 5 mg PO BID Carvedilol 3.125 mg [Coreg 3.125 MG] Med 02/19/21 10:15 Active 3.125 mg PO BID Furosemide 40 mg [Lasix 40 MG] Med 02/19/21 10:15 Discontinued 40 mg PO TID Furosemide 40 mg [Lasix 40 MG] Med 02/19/21 10:15 Active 40 mg PO TID DIURETIC Lisinopril 10 mg [Zestril 10 MG] Med 02/19/21 10:15 Active 10 mg PO DAILY Ondansetron ODT 4 MG [Zofran Odt 4 mg] Med 02/19/21 10:08 Active 4 mg PO Q6H PRN PRN Orphenadrine Citrate 100 mg [Norflex 100 MG Tablet Med 02/19/21 10:15 Active *] 100 mg PO BID Oxycodone/APAP 5 mg/325 mg [Percocet Tablet 5/325Mg Med 02/19/21 10:15 Active *] 1 tab PO BID Incentive Spirometry UD RT 02/19/21 13:37 Active Patient Care Notes (Last 24 hours) 02/20/21 07:54 CASING SOAKER Note by Kerry Mendoza This patient could not tolerate bed being flat, patient weighed with HOB at aprox. 20 degree angle Initialized on 02/20/21 07:54 - END OF NOTE 02/20/21 04:03 CASING SOAKER Note by Nellie Longoria RN is aware of PT's BP 85/65 Initialized on 02/20/21 04:03 - END OF NOTE 02/19/21 19:53 CASING SOAKER Note by Nellie Longoria RN was notified of pts BP being86/54. pt stated that she felt fine. Initialized on 02/19/21 19:53 - END OF NOTE 02/19/21 09:07 Nursing Note by Cecile Liu Unable to get up due to pain. Unable to void using bedpan. Dr Woodard notified and order for frank. Initialized on 02/19/21 09:07 - END OF NOTE Code(s): M54.5 - LOW BACK PAIN
[2021-02-20] MEDS: ELIQUIS 2.5 MG TABLET PO SCH ×2 (10:07→21:52)
[2021-02-20] MEDS: Lasix 40 MG PO SCH ×3 (10:10→16:59)
[2021-02-20] MEDS ORDERED: PHARMACY DOSING REQUIRED: DILAUDID PCA IV STA (12:18)
[2021-02-20] MEDS: DILAUDID 1 MG/1ML PCA IV PRN ×2 (14:55→18:31)
[2021-02-20] MEDS: Sodium Chloride 0.9% 1000 ML 1,000 ML IV SCH (16:59)
[2021-02-21] MEDS: DILAUDID 1 MG/1ML PCA IV PRN ×2 (06:22→07:51)
[2021-02-21] MEDS: Advair Hfa 115/21 Common canister IH SCH ×2 (07:01→19:50)
[2021-02-21] MEDS ORDERED: PHARMACY DOSING REQUIRED: DILAUDID PCA IV PRN (08:31)
[2021-02-21] MEDS ORDERED: DILAUDID 1 MG/1ML PCA IV PRN (08:50)
[2021-02-21] MEDS: ELIQUIS 2.5 MG TABLET PO SCH ×2 (10:05→21:57)
[2021-02-21] MEDS: Lasix 40 MG PO SCH ×2 (10:05→17:30)
[2021-02-21] MEDS ORDERED: Ativan 0.5 MG PO ONE (12:00)
[2021-02-21] MEDS: Sodium Chloride 0.9% 500 ML 500 ML IV SCH (17:40)
[2021-02-21] MEDS: ZOFRAN ODT 4 MG PO PRN (19:32)
[2021-02-22] MEDS: Advair Hfa 115/21 Common canister IH SCH ×2 (06:52→18:51)
[2021-02-22] MEDS: OXYCODONE-ACETAMINOPHEN 10-325 PO PRN ×4 (08:19→21:49)
[2021-02-22 10:50] LABS: Hematocrit 37.1 % (35-47); Hemoglobin 11.2 gm/dl (12.0-16.0); Mean Cell Volume 97.6 fl (78-100); Mean Corpuscular Hemoglobin 29.5 pg (26-32); Mean Corpuscular Hgb Concent. 30.2 g/dl (32-36); Mean Platelet Volume 9.7 fl (7.5-11.0); Platelet Count 313 K/mm3 (150-450); Red Cell Distribution Width 15.9 % (11.5-14.0); White Blood Count 10.1 K/mm3 (4.0-10.5)
[2021-02-22] MEDS: Lasix 40 MG PO SCH ×2 (10:58→16:17)
[2021-02-22] MEDS: ELIQUIS 2.5 MG TABLET PO SCH ×2 (10:58→21:49)
[2021-02-22] MEDS: NEURONTIN 300 MG PO SCH ×3 (10:58→21:49)
[2021-02-22 11:00] LABS: ANION GAP 13.7 MEQ/L (5-15); BLOOD UREA NITROGEN 26 mg/dL (7-17); CHLORIDE 100 mmol/L (98-107); Calcium 9.7 mg/dL (8.4-10.2); Carbon Dioxide 28 mmol/L (22-30); Creatinine 1 0.77 mg/dL (0.52-1.04); EST GLOMERULAR FILTRATION RATE > 60.0 ML/MIN; Glucose 101 mg/dL (74-106); Potassium 4.4 mmol/L (3.5-5.1); SODIUM 137 mmol/L (137-145)
[2021-02-22] MEDS ORDERED: Ativan 2 MG/1 ML VIAL IV ONE (11:00)
[2021-02-22] MEDS: ZOFRAN ODT 4 MG PO PRN (12:51)
--- NOTE | 2021-02-22 12:55 | XRAY ---
Indication: Low back pain radiating both legs. No known injury. Sagittal and axial MRI lumbar spine performed without contrast using T1 and T2 weighted sequences. Comparison: None. CT lumbar spine February 18, 2021 documents 5 lumbar segments. Sagittal MRI images demonstrates normal lumbar alignment/lordosis. Minimal multilevel degenerative disc dehydration signal without disc space loss. Superior T11 segment demonstrates 9 mm vertebral hemangioma. Superior T12 segment demonstrates small Schmorl node. T10-T11 demonstrates minimal opposing endplate degenerative discogenic signal changes, Modic type II. No acute fracture, suspicious bony lesions, or abnormal bone marrow signal. Conus medullaris terminates at inferior L1. Sagittal images through the T12-L3 levels are unremarkable. Axial images of the remaining L3-S1 levels are negative for disc herniation, spinal canal, or foraminal stenosis. L3-L5 facets are symmetric. Mild right L5-S1 degenerative facet arthropathy. Impression: 1. MRI lumbar spine negative for disc herniation or spinal canal stenosis. 2. Incidental small T11 vertebral hemangioma and small T12 Schmorl node.
--- NOTE | 2021-02-22 13:17 | XRAY ---
Indication: Pain and edema upper legs. History of pulmonary embolus. Conventional contrast enhanced CT venogram pelvis performed using 125 cc Isovue 370 contrast. Comparison: CT abdomen/pelvis February 05, 2021. Visualized femoral veins, iliac veins, and distal IVC are normal in course and caliber without filling defect/thrombosis. Very minimal aortoiliac calcifications without aneurysm. Visualized bowel loops appear nonobstructed again with sigmoid diverticulosis and normal appendix. Remaining urinary bladder and uterus unremarkable. No pelvic free fluid/air. Osseous structures again demonstrates mild osteopenia, minimal bilateral hip degenerative joint space narrowing, and old left sacral insufficiency fracture. Impression: 1. CT venogram pelvis negative for thrombosis. 2. Again incidental sigmoid diverticulosis, osteopenia, bilateral hip degenerative joint space narrowing, and old left sacral insufficiency fracture.
[2021-02-22] MEDS: Sodium Chloride 0.9% 500 ML 500 ML IV SCH (21:37)
[2021-02-22] MEDS: PATIENT OWN MEDICATION PO SCH (21:50)
[2021-02-23] MEDS: OXYCODONE-ACETAMINOPHEN 10-325 PO PRN ×2 (05:39→14:34)
[2021-02-23] MEDS: Advair Hfa 115/21 Common canister IH SCH (07:17)
[2021-02-23 08:47] VITALS: BP 120/77; PULSE 88; O2SAT 93
[2021-02-23] MEDS ORDERED: TORAdol 30 mg Injection IV PRN (09:25)
[2021-02-23] MEDS: PATIENT OWN MEDICATION PO SCH (09:58)
[2021-02-23] MEDS: Lasix 40 MG PO SCH (10:00)
[2021-02-23] MEDS: ELIQUIS 2.5 MG TABLET PO SCH (10:00)
[2021-02-23] MEDS: NEURONTIN 300 MG PO SCH ×2 (10:00→14:13)
[2021-02-23] MEDS ORDERED: ELIQUIS 2.5 MG TABLET PO SCH (10:14)
--- NOTE | 2021-02-23 14:16 | XRAY ---
Indication: Leg pain. Conventional contrast enhanced CTA abdominal aorta with bilateral runoff performed using 125 cc Isovue 370 contrast. Two-dimensional sagittal and coronal reformatted images obtained. Additional 3-dimensional reformatted images obtained using a separate workstation. Comparison: None Abdominal aorta, celiac artery, superior mesenteric artery, and inferior mesenteric artery are normal in CTA appearance. Left kidney demonstrates 2 main arteries and the right kidney demonstrates one main renal artery. Very minimal calcifications at the origin of the left superior renal artery. Remaining left inferior renal and right main renal arteries are normal in CTA appearance. Right leg runoff demonstrates very minimal eccentric calcifications in the distal common iliac artery. Remaining internal/external iliac, common femoral, deep femoral, superficial femoral, and popliteal arteries are normal in CTA appearance. Lower leg demonstrates widely patent anterior tibial and peroneal arteries crossing the ankle joint to supply the right foot. Posterior tibial artery is markedly attenuated and tapers off by midcalf level. Left leg runoff demonstrates normal CTA appearance to the common iliac, internal/external iliac, common femoral, deep femoral, superficial femoral, and popliteal arteries. Trifurcation vessels are widely patent with only the anterior and posterior tibial arteries crossing the ankle joint to supply the left foot. Peroneal artery tapers off distally. There is moderate/significant diffuse venous varicosities throughout both legs. Both lower legs also demonstrates moderate cutaneous/subcutaneous soft tissue swelling/edema. Noncontrasted stomach and bowel loops appear nonobstructed. Small hiatal hernia. Previous cholecystectomy. Mild fatty liver. Left kidney appears smaller due to cortical thinning/scarring. 1 cm right mid renal cortical cyst. Urinary bladder is markedly distended with contrast presumed from CT venogram exam one day earlier. No free fluid/air. Remaining pancreas, spleen, adrenal glands, ureters, and uterus unremarkable. Lung bases demonstrates minimal fibrosis/scarring. Heart is borderline enlarged. Osseous structures intact with mild osteopenia. Small fatty umbilical hernia. Impression: 1. Very minimal arteriosclerotic calcifications origin of the left main superior renal artery. Remaining CTA abdominal aorta and major branches are normal. 2. Right leg runoff demonstrates minimal calcifications distal common iliac artery. Remaining CTA right leg normal with 2 vessel runoff into right foot. 3. Left leg runoff is normal with 2 vessel runoff into the left foot. 4. Diffuse bilateral leg venous varicosities and diffuse bilateral lower leg cutaneous/subcutaneous soft tissue swelling/edema. 5. Markedly contrast-filled urinary bladder presumed from CT venogram one day earlier. Cannot exclude urinary bladder outlet obstruction versus neurogenic bladder. 6. Incidental small hiatal hernia, small fatty umbilical hernia, left renal cortical thinning/scarring, tiny right renal cyst, fatty liver, and osteopenia.
== END 2021-02-23 14:52 ==
LOC: ED 22:58 → MED SURG 02-19 00:28
PROVIDERS: ADMIT Family Medicine; ATTEND Family Medicine
DX: M54.5 Low back pain (principal); Z79.899 Other long term (current) drug therapy; I10 Essential (primary) hypertension; J44.9 Chronic obstructive pulmonary disease, unspecified; I73.9 Peripheral vascular disease, unspecified; M79.672 Pain in left foot; Z20.822 Contact with and (suspected) exposure to COVID-19; N28.9 Disorder of kidney and ureter, unspecified
CPT/HCPCS: 36000; 36415; 72148; 72193; 75635; 80048; 80053; 83880; 85025; 85027; 87086; 93268; 94640; 94760; 94762; 97110; 97162; 97530; 99221; 99284; G0378; U0003; 72131; 81001; 96372; J0696; J1170; J1885; J2060; J2360; Q0162; A9270-GY

== ENCOUNTER 2022-08-29 13:40 | Emergency (ER) | payer MEDICARE ==
--- NOTE | 2022-08-29 13:49 | ERPHSYRPT ---
- History of Present Illness Time Seen by Provider: 08/29/22 13:49 Source: patient Exam Limitations: no limitations Physician History: This is a morbidly obese 62-year-old white female patient of Dr. Barclay who was seen by Dr. Villagran yesterday and treated her for cough symptoms with Medrol Dosepak and doxycycline. This was to treat an upper respiratory infection that was likely present. Patient also complained of urine urgency, frequency and dysuria. Urinalysis was performed but the patient did not know what the results of this urinalysis was. That was the main reason why she came to the emergency department. That is, to find out the results of her urinalysis to see if she needed to be on something to treat a urinary tract infection. Patient states that in the last day or 2 she has had pain in her groins and bilateral flank area. Additional history was obtained from the patient as well as review of the patient's labs from yesterday, 08/28/2022. There is no evidence of urinary tract infection however there is blood present within the urine. Kari aceves has a history of hypertension, COPD, gastroesophageal reflux disease and degenerative disc disease. Timing/Duration: yesterday Activites at Onset: none Quality: burning (With urination) Onset Location: generalized flank, groin Pain Radiation: none Severity of Pain-Max: mild (To moderate) Severity of Pain-Current: mild (To moderate) Sexual intercourse history: non-contributory Modifying Factors: Improves With: nothing Associated Symptoms: dysuria, urinary frequency, other (Urinary urgency) Allergies/Adverse Reactions: No Known Drug Allergies Allergy (Verified 08/29/22 13:43) Home Medications: Albuterol 2.5 mg/3 ml Neb [Proventil 2.5 mg/3 ml Neb] 1 amp IH Q4-6HPRN PRN 01/22/21 [History] Fluticasone Propion/Salmeterol [Fluticasone-Salmeterol 250-50] 1 blist IH BID 01/22/21 [History] Ergocalciferol (Vitamin D2) [Vitamin D2] 50,000 unit PO Q7D 06/29/22 [History] Lisinopril 5 mg [Zestril 5 MG] 5 mg PO DAILY 06/29/22 [History] Oxycodone HCl/Acetaminophen [Percocet 10-325 mg Tablet] 1 each PO BIDPRN PRN 06/29/22 [History] Potassium Chloride [Klor-Con M10] 20 meq PO DAILY 06/29/22 [History] Hx Tetanus, Diphtheria Vaccination/Date Given: Yes Hx Influenza Vaccination/Date Given: Yes Hx Pneumococcal Vaccination/Date Given: No Travel Risk - International Travel Have you traveled outside of the country in past 3 weeks: No - Coronavirus Screening Are you exhibiting any of the following symptoms?: No Close contact with a COVID-19 positive Pt in past 14-21 Days: No - Vaccine Status Have you recieved a Covid-19 vaccination: Yes 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: Unknown - Vaccination Dates Date of 2cond Vaccination (if applicable): october 19 2020 Dates if Unknown: october 2020 - Review of Systems Constitutional: No Symptoms Eyes: No Symptoms Ears, Nose, & Throat: No Symptoms Respiratory: No Symptoms Cardiac: No Symptoms Abdominal/Gastrointestinal: No Symptoms Genitourinary Symptoms: Dysuria, Frequency, Urgency Musculoskeletal: No Symptoms Skin: No Symptoms Neurological: No Symptoms Psychological: No Symptoms Endocrine: No Symptoms Hematologic/Lymphatic: No Symptoms Immunological/Allergic: No Symptoms All Other Systems: Reviewed and Negative - Past Medical History Pertinent Past Medical History: Yes Neurological History: Epilepsy, Peripheral Neuropathy ENT History: No Pertinent History Cardiac History: Hypertension Respiratory History: COPD Endocrine Medical History: Other Musculoskeletal History: Degenerative Disk Disease, Osteoarthritis, Other GI Medical History: GERD History: No Pertinent History Psycho-Social History: No Pertinent History Female Reproductive Disorders: No Pertinent History Other Medical History: PMHX: PER PATIENT RECENTLY DX'D WITH AUTOIMMUNE DEFICIENCY AND HAS APPOINTMENT WITH DR GARCIA. FX RIGHT HAND REQUIRING ORIF AND RIGHT FOOT 2017. SEES DR. MAGALLON FOR PAIN MANAGEMENT - ON OXYCODONE AND GABAPENTIN; DR PENDLETON D/T ENLARGED LEFT SIDE OF HEART, DR GUTIERREZ FOR KIDNEY FUNCTION (PATIENT NOT AWARE OF LEVEL BUT STATES LAST VISIT HE STATED IT HAD IMPROVED). SX HX: CHOLECYSTECTOMY, TUBES TIED, BLADDER SURGERY - Past Surgical History Past Surgical History: Yes Neuro Surgical History: No Pertinent History Cardiac: No Pertinent History Respiratory: No Pertinent History Gastrointestinal: Cholecystectomy, Hernia Repair Genitourinary: No Pertinent History Musculoskeletal: No Pertinent History Female Surgical History: Tubal Ligation Other Surgical History: Varicose vein surgery - Social History Smoking Status: Former smoker How long have you smoked: 49 Exposure to second hand smoke: No Drug Use: none Patient Lives Alone: No Significant Family History: no pertinent family hx - Nursing Vital Signs Nursing Vital Signs: Initial Vital Signs Temperature 97.9 F 08/29/22 13:45 Pulse Rate 115 H 08/29/22 13:45 Respiratory Rate 19 08/29/22 13:45 Blood Pressure 109/80 08/29/22 13:45 O2 Sat by Pulse Oximetry 95 08/29/22 13:45 Pain Scale Pain Intensity 10 - Physical Exam General Appearance: no apparent distress, alert, anxiety, obese Eye Exam: PERRL/EOMI, eyes nml inspection Ears, Nose, Throat Exam: normal ENT inspection, moist mucous membranes Neck Exam: normal inspection, non-tender, supple, full range of motion Respiratory Exam: normal breath sounds, lungs clear, airway intact, No chest tenderness, No respiratory distress Cardiovascular Exam: tachycardia (Mild) Gastrointestinal/Abdomen Exam: soft, normal bowel sounds, No tenderness, No guarding, No rebound Pelvic Exam: not done Rectal Exam: not done Back Exam: normal inspection, normal range of motion, CVA tenderness (Bilateral mild), No vertebral tenderness Extremity Exam: normal inspection, normal range of motion, pelvis stable Neurologic Exam: alert, oriented x 3, cooperative, nursing officer II-XII nml as tested, normal mood/affect, nml cerebellar function, nml station & gait, sensation nml Skin Exam: normal color, warm, dry Lymphatic Exam: No adenopathy SpO2 Interpretation: normal O2 Delivery: Room Air - Course Nursing assessment & vital signs reviewed: Yes Ordered Tests: Active Orders 24 hr Category Date Time Status IV Insertion STAT Care 08/29/22 15:05 Active ABDOMEN AND PELVIS W/0 CONTRAS [CT] Stat Exams 08/29/22 14:16 Completed - Progress Progress: re-examined, unchanged Air Movement: good Progress Note: 08/29/22 15:04 This patient's medical issues level of complexity is moderate. This is based on the patient's history, additional history obtained from the , and additional history obtained from review of recent lab work that was drawn as an outpatient. This prompted me to review the results of the urinalysis that was performed on 08/28/2022 and to make the decision to change the antibiotics on this patient. In addition, we will add Pyridium to the drug regimen. In addition, based on the above, I opted to order a CAT scan of the abdomen pelvis. 08/29/22 15:21 CT scan of the abdomen pelvis without contrast shows no renal calculus. There is a massive anterior mesenteric soft tissue mass versus mesenteric "caking". Questionable primary versus metastatic malignancy. There is a new, incompletely visualized right middle lobe interstitial alveolar opacity. There is stable hiatal hernia. Blood Culture(s) Obtained: No Antibiotics given: No Counseled pt/family regarding: lab results, diagnosis, need for follow-up, rad results Medical Desision Making - Independent Historian Additional History obtained from: Spouse - External Record(s) Reviewed Records reviewed as a part of evaluation & management: Clinic - Discussion of managment Reviewed:: Test results (Reviewed with the patient and her spouse) Agreed on:: Treatment plan (Discussed with the patient and her spouse), need for follow-up (Discussed with the patient and her spouse) - Diagnostic Testing Diagnostic Testing: Diagnostic tests were ordered,analyzed, and reviewed by me and used in my medical decision making for this patient. Radiologic studies (if ordered) were read by me initially then discussed with the radiologist . - Risk of complications Low Risk: Low risk of morbidity from additional dx testing or treatment The pt has a mod risk of morbidity or mortality based on: Need for prescription drug management - Departure Departure Disposition: Home Clinical Impression: Hematuria, Flank pain, Mesenteric mass, Right middle lobe pulmonary infiltrate Condition: Stable Critical Care Time: No Referrals: AYSE BARCLAY DO [Primary Care Provider] - Follow up/PCP as directed Additional Instructions: Stop the doxycycline. Take the other antibiotic and Pyridium as prescribed. Drink plenty of fluids. Follow-up with your primary care provider tomorrow by phone to obtain another appointment for further evaluation and management. Prescriptions: Cefdinir 300 mg PO BID #14 cap Phenazopyridine HCl 200 mg [Pyridium 200 mg] 200 mg PO TID #6 tablet
[2022-08-29 13:58] VITALS: O2SAT 95
--- NOTE | 2022-08-29 15:10 | XRAY ---
Indication: Flank pain. Dysuria. Hematuria. Multiple contiguous images obtained through the abdomen and pelvis without contrast using renal stone protocol. Comparison: February 05, 2021 Lung bases demonstrates new incompletely visualized peripheral right middle lobe interstitial alveolar opacity. No effusion. Heart not enlarged. Again small hiatal hernia. No renal calculus or evidence for obstructive uropathy in either system. Stable left renal cortical thinning/scarring. Noncontrasted stomach and bowel loops nonobstructed. Again scattered sigmoid diverticulosis without diverticulitis and cholecystectomy. Pelvis demonstrates new massive anterior mesenteric heterogeneous soft tissue mass versus mesenteric caking measuring at least 7.7 x 20 x 20 cm in greatest AP, transverse, and CC projections. There is extension/communication to include the rectus abdominis muscles. There is subsequent mass effect and elongation of the urinary bladder. Lack of IV contrast precludes further characterization. New tiny perihepatic/perisplenic free fluid may be related. Remaining liver, pancreas, spleen, adrenal glands, kidneys, ureters, bladder, and uterus are unremarkable for noncontrast exam. Again minimal aortoiliac calcifications without AAA. Osseous structures intact. Impression: 1. Continue negative renal calculus or evidence for obstructive uropathy. Stable left renal cortical thinning/scarring. 2. Pelvis demonstrates new massive anterior mesenteric soft tissue mass versus mesenteric caking worrisome for primary versus metastatic malignancy. Tiny perihepatic/perisplenic free fluid may be related. 3. New incompletely visualized right middle lobe interstitial alveolar opacity. 4. Stable small hiatal hernia, sigmoid diverticulosis, and minimal arteriosclerotic disease.
[2022-08-29] MEDS ORDERED: Hydromorphone 1 mg/ml Injection IV ONE (15:45)
[2022-08-29] MEDS ORDERED: Zofran 4 MG/2 ML VIAL IV ONE (15:45)
[2022-08-29] MEDS ORDERED: Zofran 4 MG/2 ML VIAL ONE (16:02)
[2022-08-29] MEDS ORDERED: Hydromorphone 1 mg/ml Injection ONE (16:03)
[2022-08-29 16:09] VITALS: BP 109/84; PULSE 104
== END 2022-08-29 16:40 | disposition home or self-care (01) ==
LOC: ED 13:40
DX: R31.9 Hematuria, unspecified (principal); R10.9 Unspecified abdominal pain; R19.09 Other intra-abdominal and pelvic swelling, mass and lump; R91.8 Other nonspecific abnormal finding of lung field; R30.0 Dysuria; R35.0 Frequency of micturition; R10.2 Pelvic and perineal pain; I10 Essential (primary) hypertension; Z79.891 Long term (current) use of opiate analgesic; Z79.899 Other long term (current) drug therapy
CPT/HCPCS: 36000; 74176; 96374; 96375; 99284; J1170; J2405

== ENCOUNTER 2023-04-27 11:32 | Emergency (ER) | payer MEDICARE ==
--- NOTE | 2023-04-27 11:36 | ERPHSYRPT ---
- History of Present Illness Time Seen by Provider: 04/27/23 12:40 Source: patient Exam Limitations: no limitations Physician History: This is an obese 62-year-old white female patient who is opening up a can of string beans yesterday and accidentally cut the lateral aspect of her fifth digit. Patient is on Coumadin. She had a Band-Aid on it but it kept oozing blood slowly and therefore she came into the emergency room today to have it evaluated and managed. Patient's last tetanus shot was within the last year per her report. She took her Coumadin yesterday before her injury. She has not taken Coumadin today. Timing/Duration: yesterday Quality: painful Severity: mild Location: hands (Right hand fifth digit lateral aspect) Associated Symptoms: denies symptoms Allergies/Adverse Reactions: No Known Drug Allergies Allergy (Verified 04/27/23 11:59) Home Medications: Albuterol 2.5 mg/3 ml Neb [Proventil 2.5 mg/3 ml Neb] 1 amp IH Q4-6HPRN PRN 01/22/21 [History] Ergocalciferol (Vitamin D2) [Vitamin D2] 50,000 unit PO Q7D 06/29/22 [History] Oxycodone HCl/Acetaminophen [Percocet 10-325 mg Tablet] 1 each PO BIDPRN PRN 06/29/22 [History] Potassium Chloride [Klor-Con M10] 20 meq PO DAILY 06/29/22 [History] Hx Tetanus, Diphtheria Vaccination/Date Given: Yes Hx Influenza Vaccination/Date Given: Yes Hx Pneumococcal Vaccination/Date Given: No Travel Risk - International Travel Have you traveled outside of the country in past 3 weeks: No - Coronavirus Screening Are you exhibiting any of the following symptoms?: No Close contact with a COVID-19 positive Pt in past 14-21 Days: No - Vaccine Status Have you recieved a Covid-19 vaccination: Yes Wort 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: 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 - Vaccination Dates Date of 2cond Vaccination (if applicable): october 19 2020 Dates if Unknown: october 2020 - Review of Systems Constitutional: No Symptoms Eyes: No Symptoms Ears, Nose, & Throat: No Symptoms Respiratory: No Symptoms Cardiac: No Symptoms Abdominal/Gastrointestinal: No Symptoms Genitourinary Symptoms: No Symptoms Musculoskeletal: No Symptoms Skin: Other (Laceration right hand fifth digit lateral aspect) Neurological: No Symptoms Psychological: No Symptoms Endocrine: No Symptoms Hematologic/Lymphatic: No Symptoms Immunological/Allergic: No Symptoms All Other Systems: Reviewed and Negative - Past Medical History Pertinent Past Medical History: Yes Neurological History: Seizures ENT History: No Pertinent History Cardiac History: No Pertinent History Respiratory History: COPD Endocrine Medical History: Other Musculoskeletal History: Osteoarthritis GI Medical History: GERD History: No Pertinent History Psycho-Social History: No Pertinent History Female Reproductive Disorders: No Pertinent History Other Medical History: PATIENT WITH SEVERE PES PLANUS LEFT WITH WEIGHT-BEARING MEDIAL ASPECT OF TALUS. MORBID OBESITY. HX OF KIDNEY DISEASE BUT STATES HIM MANAGER SAID HER KIDNEYS ARE "FAIR" BUT HASN'T SEEN HIM FOR OVER A YEAR. BENIGN CYST LEFT BREAST. - Past Surgical History Past Surgical History: Yes Neuro Surgical History: No Pertinent History Cardiac: No Pertinent History Respiratory: No Pertinent History Gastrointestinal: Cholecystectomy, Hernia Repair Genitourinary: No Pertinent History Musculoskeletal: No Pertinent History Female Surgical History: Tubal Ligation Other Surgical History: Varicose vein surgery. metal plate in hand. bladder surgery - Social History Smoking Status: Former smoker How long have you smoked: 49 Exposure to second hand smoke: No Drug Use: none Patient Lives Alone: No Significant Family History: no pertinent family hx - Nursing Vital Signs Nursing Vital Signs: Initial Vital Signs Temperature 98.8 F 04/27/23 11:51 Pulse Rate 65 04/27/23 11:51 Blood Pressure 111/74 04/27/23 11:51 O2 Sat by Pulse Oximetry 93 L 04/27/23 11:51 Pain Scale Pain Intensity 3 - Physical Exam General Appearance: no apparent distress, alert, obese Eye Exam: PERRL/EOMI, eyes nml inspection Ears, Nose, Throat Exam: normal ENT inspection, moist mucous membranes Neck Exam: normal inspection, non-tender, supple, full range of motion Respiratory Exam: airway intact, No chest tenderness, No respiratory distress Gastrointestinal/Abdomen Exam: No tenderness Rectal Exam: not done Back Exam: normal inspection, normal range of motion, No CVA tenderness, No vertebral tenderness Extremity Exam: normal range of motion, pelvis stable, lacerations (V-shaped superficial laceration lateral aspect right fifth digit) Neurologic Exam: alert, oriented x 3, cooperative, goodwill representative II-XII nml as tested, normal mood/affect, nml cerebellar function, nml station & gait, sensation nml Skin Exam: laceration Lymphatic Exam: No adenopathy (As described above) SpO2 Interpretation: borderline oxygenation O2 Delivery: Room Air Procedures - Laceration/Wound Repair Right Lateral Finger Time of Procedure: 12:45 Wound Location: Right, hand (Lateral fifth digit) Wound's Depth, Shape: superficial, flap (Small half centimeter by half centimeter "V" shaped) Wound Explored: clean (Wound explored to base in a bloodless field no foreign body noted) Irrigated: Yes Hibiclens Prep: Yes Wound Repaired With: Steri-strips, Dermabond - Course Nursing assessment & vital signs reviewed: Yes - Progress Progress: improved Progress Note: 04/27/23 13:01 This patient's medical issue is 1 of low complexity. Level complex in the work- up performed is based on review of the patient's past medical history, review the patient medication list, review the patient's drug allergy list, history of present illness and physical findings on examination. Patient does not require laboratory radiographic studies. Counseled pt/family regarding: diagnosis Medical Desision Making - Diagnostic Testing Diagnostic test were ordered, analyzed, and reviewed by me: No - Risk of complications Low Risk: Low risk of morbidity from additional dx testing or treatment - Departure Departure Disposition: Home Clinical Impression: Finger laceration Condition: Stable Critical Care Time: No Referrals: [facility] [LOCATION] - Follow up/PCP as directed Additional Instructions: Stop your Coumadin. Restart on the evening of 04/29/2023. Remove top pressure dressing from this site on the evening of 04/29/2023. You may then rinse the site off daily thereafter. Recover with bandage. Leave the Steri-Strips in place until they fall off on their own.
[2023-04-27 11:59] VITALS: BP 111/74; PULSE 65; TEMP 98.8; O2SAT 93
== END 2023-04-27 13:11 | disposition home or self-care (01) ==
LOC: ED 11:32
DX: S61.216A Laceration without foreign body of right little finger without damage to nail, initial encounter (principal); W26.8XXA Contact with other sharp object(s), not elsewhere classified, initial encounter; Y93.G1 Activity, food preparation and clean up; Z79.01 Long term (current) use of anticoagulants; Z79.891 Long term (current) use of opiate analgesic; Z79.899 Other long term (current) drug therapy
CPT/HCPCS: 12001; 99281

== ENCOUNTER 2023-09-23 14:15 | Observation (INO) | payer MEDICARE ==
[2023-09-23] MEDS ORDERED: DUONEB 0.5-3 MG/3 ml Neb IH ONE (14:51)
[2023-09-23] MEDS: DUONEB 0.5-3 MG/3 ml Neb IH ONE (14:55)
--- NOTE | 2023-09-23 15:03 | ERPHSYRPT ---
- History of Present Illness Time Seen by Provider: 09/23/23 14:31 Source: patient Exam Limitations: no limitations Patient Subjective Stated Complaint: C/O sore throat and cough since Sunday Triage Nursing Assessment: Patient ambulated back to ER with a rolling walker. Patient SOB with exertion. Non-productive cough present. 02 sats 89% on room air; 02 @ 2L per N/C applied and 02 sats increased to 95%. Wheezes and rales noted. Physician History: 63-year-old morbidly obese female with history of COPD, DVT on Coumadin presented in the ER with 4 days history of cough congestion. Patient reported started as a nasal drainage/congestion followed by sore throat and now having cough productive of clear to yellow sputum with increasing shortness of breath. Patient reports tightness in the chest and wheezing. Also reports low-grade fever and a temperature of 100.3 on presentation in the ER. Denies any known sick contact. Reports getting short of breath with minimal activity. Patient oxygen saturation is 88/89% on room air on presentation, placed on 2 L and improved to 95%. Allergies/Adverse Reactions: No Known Drug Allergies Allergy (Verified 09/23/23 14:30) Home Medications: Albuterol 2.5 mg/3 ml Neb [Proventil 2.5 mg/3 ml Neb] 1 amp IH Q4-6HPRN PRN 01/22/21 [History] Ergocalciferol (Vitamin D2) [Vitamin D2] 50,000 unit PO DIRECTIONS UNKNOWN 06/29/22 [History] Oxycodone HCl/Acetaminophen [Percocet 10-325 mg Tablet] 1 each PO BIDPRN PRN 06/29/22 [History] Potassium Chloride [Klor-Con M10] 20 meq PO DAILY 06/29/22 [History] Hx Tetanus, Diphtheria Vaccination/Date Given: Yes Hx Influenza Vaccination/Date Given: Yes Hx Pneumococcal Vaccination/Date Given: Yes Immunizations Up to Date: Yes Travel Risk - International Travel Have you traveled outside of the country in past 3 weeks: No - Coronavirus Screening Are you exhibiting any of the following symptoms?: Yes Symptoms: Fever, Cough: New Onset, Shortness of Breath Close contact with a COVID-19 positive Pt in past 14-21 Days: No - Vaccine Status Have you recieved a Covid-19 vaccination: Yes Fish Flipper: Unknown - Vaccination Dates Dates if Unknown: october 2020 - Review of Systems Constitutional: No Symptoms Eyes: No Symptoms Ears, Nose, & Throat: Nose Congestion, Throat Swelling Respiratory: Cough, Wheezing Cardiac: Edema Abdominal/Gastrointestinal: No Symptoms Genitourinary Symptoms: No Symptoms Musculoskeletal: No Symptoms Skin: Skin Lesions Neurological: No Symptoms Endocrine: No Symptoms Hematologic/Lymphatic: No Symptoms - Past Medical History Pertinent Past Medical History: Yes Neurological History: Seizures ENT History: No Pertinent History Cardiac History: No Pertinent History Respiratory History: COPD Endocrine Medical History: Other Musculoskeletal History: Osteoarthritis GI Medical History: GERD History: No Pertinent History Psycho-Social History: No Pertinent History Female Reproductive Disorders: No Pertinent History Other Medical History: PATIENT WITH SEVERE PES PLANUS LEFT WITH WEIGHT-BEARING MEDIAL ASPECT OF TALUS, MORBID OBESITY, blood clots - Past Surgical History Past Surgical History: Yes Neuro Surgical History: No Pertinent History Cardiac: No Pertinent History Respiratory: No Pertinent History Gastrointestinal: Cholecystectomy, Hernia Repair Genitourinary: No Pertinent History Musculoskeletal: No Pertinent History Female Surgical History: Tubal Ligation Other Surgical History: Varicose vein surgery. metal plate in hand. bladder surgery - Social History Smoking Status: Former smoker How long have you smoked: 49 Exposure to second hand smoke: No Drug Use: none Patient Lives Alone: No Significant Family History: no pertinent family hx - Nursing Vital Signs Nursing Vital Signs: Initial Vital Signs Pulse Rate 95 H 09/23/23 14:41 Respiratory Rate 18 09/23/23 14:41 Blood Pressure 180/110 09/23/23 14:41 O2 Sat by Pulse Oximetry 98 09/23/23 14:41 Pain Scale Pain Intensity 4 - Physical Exam General Appearance: no apparent distress, alert Eye Exam: PERRL/EOMI Ears, Nose, Throat Exam: hearing grossly normal, nasal congestion, pharyngeal erythema Neck Exam: normal inspection, non-tender, supple, full range of motion Respiratory Exam: diminished breath sounds, rhonchi, wheezing Cardiovascular/Chest Exam: normal heart sounds, regular rate/rhythm Abdominal/Gastrointestinal Exam: soft, normal bowel sounds, No tenderness Extremity Exam: non-tender, normal range of motion Neurologic Exam: alert, oriented x 3, cooperative Skin Exam: normal color SpO2 Interpretation: hypoxic, O2 applied SpO2: 89 O2 Delivery: Nasal Cannula - Course EKG Interpreted by Me: RATE ([id number]), Sinus Rhythm, NORMAL AXIS, NORMAL QRS Ordered Tests: Active Orders 24 hr Category Date Time Status Personal Driver STAT Care 09/23/23 14:58 Active EKG-ER Only STAT Care 09/23/23 14:58 Active IV Insertion STAT Care 09/23/23 14:58 Active Oxygen-ED Only Nasal Cannula 2 lpm Care 09/23/23 14:58 Active CHEST 1 VIEW (PORTABLE) Stat Exams 09/23/23 14:45 Taken BLOOD CULTURE Stat Lab 09/23/23 15:00 Received CBC W DIFF Stat Lab 09/23/23 15:00 Completed CMP Stat Lab 09/23/23 15:00 Completed Lactic Acid Stat Lab 09/23/23 14:58 Completed MAGNESIUM Stat Lab 09/23/23 15:00 Completed NT PRO BNPII Stat Lab 09/23/23 15:00 Completed PROCALCITONIN Stat Lab 09/23/23 15:00 Completed PROTIME WITH INR Stat Lab 09/23/23 15:00 Completed TROPONIN Q4H Lab 09/23/23 15:00 Completed TROPONIN Q4H Lab 09/23/23 19:00 Ordered TROPONIN Q4H Lab 09/23/23 23:00 Ordered Respiratory Therapy Assessment DAILY RT 09/23/23 14:52 Active Transfer Order Routine Transfer 09/23/23 Ordered Medication Summary Discontinued Medications Generic Name Dose Route Start Last Admin Trade Name Freq PRN Reason Stop Dose Admin Albuterol/Ipratropium 3 ml 09/23/23 14:52 09/23/23 14:55 Ipratropium/Albuterol Sulfate 3 Ml Ampul.Neb IH 09/23/23 14:53 3 ml STAT ONE Administration Albuterol/Ipratropium Confirm 09/23/23 14:51 Ipratropium/Albuterol Sulfate 3 Ml Ampul.Neb Administered 09/23/23 14:52 Dose 3 ml IH .STK-MED ONE Methylprednisolone Sodium 0 mg 09/23/23 14:58 09/23/23 15:14 Succinate 125 mg/ Sterile IV 09/23/23 14:59 125 mg Water 2 ml STAT ONE Administration Methylprednisolone Sodium Succinate Confirm 09/23/23 15:07 Methylprednis Sod Succ 125 Mg/2 Ml Vial Administered 09/23/23 15:08 Dose 125 mg .ROUTE .STK-MED ONE Sterile Water Confirm 09/23/23 15:07 Water For Injection,Sterile 10 Ml Vial Administered 09/23/23 15:08 Dose 10 ml IJ .STK-MED ONE Lab/Rad Data: Laboratory Result Diagrams 09/23/23 15:00 09/23/23 15:00 Laboratory Results 09/23/23 09/23/23 09/23/23 Range/Units 15:00 15:00 15:00 WBC (4.0-10.5) x10^3/uL RBC (4.1-5.4) x10^6/uL Hgb (12.0-16.0) g/dL Hct (35-47) % MCV (78-100) fL MCH (26-32) pg MCHC (32-36) g/dL RDW (11.5-14.0) % Plt Count (150-450) x10^3/uL MPV (7.5-11.0) fL Gran % (36.0-66.0) % Immature Gran % (Auto) (0.00-0.4) % Nucleat RBC Rel Count (0.00-0.1) % Eos # (Auto) (0-0.5) x10^3/uL Immature Gran # (Auto) (0.00-0.03) x10^3u/L Absolute Lymphs (auto) (1.0-4.6) x10^3/uL Absolute Monos (auto) (0.0-1.3) x10^3/uL Absolute Nucleated RBC (0.00-0.01) x10^3u/L Lymphocytes % (24.0-44.0) % Monocytes % (0.0-12.0) % Eosinophils % (0.00-5.0) % Basophils % (0.0-0.4) % Absolute Granulocytes (1.4-6.9) x10^3/uL Basophils # (0-0.4) x10^3/uL PT (9.4-12.5) SECONDS INR (0.8-3.0) Sodium 141 (135-145) mmol/L Potassium 3.8 (3.5-5.1) mmol/L Chloride 103 (98-107) mmol/L Carbon Dioxide 30 (22-30) mmol/L Anion Gap 11.4 (5-15) MEQ/L BUN 12 (7-17) mg/dL Creatinine 0.59 (0.52-1.04) mg/dL Estimated GFR 100.6 ML/MIN Glucose 103 (74-106) mg/dL Lactic Acid (0.4-2.0) Calcium 9.2 (8.4-10.2) mg/dL Magnesium (1.6-2.3) mg/dL Total Bilirubin 0.50 (0.2-1.3) mg/dL AST 29 (14-36) U/L ALT 19 (0-35) U/L Alkaline Phosphatase 108 (38-126) U/L Troponin I < 0.012 (0.000-0.034) ng/mL NT-Pro-B Natriuret Pep (<300) pg/mL Serum Total Protein 8.2 (6.3-8.2) g/dL Albumin 4.3 (3.5-5.0) g/dL Procalcitonin 0.050 (0.030-0.080) ng/mL Influenza Type A Ag (NEGATIVE) Influenza Type B Ag (NEGATIVE) RSV (PCR) (NEGATIVE) SARS-CoV-2 (PCR) (NEGATIVE) Group A Strep Antibody (NEGATIVE) 09/23/23 09/23/23 09/23/23 Range/Units 15:00 15:00 15:00 WBC 5.3 (4.0-10.5) x10^3/uL RBC 4.73 (4.1-5.4) x10^6/uL Hgb 13.1 (12.0-16.0) g/dL Hct 43.2 (35-47) % MCV 91.3 (78-100) fL MCH 27.7 (26-32) pg MCHC 30.3 L (32-36) g/dL RDW 16.0 H (11.5-14.0) % Plt Count 257 (150-450) x10^3/uL MPV 10.2 (7.5-11.0) fL Gran % 71.7 H (36.0-66.0) % Immature Gran % (Auto) 0.4 (0.00-0.4) % Nucleat RBC Rel Count 0.0 (0.00-0.1) % Eos # (Auto) 0.01 (0-0.5) x10^3/uL Immature Gran # (Auto) 0.02 (0.00-0.03) x10^3u/L Absolute Lymphs (auto) 1.07 (1.0-4.6) x10^3/uL Absolute Monos (auto) 0.37 (0.0-1.3) x10^3/uL Absolute Nucleated RBC 0.00 (0.00-0.01) x10^3u/L Lymphocytes % 20.3 L (24.0-44.0) % Monocytes % 7.0 (0.0-12.0) % Eosinophils % 0.2 (0.00-5.0) % Basophils % 0.4 (0.0-0.4) % Absolute Granulocytes 3.77 (1.4-6.9) x10^3/uL Basophils # 0.02 (0-0.4) x10^3/uL PT 25.4 H (9.4-12.5) SECONDS INR 2.47 (0.8-3.0) Sodium (135-145) mmol/L Potassium (3.5-5.1) mmol/L Chloride (98-107) mmol/L Carbon Dioxide (22-30) mmol/L Anion Gap (5-15) MEQ/L BUN (7-17) mg/dL Creatinine (0.52-1.04) mg/dL Estimated GFR ML/MIN Glucose (74-106) mg/dL Lactic Acid (0.4-2.0) Calcium (8.4-10.2) mg/dL Magnesium 2.1 (1.6-2.3) mg/dL Total Bilirubin (0.2-1.3) mg/dL AST (14-36) U/L ALT (0-35) U/L Alkaline Phosphatase (38-126) U/L Troponin I (0.000-0.034) ng/mL NT-Pro-B Natriuret Pep 748 (<300) pg/mL Serum Total Protein (6.3-8.2) g/dL Albumin (3.5-5.0) g/dL Procalcitonin (0.030-0.080) ng/mL Influenza Type A Ag (NEGATIVE) Influenza Type B Ag (NEGATIVE) RSV (PCR) (NEGATIVE) SARS-CoV-2 (PCR) (NEGATIVE) Group A Strep Antibody (NEGATIVE) 09/23/23 09/23/23 Range/Units 14:58 14:35 WBC (4.0-10.5) x10^3/uL RBC (4.1-5.4) x10^6/uL Hgb (12.0-16.0) g/dL Hct (35-47) % MCV (78-100) fL MCH (26-32) pg MCHC (32-36) g/dL RDW (11.5-14.0) % Plt Count (150-450) x10^3/uL MPV (7.5-11.0) fL Gran % (36.0-66.0) % Immature Gran % (Auto) (0.00-0.4) % Nucleat RBC Rel Count (0.00-0.1) % Eos # (Auto) (0-0.5) x10^3/uL Immature Gran # (Auto) (0.00-0.03) x10^3u/L Absolute Lymphs (auto) (1.0-4.6) x10^3/uL Absolute Monos (auto) (0.0-1.3) x10^3/uL Absolute Nucleated RBC (0.00-0.01) x10^3u/L Lymphocytes % (24.0-44.0) % Monocytes % (0.0-12.0) % Eosinophils % (0.00-5.0) % Basophils % (0.0-0.4) % Absolute Granulocytes (1.4-6.9) x10^3/uL Basophils # (0-0.4) x10^3/uL PT (9.4-12.5) SECONDS INR (0.8-3.0) Sodium (135-145) mmol/L Potassium (3.5-5.1) mmol/L Chloride (98-107) mmol/L Carbon Dioxide (22-30) mmol/L Anion Gap (5-15) MEQ/L BUN (7-17) mg/dL Creatinine (0.52-1.04) mg/dL Estimated GFR ML/MIN Glucose (74-106) mg/dL Lactic Acid 1.0 (0.4-2.0) Calcium (8.4-10.2) mg/dL Magnesium (1.6-2.3) mg/dL Total Bilirubin (0.2-1.3) mg/dL AST (14-36) U/L ALT (0-35) U/L Alkaline Phosphatase (38-126) U/L Troponin I (0.000-0.034) ng/mL NT-Pro-B Natriuret Pep (<300) pg/mL Serum Total Protein (6.3-8.2) g/dL Albumin (3.5-5.0) g/dL Procalcitonin (0.030-0.080) ng/mL Influenza Type A Ag NEGATIVE (NEGATIVE) Influenza Type B Ag NEGATIVE (NEGATIVE) RSV (PCR) POSITIVE A (NEGATIVE) SARS-CoV-2 (PCR) NEGATIVE (NEGATIVE) Group A Strep Antibody NOT DETECTED (NEGATIVE) - Progress Progress: improved, re-examined Air Movement: good Progress Note: 09/23/23 17:12 EXTR 3-year-old is evaluated for cough congestion patient has history of COPD. Patient was hypoxic, placed on 2 L oxygen with saturation improved from 88 to 95%. She is given DuoNeb and Solu-Medrol. Chest x-ray showed no acute cardiopulmonary findings reviewed by me, official report is pending. Lab work showed normal white count, unremarkable chemistries, normal lactate. Patient has a positive RSV. I believe she has a combination of COPD exacerbation triggered by RSV, since she is on 2 L oxygen and does not use oxygen at home, she needs to be observed and slowly weaned off of oxygen. Discussed with Dr Valdes Hospitalist, reviewed history, workup and agreed with admission. I have shared the results of workup with patient and recommended admission which she understands and agrees. 09/23/23 17:15 Blood Culture(s) Obtained: Yes Antibiotics given: No Discussed with Dr.: Other ( ) Will see patient in: hospital (observation) Counseled pt/family regarding: lab results, diagnosis, need for follow-up, rad results Medical Desision Making - Discussion of managment Care discussed with:: hospitalist Agreed on:: Treatment plan, place in obs Will see patient: in hospital - Diagnostic Testing Diagnostic test were ordered, analyzed, and reviewed by me: Yes Radiological Interpretation: Interpreted by me, Reviewed by me - Risk of complications The pt has a high risk of morbidity or mortality based on: Decision regarding hospitilization or escalation of hosp level of care - Departure Departure Disposition: Observation Clinical Impression: Acute bronchitis due to respiratory syncytial virus (RSV), COPD exacerbation, Hypoxia Condition: Stable Critical Care Time: No [facility]errals: [facility]] - Follow up/PCP as directed Instructions: Chronic Obstructive Pulmonary Disease
[2023-09-23 15:06] LABS: Group A Strep NOT DETECTED (NEGATIVE)
[2023-09-23] MEDS ORDERED: Sterile H2O 10 ml IJ ONE ×2 (15:07→21:48)
[2023-09-23] MEDS ORDERED: solu-MEDROL ONE ×2 (15:07→21:47)
[2023-09-23] MEDS: solu-MEDROL 125 MG, Sterile H2O 10 ml 2 ML IV ONE (15:14)
[2023-09-23 15:16] LABS: INFLUENZA A NEGATIVE (NEGATIVE); INFLUENZA B NEGATIVE (NEGATIVE); SARS-CoV-2 Xpert Express NEGATIVE (NEGATIVE)
[2023-09-23 15:20] LABS: Absolute Neutrophil Ct (ANC) 3.77 x10^3/uL (1.4-6.9); BASOPHIL % 0.4 % (0.0-0.4); Basophil (Absolute #) 0.02 x10^3/uL (0-0.4); Eosinophil % 0.2 % (0.00-5.0); Eosinophil (Absolute #) 0.01 x10^3/uL (0-0.5); Hematocrit 43.2 % (35-47); Hemoglobin 13.1 g/dL (12.0-16.0); IMMATURE GRAN # 0.02 x10^3u/L (0.00-0.03); IMMATURE GRAN % 0.4 % (0.00-0.4); Lymphocyte (Absolute #) 1.07 x10^3/uL (1.0-4.6); Lymphocytes % 20.3 % (24.0-44.0); Mean Cell Volume 91.3 fL (78-100); Mean Corpuscular Hemoglobin 27.7 pg (26-32); Mean Corpuscular Hgb Concent. 30.3 g/dL (32-36); Mean Platelet Volume 10.2 fL (7.5-11.0); Monocyte (Absolute #) 0.37 x10^3/uL (0.0-1.3); Neutrophil % 71.7 % (36.0-66.0); Platelet Count 257 x10^3/uL (150-450); Red Blood Count 4.73 x10^6/uL (4.1-5.4); White Blood Count 5.3 x10^3/uL (4.0-10.5)
[2023-09-23 15:20] LABS: RESPIRATORY SYNCTIAL VIRUS POSITIVE (NEGATIVE)
[2023-09-23 15:35] LABS: INR 2.47 (0.8-3.0); PROTIME 25.4 SECONDS (9.4-12.5)
[2023-09-23 15:51] LABS: MAGNESIUM 2.1 mg/dL (1.6-2.3)
[2023-09-23 16:04] LABS: ALBUMIN 4.3 g/dL (3.5-5.0); ANION GAP 11.4 MEQ/L (5-15); BILIRUBIN,TOTAL 0.5 mg/dL (0.2-1.3); Calcium 9.2 mg/dL (8.4-10.2); Creatinine 1 0.59 mg/dL (0.52-1.04); EST GLOMERULAR FILTRATION RATE 100.6 ML/MIN; Potassium 3.8 mmol/L (3.5-5.1); Total Protein 8.2 g/dL (6.3-8.2)
--- NOTE | 2023-09-23 18:00 | PCM.HP ---
History of Present Illness - Chief Complaint Chief Complaint: Cough, dyspnea Date: 09/23/23 (17:55) History of Present Illness: is a 63 year old female who is admitted with cold symptoms that started on Sunday with sore throat. She has had fever to 100.3 She has a cough productive of clear phlegm. She has dyspnea on exertion and has been wheezing. She complains of sharp pain LLQ without radiation. No provocative or palliative factors. She has had nausea and dry heaves. She has had urinary frequency. No edema. She has had diarrhea for 4 days and passed a small amount of blood in stool. No other current symptoms. PMH includes COPD, Seizure disorder, GERD, History of DVT on Coumadin and morbid obesity. - Review of Systems Constitutional: Fever, Fatigue, No Chills Eyes: No Symptoms Ears, Nose, & Throat: Nose Congestion, Painful Swallowing Respiratory: Cough, Short Of Breath, Wheezing, No Orthopnea Cardiac: No Symptoms Abdominal/Gastrointestinal: Abdominal Pain, Nausea, Vomiting, Diarrhea Genitourinary Symptoms: Frequency, No Dysuria, No Hematuria Musculoskeletal: No Symptoms Skin: No Symptoms Neurological: No Symptoms Psychological: No Symptoms Endocrine: No Symptoms Hematologic/Lymphatic: No Symptoms Immunological/Allergic: No Symptoms All Other Systems: Reviewed and Negative Medications & Allergies Home Medications: Home Medication List Albuterol 2.5 mg/3 ml Neb [Proventil 2.5 mg/3 ml Neb] 1 amp IH Q4-6HPRN PRN 01/22/21 [History Confirmed 09/23/23] Furosemide 40 mg PO TID 30 Days #90 tablet 02/08/21 [Rx Confirmed 09/23/23] Gabapentin [Neurontin ] 300 mg PO TID capsule 02/23/21 [Rx Confirmed 09/23/23] Ergocalciferol (Vitamin D2) [Vitamin D2] 50,000 unit PO DIRECTIONS UNKNOWN 06/29/22 [History Confirmed 09/23/23] Oxycodone HCl/Acetaminophen [Percocet 10-325 mg Tablet] 1 each PO BIDPRN PRN 06/29/22 [History Confirmed 09/23/23] Potassium Chloride [Klor-Con M10] 20 meq PO DAILY 06/29/22 [History Confirmed 09/23/23] Warfarin Sodium 5 mg PO DAILY 90 Days #103 tablet 06/20/23 [Rx Confirmed 09/23/23] Allergies/Adverse Reactions: Allergies Allergy/AdvReac Type Severity Reaction Status Date / Time No Known Drug Allergies Allergy Verified 09/23/23 14:30 - Past Medical History Past Medical History: Yes Neurological History: Seizures ENT History: No Pertinent History Cardiac History: No Pertinent History Respiratory History: COPD Endocrine Medical History: Other Musculoskelatal History: Osteoarthritis GI Medical History: GERD History: No Pertinent History Pyscho-Social History: No Pertinent History Reproductive Disorders: No Pertinent History Comment: PATIENT WITH SEVERE PES PLANUS LEFT WITH WEIGHT-BEARING MEDIAL ASPECT OF TALUS, MORBID OBESITY, blood clots - Past Surgical History Past Surgical History: Yes Neuro Surgical History: No Pertinent History Cardiac History: No Pertinent History Respiratory Surgery: No Pertinent History GI Surgical History: Cholecystectomy, Hernia Repair Genitourinary Surgical Hx: No Pertinent History Musculskeletal Surgical Hx: No Pertinent History Female Surgical History: Tubal Ligation Other Surgical History: Varicose vein surgery. metal plate in hand. bladder surgery Significant Family History: no pertinent family hx - Social History Smoking Status: Former smoker How long have you smoked: 49 Exposure to second hand smoke: No Alcohol: None Drug Use: none - Physical Exam Vital Signs: Vital Signs - 24 hr Temp Pulse Resp BP BP Pulse Ox 09/23/23 17:27 89 L 09/23/23 16:30 74 15 129/79 97 09/23/23 16:00 71 17 142/90 99 09/23/23 15:30 81 13 128/87 98 09/23/23 15:20 89 21 100 09/23/23 15:10 88 16 97 09/23/23 15:02 88 31 H 100 09/23/23 14:55 87 21 98 09/23/23 14:46 100.4 F 90 30 H 180/110 89 L 09/23/23 14:41 95 H 18 180/110 98 General Appearance: mild distress Neurologic Exam: alert, oriented x 3, cooperative, daylight driller II-XII nml as tested Eye Exam: PERRL/EOMI, eyes nml inspection Ears, Nose, Throat Exam: normal ENT inspection Neck Exam: normal inspection, non-tender, supple, full range of motion Respiratory Exam: accessory muscle use, rhonchi, wheezing Cardiovascular Exam: regular rate/rhythm, normal heart sounds Gastrointestinal/Abdomen Exam: soft, normal bowel sounds, No tenderness Pelvic Exam: not done Rectal Exam: deferred Extremity Exam: normal inspection Skin Exam: normal color Lymphatic Exam: No adenopathy Results - Labs Lab/Micro Results: Lab Results-Last 24 Hours 09/23/23 09/23/23 09/23/23 Range/Units 14:35 14:58 15:00 WBC 5.3 (4.0-10.5) x10^3/uL RBC 4.73 (4.1-5.4) x10^6/uL Hgb 13.1 (12.0-16.0) g/dL Hct 43.2 (35-47) % MCV 91.3 (78-100) fL MCH 27.7 (26-32) pg MCHC 30.3 L (32-36) g/dL RDW 16.0 H (11.5-14.0) % Plt Count 257 (150-450) x10^3/uL MPV 10.2 (7.5-11.0) fL Gran % 71.7 H (36.0-66.0) % Immature Gran % (Auto) 0.4 (0.00-0.4) % Nucleat RBC Rel Count 0.0 (0.00-0.1) % Eos # (Auto) 0.01 (0-0.5) x10^3/uL Immature Gran # (Auto) 0.02 (0.00-0.03) x10^3u/L Absolute Lymphs (auto) 1.07 (1.0-4.6) x10^3/uL Absolute Monos (auto) 0.37 (0.0-1.3) x10^3/uL Absolute Nucleated RBC 0.00 (0.00-0.01) x10^3u/L Lymphocytes % 20.3 L (24.0-44.0) % Monocytes % 7.0 (0.0-12.0) % Eosinophils % 0.2 (0.00-5.0) % Basophils % 0.4 (0.0-0.4) % Absolute Granulocytes 3.77 (1.4-6.9) x10^3/uL Basophils # 0.02 (0-0.4) x10^3/uL PT (9.4-12.5) SECONDS INR (0.8-3.0) Sodium (135-145) mmol/L Potassium (3.5-5.1) mmol/L Chloride (98-107) mmol/L Carbon Dioxide (22-30) mmol/L Anion Gap (5-15) MEQ/L BUN (7-17) mg/dL Creatinine (0.52-1.04) mg/dL Estimated GFR ML/MIN Glucose (74-106) mg/dL Lactic Acid 1.0 (0.4-2.0) Calcium (8.4-10.2) mg/dL Magnesium (1.6-2.3) mg/dL Total Bilirubin (0.2-1.3) mg/dL AST (14-36) U/L ALT (0-35) U/L Alkaline Phosphatase (38-126) U/L Troponin I (0.000-0.034) ng/mL NT-Pro-B Natriuret Pep (<300) pg/mL Serum Total Protein (6.3-8.2) g/dL Albumin (3.5-5.0) g/dL Procalcitonin (0.030-0.080) ng/mL Influenza Type A Ag NEGATIVE (NEGATIVE) Influenza Type B Ag NEGATIVE (NEGATIVE) RSV (PCR) POSITIVE A (NEGATIVE) SARS-CoV-2 (PCR) NEGATIVE (NEGATIVE) Group A Strep Antibody NOT DETECTED (NEGATIVE) 09/23/23 09/23/23 09/23/23 Range/Units 15:00 15:00 15:00 WBC (4.0-10.5) x10^3/uL RBC (4.1-5.4) x10^6/uL Hgb (12.0-16.0) g/dL Hct (35-47) % MCV (78-100) fL MCH (26-32) pg MCHC (32-36) g/dL RDW (11.5-14.0) % Plt Count (150-450) x10^3/uL MPV (7.5-11.0) fL Gran % (36.0-66.0) % Immature Gran % (Auto) (0.00-0.4) % Nucleat RBC Rel Count (0.00-0.1) % Eos # (Auto) (0-0.5) x10^3/uL Immature Gran # (Auto) (0.00-0.03) x10^3u/L Absolute Lymphs (auto) (1.0-4.6) x10^3/uL Absolute Monos (auto) (0.0-1.3) x10^3/uL Absolute Nucleated RBC (0.00-0.01) x10^3u/L Lymphocytes % (24.0-44.0) % Monocytes % (0.0-12.0) % Eosinophils % (0.00-5.0) % Basophils % (0.0-0.4) % Absolute Granulocytes (1.4-6.9) x10^3/uL Basophils # (0-0.4) x10^3/uL PT 25.4 H (9.4-12.5) SECONDS INR 2.47 (0.8-3.0) Sodium (135-145) mmol/L Potassium (3.5-5.1) mmol/L Chloride (98-107) mmol/L Carbon Dioxide (22-30) mmol/L Anion Gap (5-15) MEQ/L BUN (7-17) mg/dL Creatinine (0.52-1.04) mg/dL Estimated GFR ML/MIN Glucose (74-106) mg/dL Lactic Acid (0.4-2.0) Calcium (8.4-10.2) mg/dL Magnesium 2.1 (1.6-2.3) mg/dL Total Bilirubin (0.2-1.3) mg/dL AST (14-36) U/L ALT (0-35) U/L Alkaline Phosphatase (38-126) U/L Troponin I < 0.012 (0.000-0.034) ng/mL NT-Pro-B Natriuret Pep 748 (<300) pg/mL Serum Total Protein (6.3-8.2) g/dL Albumin (3.5-5.0) g/dL Procalcitonin (0.030-0.080) ng/mL Influenza Type A Ag (NEGATIVE) Influenza Type B Ag (NEGATIVE) RSV (PCR) (NEGATIVE) SARS-CoV-2 (PCR) (NEGATIVE) Group A Strep Antibody (NEGATIVE) 09/23/23 09/23/23 Range/Units 15:00 15:00 WBC (4.0-10.5) x10^3/uL RBC (4.1-5.4) x10^6/uL Hgb (12.0-16.0) g/dL Hct (35-47) % MCV (78-100) fL MCH (26-32) pg MCHC (32-36) g/dL RDW (11.5-14.0) % Plt Count (150-450) x10^3/uL MPV (7.5-11.0) fL Gran % (36.0-66.0) % Immature Gran % (Auto) (0.00-0.4) % Nucleat RBC Rel Count (0.00-0.1) % Eos # (Auto) (0-0.5) x10^3/uL Immature Gran # (Auto) (0.00-0.03) x10^3u/L Absolute Lymphs (auto) (1.0-4.6) x10^3/uL Absolute Monos (auto) (0.0-1.3) x10^3/uL Absolute Nucleated RBC (0.00-0.01) x10^3u/L Lymphocytes % (24.0-44.0) % Monocytes % (0.0-12.0) % Eosinophils % (0.00-5.0) % Basophils % (0.0-0.4) % Absolute Granulocytes (1.4-6.9) x10^3/uL Basophils # (0-0.4) x10^3/uL PT (9.4-12.5) SECONDS INR (0.8-3.0) Sodium 141 (135-145) mmol/L Potassium 3.8 (3.5-5.1) mmol/L Chloride 103 (98-107) mmol/L Carbon Dioxide 30 (22-30) mmol/L Anion Gap 11.4 (5-15) MEQ/L BUN 12 (7-17) mg/dL Creatinine 0.59 (0.52-1.04) mg/dL Estimated GFR 100.6 ML/MIN Glucose 103 (74-106) mg/dL Lactic Acid (0.4-2.0) Calcium 9.2 (8.4-10.2) mg/dL Magnesium (1.6-2.3) mg/dL Total Bilirubin 0.50 (0.2-1.3) mg/dL AST 29 (14-36) U/L ALT 19 (0-35) U/L Alkaline Phosphatase 108 (38-126) U/L Troponin I (0.000-0.034) ng/mL NT-Pro-B Natriuret Pep (<300) pg/mL Serum Total Protein 8.2 (6.3-8.2) g/dL Albumin 4.3 (3.5-5.0) g/dL Procalcitonin 0.050 (0.030-0.080) ng/mL Influenza Type A Ag (NEGATIVE) Influenza Type B Ag (NEGATIVE) RSV (PCR) (NEGATIVE) SARS-CoV-2 (PCR) (NEGATIVE) Group A Strep Antibody (NEGATIVE) - Radiology Impressions Radiology Exams & Impressions: Radiology Procedures Category Date Time Status CHEST 1 VIEW (PORTABLE) Stat Exams 09/23/23 14:45 Taken - Other Procedures and Tests Respiratory Therapy 09/23/23 14:52 Respiratory Therapy Assessment DAILY 09/23/23 17:45 Oxygen Nasal Cannula 2 lpm Respiratory Therapy Consult ONCE Assessment/Plan (1) Acute bronchitis due to respiratory syncytial virus (RSV) Current Visit: Yes Status: Acute Assessment & Plan: Patient is positive for RSV Will begin antibiotics to cover for secondary bacterial infection RSV caused exacerbation of COPD Plan steroids and bronchodilators. Code(s): J20.5 - ACUTE BRONCHITIS DUE TO RESPIRATORY SYNCYTIAL VIRUS (2) Hypoxia Current Visit: Yes Status: Acute Assessment & Plan: Acute respiratory failure with hypoxia. Sats down to 88% Plan supplemental oxygen as needed Code(s): R09.02 - HYPOXEMIA (3) COPD exacerbation Current Visit: Yes Status: Acute Assessment & Plan: Wheezing and ronchi on exam Exacerbation due to RSV infection Plan steroids, antibiotics and bronchodilators. Patient quit smoking in 2017 Code(s): J44.1 - CHRONIC OBSTRUCTIVE PULMONARY DISEASE W (ACUTE) EXACERBATION (4) History of DVT (deep vein thrombosis) Current Visit: Yes Status: Chronic Assessment & Plan: Continue Coumadin Daily INR Code(s): Z86.718 - PERSONAL HISTORY OF OTHER VENOUS THROMBOSIS AND EMBOLISM (5) Seizure disorder Current Visit: Yes Status: Chronic Assessment & Plan: Continue home meds Code(s): G40.909 - EPILEPSY, UNSP, NOT INTRACTABLE, WITHOUT STATUS EPILEPTICUS Telemedicine Encounter - Telemedicine Encounter Telemedicine Encounter: The entirety of this encounter was performed via Telemedicine" after consent obtained. Labs and imaging reviewed Discussed with ER Provider 70 minutes spent on the care of this patient Shiv Freed MD [facility]
[2023-09-23] MEDS ORDERED: Zofran 4 MG/2 ML VIAL IV PRN (18:11)
[2023-09-23] MEDS ORDERED: FEVERALL 650 MG PR PRN (18:11)
[2023-09-23] MEDS ORDERED: PROVENTIL 2.5 MG/3 ML NEB IH PRN (18:21)
--- NOTE | 2023-09-23 18:34 | XRAY ---
Indication: Cough and short of breath. Comparison: September 18, 2022 Portable chest remains hyperinflated and clear. Heart and mediastinal structures within normal limits. Bony thorax intact again with osteopenia and old left rib fractures. Impression: Continued nonacute chest with chronic features.
[2023-09-23] MEDS: ROCEPHIN 1 GM / 100 ML NaCl 1 GM/100 ML IVPB IV SCH (19:10)
[2023-09-23] MEDS ORDERED: PULMICORT 0.5 MG/2 ML RESPULES IH ONE (19:39)
[2023-09-23] MEDS: COUMADIN PO SCH (19:59)
[2023-09-23] MEDS: PULMICORT 0.5 MG/2 ML RESPULES IH SCH (20:04)
[2023-09-23] MEDS: DUONEB 0.5-3 MG/3 ml Neb IH SCH (20:04)
[2023-09-23] MEDS ORDERED: FLUTICASONE-SALMETEROL 250-50 IH SCH (22:00)
[2023-09-23] MEDS: solu-MEDROL 40 MG, Sterile H2O 10 ml 1 ML IV SCH (22:08)
[2023-09-23] MEDS: Lasix 40 MG PO SCH (22:08)
[2023-09-23] MEDS: NEURONTIN PO SCH (22:08)
[2023-09-24 04:46] LABS: Hematocrit 42.1 % (35-47); Mean Cell Volume 90.9 fL (78-100); Mean Corpuscular Hemoglobin 28.1 pg (26-32); Mean Corpuscular Hgb Concent. 30.9 g/dL (32-36); Mean Platelet Volume 10.1 fL (7.5-11.0); Platelet Count 272 x10^3/uL (150-450); Red Blood Count 4.63 x10^6/uL (4.1-5.4); Red Cell Distribution Width 16.3 % (11.5-14.0); White Blood Count 3.4 x10^3/uL (4.0-10.5)
[2023-09-24 05:01] LABS: ALBUMIN 3.8 g/dL (3.5-5.0); BILIRUBIN,TOTAL 0.2 mg/dL (0.2-1.3); Creatinine 1 0.57 mg/dL (0.52-1.04); EST GLOMERULAR FILTRATION RATE 101.4 ML/MIN; INR 2.78 (0.8-3.0); PROTIME 28.3 SECONDS (9.4-12.5); Total Protein 7.4 g/dL (6.3-8.2)
[2023-09-24] MEDS ORDERED: Sterile H2O 10 ml IJ ONE (05:58)
[2023-09-24] MEDS ORDERED: solu-MEDROL ONE (05:58)
[2023-09-24] MEDS ORDERED: PULMICORT 0.5 MG/2 ML RESPULES IH ONE (06:36)
[2023-09-24] MEDS ORDERED: COUMADIN PO SCH (10:00)
[2023-09-24] MEDS ORDERED: NON-FORMULARY ITEM (Potassium Chloride [Klor-Con M10] 10 MEQ Tab.Er.Prt) PO SCH (10:00)
--- NOTE | 2023-09-24 10:50 | PCM.DS ---
Discharge Summary Date of Admission: 09/23/23 17:33 Date of Discharge: 09/24/23 Admitting Physician: JOE MINOR MD Consults: Consults on Case 09/24/23 08:28 Consult Podiatry ROUTINE Primary Care Provider: TOBIAS ROBERTSON Allergies Allergies No Known Drug Allergies Allergy (Verified 09/23/23 14:30) Hospital Summary - Hospital Course Hospital Course: is a 63 year old female with PMHx that includes COPD, Seizure disorder, GERD, History of DVT on Coumadin and morbid obesity. She was admitted on 09/23/23 with cold symptoms that started on Sunday with sore throat. She has had fever to 100.3 She has had a cough productive of clear phlegm. She has dyspnea on exertion and has been wheezing. She complained of sharp pain LLQ without radiation on admission that has since resolved. No provocative or palliative factors. She has had nausea and dry heaves. She has had urinary frequency. She has had diarrhea for 4 days and passed a small amount of blood in stool. Hgb stable. No other current symptoms. Since admission pt reports no more loose stools. She is feeling better. She continues to have some wheezing of LUIS. She is on 2lNC when she sleeps and denies any need for home O2. Will have RT eval for home O2 needs. She is currently sitting up in chair and not requiring oxygen, RA @ 95%. Her legs are edematous and she reports she used to see podiatry to have then wrapped. Will consult for them to be wrapped again and she will need to f/u OP with podiatry. Venous duplex of BLLE negative for DVT. After her legs are wrapped she can d/c today. She denies CP, SOB, abd. pain, N/V/D. She did qualify for home O2 and case management to set this up. - Vitals & Intake/Output Vital Signs: Vital Signs Temperature 97.9 F 09/24/23 07:06 Pulse Rate 65 09/24/23 07:06 Respiratory Rate 16 09/24/23 07:06 Blood Pressure 134/62 09/24/23 07:06 O2 Sat by Pulse Oximetry 95 09/24/23 07:06 Intake & Output: Intake & Output 09/21/23 09/22/23 09/23/23 09/24/23 10:59 10:59 11:59 11:59 Intake Total 1280 Balance 1280 Weight 133.5 kg - Lab Result Diagrams: 09/24/23 04:25 09/24/23 04:25 Lab Results-Last 24 Hrs: Lab Results-Last 24 Hours 09/23/23 09/23/23 09/23/23 Range/Units 14:35 14:58 15:00 WBC 5.3 (4.0-10.5) x10^3/uL RBC 4.73 (4.1-5.4) x10^6/uL Hgb 13.1 (12.0-16.0) g/dL Hct 43.2 (35-47) % MCV 91.3 (78-100) fL MCH 27.7 (26-32) pg MCHC 30.3 L (32-36) g/dL RDW 16.0 H (11.5-14.0) % Plt Count 257 (150-450) x10^3/uL MPV 10.2 (7.5-11.0) fL Gran % 71.7 H (36.0-66.0) % Immature Gran % (Auto) 0.4 (0.00-0.4) % Nucleat RBC Rel Count 0.0 (0.00-0.1) % Eos # (Auto) 0.01 (0-0.5) x10^3/uL Immature Gran # (Auto) 0.02 (0.00-0.03) x10^3u/L Absolute Lymphs (auto) 1.07 (1.0-4.6) x10^3/uL Absolute Monos (auto) 0.37 (0.0-1.3) x10^3/uL Absolute Nucleated RBC 0.00 (0.00-0.01) x10^3u/L Lymphocytes % 20.3 L (24.0-44.0) % Monocytes % 7.0 (0.0-12.0) % Eosinophils % 0.2 (0.00-5.0) % Basophils % 0.4 (0.0-0.4) % Absolute Granulocytes 3.77 (1.4-6.9) x10^3/uL Basophils # 0.02 (0-0.4) x10^3/uL PT (9.4-12.5) SECONDS INR (0.8-3.0) Sodium (135-145) mmol/L Potassium (3.5-5.1) mmol/L Chloride (98-107) mmol/L Carbon Dioxide (22-30) mmol/L Anion Gap (5-15) MEQ/L BUN (7-17) mg/dL Creatinine (0.52-1.04) mg/dL Estimated GFR ML/MIN Glucose (74-106) mg/dL Lactic Acid 1.0 (0.4-2.0) Calcium (8.4-10.2) mg/dL Magnesium (1.6-2.3) mg/dL Total Bilirubin (0.2-1.3) mg/dL AST (14-36) U/L ALT (0-35) U/L Alkaline Phosphatase (38-126) U/L Troponin I (0.000-0.034) ng/mL NT-Pro-B Natriuret Pep (<300) pg/mL Serum Total Protein (6.3-8.2) g/dL Albumin (3.5-5.0) g/dL Procalcitonin (0.030-0.080) ng/mL Influenza Type A Ag NEGATIVE (NEGATIVE) Influenza Type B Ag NEGATIVE (NEGATIVE) RSV (PCR) POSITIVE A (NEGATIVE) SARS-CoV-2 (PCR) NEGATIVE (NEGATIVE) Group A Strep Antibody NOT DETECTED (NEGATIVE) 09/23/23 09/23/23 09/23/23 Range/Units 15:00 15:00 15:00 WBC (4.0-10.5) x10^3/uL RBC (4.1-5.4) x10^6/uL Hgb (12.0-16.0) g/dL Hct (35-47) % MCV (78-100) fL MCH (26-32) pg MCHC (32-36) g/dL RDW (11.5-14.0) % Plt Count (150-450) x10^3/uL MPV (7.5-11.0) fL Gran % (36.0-66.0) % Immature Gran % (Auto) (0.00-0.4) % Nucleat RBC Rel Count (0.00-0.1) % Eos # (Auto) (0-0.5) x10^3/uL Immature Gran # (Auto) (0.00-0.03) x10^3u/L Absolute Lymphs (auto) (1.0-4.6) x10^3/uL Absolute Monos (auto) (0.0-1.3) x10^3/uL Absolute Nucleated RBC (0.00-0.01) x10^3u/L Lymphocytes % (24.0-44.0) % Monocytes % (0.0-12.0) % Eosinophils % (0.00-5.0) % Basophils % (0.0-0.4) % Absolute Granulocytes (1.4-6.9) x10^3/uL Basophils # (0-0.4) x10^3/uL PT 25.4 H (9.4-12.5) SECONDS INR 2.47 (0.8-3.0) Sodium (135-145) mmol/L Potassium (3.5-5.1) mmol/L Chloride (98-107) mmol/L Carbon Dioxide (22-30) mmol/L Anion Gap (5-15) MEQ/L BUN (7-17) mg/dL Creatinine (0.52-1.04) mg/dL Estimated GFR ML/MIN Glucose (74-106) mg/dL Lactic Acid (0.4-2.0) Calcium (8.4-10.2) mg/dL Magnesium 2.1 (1.6-2.3) mg/dL Total Bilirubin (0.2-1.3) mg/dL AST (14-36) U/L ALT (0-35) U/L Alkaline Phosphatase (38-126) U/L Troponin I < 0.012 (0.000-0.034) ng/mL NT-Pro-B Natriuret Pep 748 (<300) pg/mL Serum Total Protein (6.3-8.2) g/dL Albumin (3.5-5.0) g/dL Procalcitonin (0.030-0.080) ng/mL Influenza Type A Ag (NEGATIVE) Influenza Type B Ag (NEGATIVE) RSV (PCR) (NEGATIVE) SARS-CoV-2 (PCR) (NEGATIVE) Group A Strep Antibody (NEGATIVE) 09/23/23 09/23/23 09/23/23 Range/Units 15:00 15:00 19:20 WBC (4.0-10.5) x10^3/uL RBC (4.1-5.4) x10^6/uL Hgb (12.0-16.0) g/dL Hct (35-47) % MCV (78-100) fL MCH (26-32) pg MCHC (32-36) g/dL RDW (11.5-14.0) % Plt Count (150-450) x10^3/uL MPV (7.5-11.0) fL Gran % (36.0-66.0) % Immature Gran % (Auto) (0.00-0.4) % Nucleat RBC Rel Count (0.00-0.1) % Eos # (Auto) (0-0.5) x10^3/uL Immature Gran # (Auto) (0.00-0.03) x10^3u/L Absolute Lymphs (auto) (1.0-4.6) x10^3/uL Absolute Monos (auto) (0.0-1.3) x10^3/uL Absolute Nucleated RBC (0.00-0.01) x10^3u/L Lymphocytes % (24.0-44.0) % Monocytes % (0.0-12.0) % Eosinophils % (0.00-5.0) % Basophils % (0.0-0.4) % Absolute Granulocytes (1.4-6.9) x10^3/uL Basophils # (0-0.4) x10^3/uL PT (9.4-12.5) SECONDS INR (0.8-3.0) Sodium 141 (135-145) mmol/L Potassium 3.8 (3.5-5.1) mmol/L Chloride 103 (98-107) mmol/L Carbon Dioxide 30 (22-30) mmol/L Anion Gap 11.4 (5-15) MEQ/L BUN 12 (7-17) mg/dL Creatinine 0.59 (0.52-1.04) mg/dL Estimated GFR 100.6 ML/MIN Glucose 103 (74-106) mg/dL Lactic Acid (0.4-2.0) Calcium 9.2 (8.4-10.2) mg/dL Magnesium (1.6-2.3) mg/dL Total Bilirubin 0.50 (0.2-1.3) mg/dL AST 29 (14-36) U/L ALT 19 (0-35) U/L Alkaline Phosphatase 108 (38-126) U/L Troponin I < 0.012 (0.000-0.034) ng/mL NT-Pro-B Natriuret Pep (<300) pg/mL Serum Total Protein 8.2 (6.3-8.2) g/dL Albumin 4.3 (3.5-5.0) g/dL Procalcitonin 0.050 (0.030-0.080) ng/mL Influenza Type A Ag (NEGATIVE) Influenza Type B Ag (NEGATIVE) RSV (PCR) (NEGATIVE) SARS-CoV-2 (PCR) (NEGATIVE) Group A Strep Antibody (NEGATIVE) 09/23/23 09/24/23 09/24/23 Range/Units 23:04 04:25 04:25 WBC 3.4 L (4.0-10.5) x10^3/uL RBC 4.63 (4.1-5.4) x10^6/uL Hgb 13.0 (12.0-16.0) g/dL Hct 42.1 (35-47) % MCV 90.9 (78-100) fL MCH 28.1 (26-32) pg MCHC 30.9 L (32-36) g/dL RDW 16.3 H (11.5-14.0) % Plt Count 272 (150-450) x10^3/uL MPV 10.1 (7.5-11.0) fL Gran % (36.0-66.0) % Immature Gran % (Auto) (0.00-0.4) % Nucleat RBC Rel Count (0.00-0.1) % Eos # (Auto) (0-0.5) x10^3/uL Immature Gran # (Auto) (0.00-0.03) x10^3u/L Absolute Lymphs (auto) (1.0-4.6) x10^3/uL Absolute Monos (auto) (0.0-1.3) x10^3/uL Absolute Nucleated RBC (0.00-0.01) x10^3u/L Lymphocytes % (24.0-44.0) % Monocytes % (0.0-12.0) % Eosinophils % (0.00-5.0) % Basophils % (0.0-0.4) % Absolute Granulocytes (1.4-6.9) x10^3/uL Basophils # (0-0.4) x10^3/uL PT (9.4-12.5) SECONDS INR (0.8-3.0) Sodium 141 (135-145) mmol/L Potassium 4.0 (3.5-5.1) mmol/L Chloride 107 (98-107) mmol/L Carbon Dioxide 27 (22-30) mmol/L Anion Gap 11 (5-15) MEQ/L BUN 12 (7-17) mg/dL Creatinine 0.57 (0.52-1.04) mg/dL Estimated GFR 101.4 ML/MIN Glucose 130 H (74-106) mg/dL Lactic Acid (0.4-2.0) Calcium 9.0 (8.4-10.2) mg/dL Magnesium (1.6-2.3) mg/dL Total Bilirubin 0.20 (0.2-1.3) mg/dL AST 26 (14-36) U/L ALT 17 (0-35) U/L Alkaline Phosphatase 92 (38-126) U/L Troponin I < 0.012 (0.000-0.034) ng/mL NT-Pro-B Natriuret Pep (<300) pg/mL Serum Total Protein 7.4 (6.3-8.2) g/dL Albumin 3.8 (3.5-5.0) g/dL Procalcitonin (0.030-0.080) ng/mL Influenza Type A Ag (NEGATIVE) Influenza Type B Ag (NEGATIVE) RSV (PCR) (NEGATIVE) SARS-CoV-2 (PCR) (NEGATIVE) Group A Strep Antibody (NEGATIVE) 09/24/23 Range/Units 04:25 WBC (4.0-10.5) x10^3/uL RBC (4.1-5.4) x10^6/uL Hgb (12.0-16.0) g/dL Hct (35-47) % MCV (78-100) fL MCH (26-32) pg MCHC (32-36) g/dL RDW (11.5-14.0) % Plt Count (150-450) x10^3/uL MPV (7.5-11.0) fL Gran % (36.0-66.0) % Immature Gran % (Auto) (0.00-0.4) % Nucleat RBC Rel Count (0.00-0.1) % Eos # (Auto) (0-0.5) x10^3/uL Immature Gran # (Auto) (0.00-0.03) x10^3u/L Absolute Lymphs (auto) (1.0-4.6) x10^3/uL Absolute Monos (auto) (0.0-1.3) x10^3/uL Absolute Nucleated RBC (0.00-0.01) x10^3u/L Lymphocytes % (24.0-44.0) % Monocytes % (0.0-12.0) % Eosinophils % (0.00-5.0) % Basophils % (0.0-0.4) % Absolute Granulocytes (1.4-6.9) x10^3/uL Basophils # (0-0.4) x10^3/uL PT 28.3 H (9.4-12.5) SECONDS INR 2.78 (0.8-3.0) Sodium (135-145) mmol/L Potassium (3.5-5.1) mmol/L Chloride (98-107) mmol/L Carbon Dioxide (22-30) mmol/L Anion Gap (5-15) MEQ/L BUN (7-17) mg/dL Creatinine (0.52-1.04) mg/dL Estimated GFR ML/MIN Glucose (74-106) mg/dL Lactic Acid (0.4-2.0) Calcium (8.4-10.2) mg/dL Magnesium (1.6-2.3) mg/dL Total Bilirubin (0.2-1.3) mg/dL AST (14-36) U/L ALT (0-35) U/L Alkaline Phosphatase (38-126) U/L Troponin I (0.000-0.034) ng/mL NT-Pro-B Natriuret Pep (<300) pg/mL Serum Total Protein (6.3-8.2) g/dL Albumin (3.5-5.0) g/dL Procalcitonin (0.030-0.080) ng/mL Influenza Type A Ag (NEGATIVE) Influenza Type B Ag (NEGATIVE) RSV (PCR) (NEGATIVE) SARS-CoV-2 (PCR) (NEGATIVE) Group A Strep Antibody (NEGATIVE) - Radiology Exams Ordered Rad Exams-Entire Visit: Radiology Procedures Category Date Time Status CHEST 1 VIEW (PORTABLE) Stat Exams 09/23/23 14:45 Completed VENOUS BILATERAL EXTREMITY [US] Routine Exams 09/24/23 08:00 Ordered - Procedures and Test Procedures and Tests throughout Hospitalization: Therapy Orders & Screens 09/23/23 14:52 Respiratory Therapy Assessment DAILY Comment: 09/23/23 17:45 Oxygen Nasal Cannula 2 lpm Comment: Respiratory Therapy Consult ONCE Comment: Reason For Exam: 09/23/23 18:09 PT Eval & Treat (MD Order) ONCE Reason for Eval:: Weakness Diagnosis: Cough, dyspnea OT Eval and Treat (MD Order) ONCE Comment: Physician Instructions: Reason For Exam: Diagnosis: Cough, dyspnea 09/23/23 18:38 OT Screen per Nursing Assess ONCE Comment: Protocol Order Physician Instructions: Greater than 3 points order OT Admission Screening Reason For Exam: Triggered on Admission Diagnosis: Cough, dyspnea Open Wound/Cellutlitis/Pressure Ulcers: Yes Acute Fx/ORIF/Change in wt bearing status: No Severe MUSCULOSKELETAL pain: No ADL Dysfunction: No Acute CVA w/Hemiparesis/Hemiplegia: No Decreased Functional Mobility/Strength: Yes Sprain/Strain: No Acute Post-op Mobility Dysfunction: No Total Points: 6 PT Screen per Nursing Assess ONCE Comment: Protocol Order Physician Instructions: Greater than 3 points order PT Admission Screenin Reason For Exam: Triggered on Admission Diagnosis: Cough, dyspnea Open Wound/Cellutlitis/Pressure Ulcers: Yes Acute Fx/ORIF/Change in wt bearing status: No Severe MUSCULOSKELETAL pain: No ADL Dysfunction: No Acute CVA w/Hemiparesis/Hemiplegia: No Decreased Functional Mobility/Strength: Yes Sprain/Strain: No Acute Post-op Mobility Dysfunction: No Total Points: 6 09/24/23 08:31 RT Miscellaneous Order ROUTINE Comment: Physician Instructions: Reason For Exam: eval for home O2 Diagnosis: Cough, dyspnea Discharge Exam General Appearance: no apparent distress, alert, obese Neurologic Exam: alert, oriented x 3, cooperative, normal mood/affect, nml cerebellar function, sensation nml, No motor deficits Eye Exam: PERRL, EOMI, eyes nml inspection Ears, Nose, Throat Exam: normal ENT inspection, pharynx normal, moist mucous membranes Neck Exam: normal inspection, non-tender, supple, full range of motion Respiratory Exam: wheezing (LUIS), No respiratory distress Cardiovascular Exam: regular rate/rhythm, normal heart sounds Gastrointestinal/Abdomen Exam: soft, No tenderness, No mass Pelvic Exam: deferred Rectal Exam: deferred Back Exam: normal inspection, normal range of motion, No CVA tenderness, No v ertebral tenderness Extremity Exam: normal inspection, normal range of motion, pedal edema, swelling (and discoloration of BLLE) Skin Exam: normal color, warm, dry Final Diagnosis/Problem List - Final Discharge Diagnosis/Problem (1) Acute bronchitis due to respiratory syncytial virus (RSV) Current Visit: Yes Status: Acute Assessment & Plan: -Patient is positive for RSV -Will begin antibiotics to cover for secondary bacterial infection -RSV caused exacerbation of COPD -Plan steroids and bronchodilators. Code(s): J20.5 - ACUTE BRONCHITIS DUE TO RESPIRATORY SYNCYTIAL VIRUS (2) COPD exacerbation Current Visit: Yes Status: Acute Assessment & Plan: -Wheezing ULIS - Exacerbation due to RSV infection - Plan steroids, antibiotics and bronchodilators. - Patient quit smoking in 2016 Code(s): J44.1 - CHRONIC OBSTRUCTIVE PULMONARY DISEASE W (ACUTE) EXACERBATION (3) Hypoxia Current Visit: Yes Status: Acute Assessment & Plan: -Acute respiratory failure with hypoxia. -Sats down to 88% on admission -Plan supplemental oxygen as needed 09/23 - RT eval for home O2- she did qualify and CM to set up. - 95% RA when up in chair. Code(s): R09.02 - HYPOXEMIA (4) History of DVT (deep vein thrombosis) Current Visit: Yes Status: Chronic Assessment & Plan: - Continue Coumadin - Daily INR - Venous duplex negative for DVT Code(s): Z86.718 - PERSONAL HISTORY OF OTHER VENOUS THROMBOSIS AND EMBOLISM (5) Seizure disorder Current Visit: Yes Status: Chronic Assessment & Plan: -Continue home meds Code(s): G40.909 - EPILEPSY, UNSP, NOT INTRACTABLE, WITHOUT STATUS EPILEPTICUS (6) Edema of lower extremity due to peripheral venous insufficiency Current Visit: Yes Status: Chronic Assessment & Plan: - appears to be chronic - VD BLLE negative for DVT - podiatry consult for legs to be wrapped- will need to f/u OP. Code(s): I87.2 - VENOUS INSUFFICIENCY (CHRONIC) (PERIPHERAL) - Discharge Discharge Date: 09/24/23 Disposition: Home, Self-Care Condition: Stable Prescriptions: New Doxycycline Hyclate 100 mg [Vibramycin 100 MG] 100 mg PO BID 5 Days #10 tab Prednisone 20 mg [Deltasone 20 mg] 20 mg PO BID 5 Days #10 tablet Budesonide/Formoterol Fumarate [Budesonide-Formoterol 160-4.5] 10.2 gm IH BID 30 Days #1 inhaler Continue Albuterol 2.5 mg/3 ml Neb [Proventil 2.5 mg/3 ml Neb] 1 amp IH Q4-6HPRN PRN PRN Reason: Shortness Of Breath/Wheezing Furosemide 40 mg PO TID 30 Days #90 tablet Gabapentin [Neurontin ] 300 mg PO TID capsule Ergocalciferol (Vitamin D2) [Vitamin D2] 50,000 unit PO UD Potassium Chloride [Klor-Con M10] 20 meq PO DAILY Oxycodone HCl/Acetaminophen [Percocet 10-325 mg Tablet] 1 tab PO BIDPRN PRN PRN Reason: Pain Warfarin Sodium 5 mg PO DAILY Fluticasone Propion/Salmeterol [Fluticasone-Salmeterol 250-50] 1 puff IH BID Additional Instructions: WEAR 3L/NC AT HOME AT ALL TIMES. CALL ANAT AT [phone] WHEN YOU LEAVE [facility] SO THEY CAN MEET YOU AT YOUR HOME TO DELIVER YOUR OXYGEN. [facility] HAS BEEN SET UP FOR YOU. THEY WILL CALL YOU TO ARRANGE A TIME TO COME SEE YOU. IF YOU NEED ANYTHING BEFORE THEIR FIRST VISIT, YOU CAN CALL THEM AT [phone] Follow up with: TJ CHING, LIN [ACTIVE STAFF] - TOBIAS ROBERTSON [Primary Care Provider] - 10/02/23 10:15 am
[2023-09-24] MEDS: Protonix 40MG Tablet PO SCH (11:25)
[2023-09-24] MEDS: Klor Con PO SCH (11:26)
--- NOTE | 2023-09-24 11:27 | XRAY ---
Indication: Bilateral lower extremity edema and erythema. Two-dimensional sonogram and color Doppler imaging major venous vessels left and right leg performed. Comparison: September 20, 2022 No thrombus seen in the examined deep venous vessels of the left and right leg including greater saphenous veins. Veins demonstrate normal compressibility. Venous waveforms are normal with and without augmentation. Impression: Left and right legs continue to be negative for DVT.
[2023-09-24] MEDS: OXYCODONE-ACETAMINOPHEN 10-325 PO PRN (11:29)
[2023-09-24 13:40] VITALS: O2SAT 97
[2023-09-24 16:07] VITALS: BP 112/63; PULSE 72; RESP 16; TEMP 97.7
[2023-09-24] MEDS ORDERED: PULMICORT 0.5 MG/2 ML RESPULES IH SCH (19:00)
[2023-09-24] MEDS ORDERED: ROCEPHIN 1 GM / 100 ML NaCl 1 GM/100 ML IVPB IV SCH (22:00)
[2023-10-15] MEDS ORDERED: VITAMIN D2 PO SCH (10:00)
== END 2023-09-24 17:45 | disposition home health service (06) ==
LOC: ED 14:15 → MED SURG 17:33
PROVIDERS: ADMIT Internal Medicine; ATTEND Internal Medicine
DX: J20.5 Acute bronchitis due to respiratory syncytial virus (principal); J44.1 Chronic obstructive pulmonary disease with (acute) exacerbation; R09.02 Hypoxemia; Z86.718 Personal history of other venous thrombosis and embolism; G40.909 Epilepsy, unspecified, not intractable, without status epilepticus; I87.2 Venous insufficiency (chronic) (peripheral); R50.9 Fever, unspecified; R35.0 Frequency of micturition; R19.7 Diarrhea, unspecified; E66.01 Morbid (severe) obesity due to excess calories; M21.42 Flat foot [pes planus] (acquired), left foot; Z79.01 Long term (current) use of anticoagulants; Z79.899 Other long term (current) drug therapy; Z20.828 Contact with and (suspected) exposure to other viral communicable diseases
CPT/HCPCS: 0241U; 36000; 36415; 71045; 80053; 83605; 83735; 83880; 84145; 84484; 85025; 85027; 85610; 87040; 87651; 93005; 93041; 93970; 94640; 94762; 96374; 97161; 97165; 99285; J0696; J2920; J2930; A9270-GY